=== PATIENT | male | born 1950 | race Caucasian/White ===

== ENCOUNTER 2017-07-01 02:29 | Inpatient (IN) | payer OTHER, MEDICARE ==
[2017-07-01] VITALS (7 sets, daily range): BP systolic 126–164; BP diastolic 57–79
[~2017-07-01] VITALS: Ht 180.3 cm; Wt 112.5 kg
[~2017-07-01 02:29] MED LIST: ASPIRIN81 M2 PO; ASPRIMOX 325 M325 MG PO; BENZTROPINE MES1 MG PO; CELEBREX 200 M200 M1 PO; CLEOCIN HCL150 MG PO; CYMBALTA30 MG PO; EFFEXOR50 MG PO; FLORINEF ACETA0.1 MG PO; HYDROCODON-ACE1 EAC5 PO; INVEGA9 MG PO; LITHIUM CARBON300 M6 PO; LORAZEPAM 0.50.5 MG PO; LOVENOX SC; METAMUCIL PAC1 UDPK1 GT; MIDODRINE HCL 55 M1 PO; MIDODRINE HCL10 MG PO; MIRTAZAPINE45 MG PO; NEURONTIN 300300 M1 PO; NORCO 10-325 T1 EACH; OXCARBAZEPINE600 MG PO; OXYCODONE HCL 55 MG PO; OXYIR 5 MG CAPSU5 M1 PO; PEPCID20 MG PO; PERCOCET 5-3251 EACH PO; QUETIAPINE FUMA50 MG PO; RISPERDAL 1 MG T1 MG PO; RISPERDAL2 MG PO; SEROQUEL XR400 M1 PO; SYNTHROID50 MCG PO; TL-FOL 500 CAP1 EACH PO; TRAMADOL 50 MG50 MG PO; VALIUM5 MG PO; VENLAFAXINE PO; VITAMIN B-12500 MCG PO; XANAX 0.5 MG0.5 M1 PO; XANAX 0.5 MG0.5 MG PO; XARELTO10 M1 PO
[2017-07-01] MEDS ORDERED: EFFEXOR 5050 MG/1 T1 PO (02:45)
[2017-07-01] MEDS ORDERED: QUETIAPINE FUM100 MG PO (02:46)
[2017-07-01] MEDS ORDERED: MIDODRINE HCL 55 M1 PO (02:47)
[2017-07-01] MEDS ORDERED: LITHIUM CARBON300 M6 (02:48)
[2017-07-01] MEDS ORDERED: OMEPRAZOLE40 MG PO (02:48)
[2017-07-01 03:17] LABS: ABSOLUTE EOSINOPHILS 0.4 thou/uL (0.0-0.7); ABSOLUTE LYMPHOCYTES 1.5 thou/uL (0.8-5.3); ABSOLUTE MONOCYTES 0.7 thou/uL (0.0-1.2); ABSOLUTE NEUTROPHILS 4.5 thou/uL (1.6-8.1); BASOPHILS 0.6 %; HEMATOCRIT 43.1 % (42.0-52.0); HEMOGLOBIN 14.4 gm/dL (14.0-18.0); LYMPHOCYTES 20.6 %; MCH 32.3 pg (26.0-34.0); MCHC 33.3 g/dL (28.0-37.0); MONOCYTES 9.8 %; MPV 7.6 fl. (7.2-11.1); NUCLEATED RBCS 0 /100WBC; PLATELET COUNT* 205 thou/uL (150-400); RBC 4.45 mil/uL (4.50-6.00); RDW-CV 14.6 % (10.5-14.5); WBC 7.2 thou/uL (4.0-11.0)
[2017-07-01 03:21] LABS: ANION GAP 2 mmol/L (7-16); BUN 14 mg/dL (7-18); CALCIUM 9.4 mg/dL (8.5-10.1); CHLORIDE 102 mmol/L (98-107); CO2 29 mmol/L (21-32); CREATININE 1.5 mg/dL (0.6-1.3); GLUCOSE 112 mg/dL (70-99); POTASSIUM 3.9 mmol/L (3.5-5.1); SODIUM 133 mmol/L (136-145)
[2017-07-01 03:31] LABS: ALBUMIN 3.9 g/dL (3.4-5.0); ALKALINE PHOSPHATASE 125 U/L (46-116); LIPASE 277 U/L (73-393); NT-PRO BRAIN NAT PEPTIDE 160 pg/mL (<300); SGOT 16 U/L (15-37); SGPT 30 U/L (30-65); TOTAL BILIRUBIN 0.3 mg/dL (<0.1-1.0); TOTAL PROTEIN 6.8 g/dL (6.4-8.2); TROPONIN-I LEVEL <0.06 ng/mL (<0.06)
[2017-07-01 03:41] LABS: URINE BILIRUBIN NEGATIVE (Negative); URINE BLOOD NEGATIVE (Negative); URINE CLARITY CLEAR; URINE COLOR YELLOW; URINE GLUCOSE-RANDOM NEGATIVE (Negative); URINE KETONES NEGATIVE (Negative); URINE LEUKOCYTES-REFLEX NEGATIVE (Negative); URINE NITRITE-REFLEX NEGATIVE (Negative); URINE PROTEIN NEGATIVE (Negative); URINE UROBILINOGEN 0.2 E.U./dl (0.2-1.0)
--- NOTE | 2017-07-01 14:31 | 2DMMODE ---
[place] [address] 2 D/M-MODE ECHOCARDIOGRAM Name: VAUGHNDESTINY ANDRZEJ Room: [facility] IN [facility]#: [id number] Admission: 07/01/17 Attend Phys: Vivienne Marquez, Discharge: Date of : 48 Date of Service: 07/01/17 1430 Report #: [id number] THIS REPORT FOR: //name// APPROVED REPORT Study performed: 07/01/2017 10:28:28 EXAM: Comprehensive 2D, Doppler, and color-flow Echocardiogram Patient Location: In-Patient Room #: [facility] Status: routine BSA: 2.20 HR: 42 bpm BP: 152/71 mmHg Rhythm: NSR Other Information Study Quality: Good Indications Syncope 2D Dimensions LVEF(%): 72.47 (>50%) IVSd: 11.53 (7-11mm) LVOT Diam: 21.04 (18-24mm) LVDd: 52.42 mm PWd: 11.05 (7-11mm) Ascending Ao: 35.79 (22-36mm) LVDs: 30.46 (25-40mm) Aortic Root: 34.77 mm Amador's LVEF: 72.47 % Volumes Left Atrial Volume (Systole) LA ESV Index: 29.40 mL/m2 Aortic Valve AoV Peak Kenyon.: 1.86 m/s AO Peak Gr.: 13.81 mmHg LVOT Max P.93 mmHg AO Mean Gr.: 5.94 mmHg LVOT Mean P.18 mmHg LVOT Max V: 1.22 m/s AO V2 VTI: 39.34 cm LVOT Mean V: 0.65 m/s COREY (VTI): 2.56 cm2 LVOT V1 VTI: 28.96 cm Mitral Valve E/A Ratio: 1.21 [place] [address] 2 D/M-MODE ECHOCARDIOGRAM Name: DESTINY MENDES Room: [address] IN .R.#: [id number] Admission: 07/01/17 Attend Phys: Vivienne Marquez, Discharge: Date of : 48 Date of Service: 07/01/17 1430 Report #: [id number] MV Decel. Time: 178.19 ms MV E Max Kenyon.: 1.10 m/s MV PHT: 51.67 ms MVA (PHT): 4.26 cm2 TDI E/Lateral E': 10.00 E/Medial E': 13.75 Medial E' Kenyon.: 0.08 m/s Lateral E' Kenyon.: 0.11 m/s Pulmonary Valve PV Peak Kenyon.: 1.04 m/s PV Peak Gr.: 4.29 mmHg Left Ventricle The left ventricle is normal size. There is normal LV segmental wall motion. There is normal left ventricular wall thickness. Left ventricular systolic function is normal. The left ventricular ejection fraction is within the normal range. LVEF is 60%. The left ventricular diastolic function is normal. Right Ventricle The right ventricle is normal size. The right ventricular systolic function is normal. Atria The left atrium size is normal. The right atrium size is normal. Aortic Valve Mild aortic valve sclerosis. Trace aortic regurgitation. There is no aortic valvular stenosis. Mitral Valve Mild mitral annular calcification. Mild mitral regurgitation. No evidence of mitral valve stenosis. Tricuspid Valve The tricuspid valve is normal in structure. Unable to assess PA pressure. Trace tricuspid regurgitation. Pulmonic Valve The pulmonary valve is normal in structure. Mild pulmonic regurgitation. Great Vessels The aortic root is normal in size. IVC [place] [address] 2 D/M-MODE ECHOCARDIOGRAM Name: DESTINY MENDES Room: [address] IN [facility]#: [id number] Admission: 07/01/17 Attend Phys: Vivienne Marquez, Discharge: Date of : 48 Date of Service: 07/01/17 1430 Report #: [id number] collapses with >50% inspiration Pericardium There is no pericardial effusion. <Conclusion> The left ventricle is normal size. There is normal left ventricular wall thickness. Left ventricular systolic function is normal. The left ventricular ejection fraction is within the normal range. LVEF is 60%. The left ventricular diastolic function is normal. The left atrium size is normal. Mild aortic valve sclerosis. Trace aortic regurgitation. There is no aortic valvular stenosis. Mild mitral annular calcification. Mild mitral regurgitation. No evidence of mitral valve stenosis. The tricuspid valve is normal in structure. IVC is normal in size and collapses with >50% inspiration There is no pericardial effusion. There is normal LV segmental wall motion. <ELECTRONICALLY SIGNED> By: Leif Ruiz MD, FACC 07/01/17 1430 1430 1430 Leif Ruiz MD, FACC /INF
--- NOTE | 2017-07-01 15:55 | EKG ---
[place] [address] ELECTROCARDIOGRAM REPORT Name: DESTINY MENDES Room: [address] ADM IN M.R.#: [id number] Admission: 07/01/17 Attend Phys: Vivienne Marquez MD Discharge: Date of : 48 Report #: [id number] THIS REPORT FOR: //name// [facility] ED Test Date: 2017-07-01 Test Time: 02:40:29 Pat Name: DESTINY MENDES Department: Room: [facility] Gender: M Software Test Specialist: BETTYE Desai : 1950 Requested By: Maddie Ortega Order Number: [id number] MD: Leif Ruiz Measurements Intervals [place] Rate: 42 P: 20 NM: 181 QRS: -27 QRSD: 130 T: 63 QT: 519 QTc: 434 Interpretive Statements Sinus bradycardia Atrial premature complex Left bundle branch block Compared to ECG 04/03/2017 17:11:43 Heart rate has decreased Electronically Signed On 07-01-2017 15:55:45 CRYSTAL MOUNTER by Leif Ruiz [email or web address] <ELECTRONICALLY SIGNED> By: Leif Ruiz MD, [facility] 07/01/17 1555 0240 0240 Leif Ruiz MD, [facility] /EPI
--- NOTE | 2017-07-01 17:35 | CON ---
[address] [address] CONSULTATION Name: VAUGHNDESTINY DONNELLY Room: [address] IN M.R.#: [id number] Admission: 07/01/17 Attend Phys: Vivienne Marquez MD Discharge: Date of : 48 Report #: [id number] THIS REPORT FOR: //name// CC: Vivienne López DATE OF SERVICE: 07/01/2017 HISTORY OF PRESENT ILLNESS: This is a 67-year-old male patient who was evaluated by me for episodes of syncope. It looks like this patient has a complicated history. He indicates that he started having orthostatic hypotension few years ago. He estimated to be 2-3 years. He has followed up with Cardiology for that. They have tried him on the medications, but that has not helped. During this time, he also developed tremor. Tremor is in both upper extremities. It significantly interferes with the daily activity. He indicated that it is not Parkinson disease, but he does not know what it is. REVIEW OF SYSTEMS: Review of system is complicated by the fact that this patient has a significant psychiatric history and he has used multiple psychiatric medications, including Seroquel and lithium. He does not know what he is on at the moment. He has been diagnosed with bipolar disorder, anxiety and panic attack and now he has multiple syncope episodes. He has bradycardia. He has a history of bipolar disorder. He says that he is not diabetic, but one of the note in the computer indicates that he has a history of that. In any case, it does not look like it is severe, even if he has that. As mentioned above, he denies that. His short-term memory is very poor. I carried out 14-point review of system and he does not think that his vision has changed much. He is not having much respiratory, GI, , musculoskeletal, constitutional, dermatological, hematological, throat, endocrine or allergic symptom associated with the present symptomatology. PAST MEDICAL HISTORY: Positive for psychiatric problem. FAMILY HISTORY: Negative for early age stroke. SOCIAL HISTORY: The patient lives with his and she helps him, but she also works and the patient is able to do the things by himself. He denies the use of alcohol. PHYSICAL EXAMINATION: The patient's examination indicate he is alert. He is responsive. He cannot tell me what month it is. He cannot tell me what day it is. So, his memory is impaired, but his speech looks intact. His cranial nerve examination 2-12 mostly looks unremarkable. His strength looks symmetrical. His position sense is intact. His reflexes are diminished. His tone looks unremarkable. There is no carotid bruit in this patient. There is no thyroid mass. There is no papilledema. There is no meningeal sign. His pulses are [facility] [address] [place] [address] CONSULTATION Name: DESTINY MENDES Room: [address] IN ..#: [id number] Admission: 07/01/17 Attend Phys: Vivienne Marquez MD Discharge: Date of : 48 Report #: [id number] palpable. He has no edema, cyanosis or jaundice. Cardiac examination does not appear to be showing much abnormality clinically, but his blood pressure has been low and his vital signs indicate that his pulse is persistently low. LABORATORY DATA: His hemoglobin is normal and his sodium is a trace low at 133. His TSH is trace high. His lithium level is high. He did have a CT scan of the head, which showed atrophy, but nothing acute. IMPRESSION: Multiple things may be playing a role in the patient's symptoms. He is lithium toxic and that may be contributing to his symptoms. Clinically, it would appear that he is developing dementia and that would correlate with brain atrophy. The main question is whether he is developing multisystem atrophy which is causing him postural hypotension as well as tremor needs to be addressed. He also has been on multiple medications for his psychiatric condition and that can also predispose him to develop Parkinson disease. Dementia can also have autonomic features depending upon what dementia it is and all these things need to be addressed in this patient, but lot of testing like DaTscan need to be done as an outpatient. RECOMMENDATIONS: 1. Agree with the Cardiology consult. 2. I will suggest consult with Psychiatry if it can be obtained to see if he can be put on some more benign medication for his bipolar disorder. 3. As an outpatient, he should have workup starting with a DaTscan and then also may be some consideration need to be given for multisystem atrophy, but that is unfortunately an untreatable condition and postural hypotension of that need to be treated symptomatically. All of it was discussed with the patient in detail and more than 50 minutes of time was spent taking care of this patient today and majority of that time was spent counseling this patient on the above matters. We will get an MRI and B12 done when he is here and we will also try to do a copper level because of his bariatric surgery in the past. <ELECTRONICALLY SIGNED> By: Hardik Jenkins MD 07/01/17 1735 1011 [id number] Jenkins MD /nt
[2017-07-02 04:00] VITALS: BP 152/72
[2017-07-02 05:30] LABS: ABSOLUTE BASOPHILS 0.1 thou/uL (0.0-0.2); ABSOLUTE EOSINOPHILS 0.3 thou/uL (0.0-0.7); ABSOLUTE LYMPHOCYTES 1.5 thou/uL (0.8-5.3); ABSOLUTE MONOCYTES 0.7 thou/uL (0.0-1.2); ABSOLUTE NEUTROPHILS 4.5 thou/uL (1.6-8.1); BASOPHILS 0.9 %; EOSINOPHILS 4.8 %; HEMATOCRIT 42.3 % (42.0-52.0); HEMOGLOBIN 14.4 gm/dL (14.0-18.0); LYMPHOCYTES 21.5 %; MCH 32.6 pg (26.0-34.0); MCHC 34.1 g/dL (28.0-37.0); MCV 95.5 fL (80.0-100.0); MPV 7.5 fl. (7.2-11.1); NUCLEATED RBCS 0 /100WBC; PLATELET COUNT* 209 thou/uL (150-400); POLYS 62.8 %; RBC 4.43 mil/uL (4.50-6.00); RDW-CV 14.3 % (10.5-14.5); WBC 7.2 thou/uL (4.0-11.0)
[2017-07-02 05:38] LABS: CREATININE 1.2 mg/dL (0.6-1.3); POTASSIUM 4.5 mmol/L (3.5-5.1)
[2017-07-02 08:00] VITALS: BP 159/71
[2017-07-02 11:36] VITALS: BP 159/70
[2017-07-02 15:32] VITALS: BP 160/77
[2017-07-02 20:00] VITALS: BP 177/73
[2017-07-03] VITALS: BP 136/57
[2017-07-03 04:00] VITALS: BP 136/69
[2017-07-03 05:31] LABS: ABSOLUTE EOSINOPHILS 0.3 thou/uL (0.0-0.7); ABSOLUTE LYMPHOCYTES 1.8 thou/uL (0.8-5.3); ABSOLUTE MONOCYTES 0.9 thou/uL (0.0-1.2); ABSOLUTE NEUTROPHILS 4.7 thou/uL (1.6-8.1); BASOPHILS 0.6 %; EOSINOPHILS 4.4 %; HEMATOCRIT 44.6 % (42.0-52.0); HEMOGLOBIN 15.2 gm/dL (14.0-18.0); LYMPHOCYTES 23.5 %; MCH 32.4 pg (26.0-34.0); MCV 95.1 fL (80.0-100.0); MONOCYTES 11.1 %; MPV 7.6 fl. (7.2-11.1); NUCLEATED RBCS 0 /100WBC; PLATELET COUNT* 216 thou/uL (150-400); POLYS 60.4 %; RBC 4.69 mil/uL (4.50-6.00); RDW-CV 14.5 % (10.5-14.5); WBC 7.9 thou/uL (4.0-11.0)
[2017-07-03 05:34] LABS: ALBUMIN 3.8 g/dL (3.4-5.0); CALCIUM 9.3 mg/dL (8.5-10.1); CREATININE 1.3 mg/dL (0.6-1.3); POTASSIUM 4.6 mmol/L (3.5-5.1); TOTAL BILIRUBIN 0.7 mg/dL (<0.1-1.0); TOTAL PROTEIN 6.8 g/dL (6.4-8.2)
[2017-07-03 08:00] VITALS: BP 147/69
[2017-07-03 10:51] VITALS: BP 147/69
[2017-07-03 12:07] VITALS: BP 147/69
[2017-07-03 15:37] VITALS: BP 171/79
[2017-09-13] MEDS ORDERED: QUETIAPINE FUM100 MG PO (10:44)
== END 2017-07-03 16:55 | disposition home or self-care (01) | DRG 74 ==
LOC: M.ERS 02:29 → M.ICU 04:14 → M.2W 04:14 → M.TBA-ER 04:14 → M.ICU 07:50 → M.2W 16:41
PROVIDERS: Emergency Medicine; Internal Medicine; ADMIT Internal Medicine
DX: G90.8 Other disorders of autonomic nervous system (principal); E87.1 Hypo-osmolality and hyponatremia; N17.9 Acute kidney failure, unspecified; I95.1 Orthostatic hypotension; K21.9 Gastro-esophageal reflux disease without esophagitis; E11.9 Type 2 diabetes mellitus without complications; F31.9 Bipolar disorder, unspecified; Z96.651 Presence of right artificial knee joint; G47.33 Obstructive sleep apnea (adult) (pediatric); S69.91XA Unspecified injury of right wrist, hand and finger(s), initial encounter; T56.894A Toxic effect of other metals, undetermined, initial encounter; G20 Parkinson's disease; F32.9 Major depressive disorder, single episode, unspecified; I48.0 Paroxysmal atrial fibrillation; I25.10 Atherosclerotic heart disease of native coronary artery without angina pectoris; F41.0 Panic disorder [episodic paroxysmal anxiety]; W19.XXXA Unspecified fall, initial encounter; F02.80 Dementia in other diseases classified elsewhere, unspecified severity, without behavioral disturbance, psychotic disturbance, mood disturbance, and anxiety; Z90.49 Acquired absence of other specified parts of digestive tract; Z79.899 Other long term (current) drug therapy; Z79.82 Long term (current) use of aspirin; Z91.048 Other nonmedicinal substance allergy status; Y93.89 Activity, other specified; Y92.89 Other specified places as the place of occurrence of the external cause; Y99.8 Other external cause status; Z87.891 Personal history of nicotine dependence

== ENCOUNTER 2017-07-24 18:08 | Inpatient (IN) | payer OTHER, MEDICARE ==
[~2017-07-24] VITALS: Ht 175.3 cm; Wt 114.8 kg
--- NOTE | ~2017-07-24 | PROC ---
[address] [address] PROCEDURE REPORT Name: DESTINY MENDES Room: [address] ADM IN M.R.#: [id number] Admission: 07/24/17 Attend Phys: Pelon German MD Discharge: Date of : 48 Report #: [id number] THIS REPORT FOR: //name// For GI report, please see the Provation report in Perceptive 7 content. By: [id number] Records Staff RAOUL /SANTO
[~2017-07-24 18:08] MED LIST changes: +EFFEXOR 5050 MG/1 T1 PO; +LITHIUM CARBON300 M6; +OMEPRAZOLE40 MG PO; +QUETIAPINE FUM100 MG PO
[2017-07-24 18:11] VITALS: BP 106/60
[2017-07-24] MEDS ORDERED: LITHIUM CARBON300 M3 PO (18:21)
--- NOTE | 2017-07-24 18:21 | NUR ---
EMPTY BOTTLES BY PT LITHIUMCARBONATE 300MG DATED 06/12/17 #90 LEVOTHYROXINE 50MG DATED 06/12/17 #30 VENLAFAXINE HCL 100MG DATED 06/09/17 #60 ALPRAZOLAM 0.5 MG DATED 07/03/17 #90 QUETIAPINEFUMARATE 300MG 06/11/17 #60
[2017-07-24 18:28] LABS: URINE BILIRUBIN NEGATIVE (Negative); URINE BLOOD NEGATIVE (Negative); URINE CLARITY CLEAR; URINE COLOR STRAW; URINE GLUCOSE-RANDOM NEGATIVE (Negative); URINE KETONES NEGATIVE (Negative); URINE LEUKOCYTES-REFLEX NEGATIVE (Negative); URINE NITRITE-REFLEX NEGATIVE (Negative); URINE PROTEIN NEGATIVE (Negative); URINE SPECIFIC GRAVITY <= 1.005 (1.005-1.030); URINE UROBILINOGEN 0.2 E.U./dl (0.2-1.0)
[2017-07-24 18:28] LABS: ABSOLUTE BASOPHILS 0.1 thou/uL (0.0-0.2); ABSOLUTE EOSINOPHILS 0.2 thou/uL (0.0-0.7); ABSOLUTE LYMPHOCYTES 2.5 thou/uL (0.8-5.3); ABSOLUTE MONOCYTES 0.6 thou/uL (0.0-1.2); ABSOLUTE NEUTROPHILS 4.7 thou/uL (1.6-8.1); BASOPHILS 1.1 %; HEMATOCRIT 41.3 % (42.0-52.0); LYMPHOCYTES 30.9 %; MCH 32.3 pg (26.0-34.0); MCHC 33.9 g/dL (28.0-37.0); MCV 95.3 fL (80.0-100.0); MONOCYTES 7.1 %; MPV 7.1 fl. (7.2-11.1); NUCLEATED RBCS 0 /100WBC; PLATELET COUNT* 160 thou/uL (150-400); POLYS 57.9 %; RBC 4.33 mil/uL (4.50-6.00); RDW-CV 14.6 % (10.5-14.5); WBC 8.1 thou/uL (4.0-11.0)
[2017-07-24 18:35] LABS: AMP/METHAMP Negative (Negative); BARBITURATES Negative (Negative); BENZODIAZEPINES POSITIVE (Negative); COCAINE Negative (Negative); METHADONE Negative (Negative); OPIATES Negative (Negative); PCP Negative (Negative); THC Negative (Negative)
[2017-07-24 18:39] LABS: ANION GAP 8 mmol/L (7-16); BUN 11 mg/dL (7-18); CALCIUM 8.1 mg/dL (8.5-10.1); CHLORIDE 103 mmol/L (98-107); CO2 27 mmol/L (21-32); CREATININE 1.2 mg/dL (0.6-1.3); GLUCOSE 84 mg/dL (70-99); SODIUM 138 mmol/L (136-145)
[2017-07-24 18:40] LABS: POTASSIUM 4.3 mmol/L (3.5-5.1)
[2017-07-24 18:44] LABS: ACETAMINOPHEN < 2 ug/mL (10-30); ALCOHOL 118 mg/dL (<10); SALICYLATE < 2.8 mg/dL (2.8-20.0)
[2017-07-24 18:46] LABS: ALBUMIN 3.4 g/dL (3.4-5.0); ALKALINE PHOSPHATASE 91 U/L (46-116); SGOT 58 U/L (15-37); SGPT 38 U/L (30-65); TOTAL BILIRUBIN 0.6 mg/dL (<0.1-1.0); TOTAL PROTEIN 6.2 g/dL (6.4-8.2); TROPONIN-I LEVEL <0.06 ng/mL (<0.06)
--- NOTE | 2017-07-24 19:10 | NUR ---
PT TRANSPORTED TO CT WITH THIS RN ON MONITOR, ON O2 PER NC AT THIS TIME.
--- NOTE | 2017-07-24 19:33 | NUR ---
PT RETURNED FROM CT AT THIS TIME.
--- NOTE | 2017-07-24 21:30 | NUR ---
PT INCREASINGLY SOMNOLENT WITH DECREASED GAG REFLEX FROM BASELINE AND DECREASED SPO2. ORAL AIRWAY SUCTIONED WITH MINIMAL IMPROVEMENT, DEEP NT SUCTION PERFORMED PER ELBERT MURPHY RN WITH NOTED IMPROVEMENT-95% ON 3L/MIN NC.
--- NOTE | 2017-07-24 21:50 | NUR ---
DR. SYLVESTER NOTIFIED OF LOSS OF GAG REFLEX AND NO RESPONSE TO NOXIOUS STIMULI- STERNAL RUB, LOUD VERBAL AND PRESSURE TO TOENAILS ALL FAILED TO OBTAIN ANY SORT OF REACTION/RESPONSE FROM PATIENT. PREPARATION FOR EMERGENT INTUBATION AND CENTRAL LINE PLACEMENT (R/T PT'S BLOOD PRESSURE CONTINUALLY DECLINING AND DESPITE REPOSITIONING OF CUFF, IVF, ETC MAP IS STAYING BELOW 60.
--- NOTE | 2017-07-24 22:38 | NUR ---
TRIPLE LUMEN CENTRAL LINE PLACED IN LEFT IJ PER DR. SYLVESTER AFTER SEVERAL UNSUCCESSFUL ATTEMPTS IN LEFT SUBCLAVIAN. HEMATOMA PRESENT ON LEFT NECK/SHOULDER JUNCTION BUT TRIPLE LUMEN FLUSHES WITHOUT DIFFICULTY AND WITHOUT ANY NOTABLE INCREASE OF SWELLING TO AREA.
--- NOTE | 2017-07-24 23:00 | NUR ---
ATTEMPT X2 WITH OG INSERTION UNSUCCESSFUL PER THIS RN. ATTEMPT X1 IN RT NARE UNSUCCESSFUL. 18F NG PLACED IN LT NARE.
--- NOTE | 2017-07-24 23:05 | NUR ---
XRAY TO BEDSIDE FOR CONFIRMATION OF CENTRAL LINE, PLACEMENT OF ETT AND NG TUBE.
--- NOTE | 2017-07-24 23:10 | NUR ---
NG REMOVED FROM LEFT NARE POSITIONING INCORRECT. DR. SYLVESTER UPDATED.
--- NOTE | 2017-07-24 23:22 | NUR ---
BG=54. VERBAL ORDER FOR AMP D50 AND MED ADMINISTERED AT THIS TIME. OK TO USE CENTRAL LINE PER VERBAL CONFIRMATION ROOPA LAIRD GTT SWITCHED FROM RT WRIST IV TO CENTRAL LINE.
--- NOTE | 2017-07-24 23:27 | NUR ---
LEVOPHED GTT INCREASED TO 3MCG/MIN (BP=82/46, HR=55,OOJ5=611%)
[2017-07-24 23:35] VITALS: BP 90/50
[2017-07-25] VITALS (24 sets, daily range): BP systolic 98–145; BP diastolic 47–86
[2017-07-25 03:58] LABS: HEMATOCRIT 39.4 % (42.0-52.0); HEMOGLOBIN 13.5 gm/dL (14.0-18.0); MCH 32.6 pg (26.0-34.0); MCHC 34.2 g/dL (28.0-37.0); MCV 95.4 fL (80.0-100.0); RBC 4.13 mil/uL (4.50-6.00); RDW-CV 14.6 % (10.5-14.5); WBC 8.9 thou/uL (4.0-11.0)
[2017-07-25 04:07] LABS: CALCIUM 7.4 mg/dL (8.5-10.1); CREATININE 1.1 mg/dL (0.6-1.3); MAGNESIUM 1.9 mg/dL (1.8-2.4); POTASSIUM 4.2 mmol/L (3.5-5.1)
--- NOTE | 2017-07-25 05:13 | NUR ---
PT. ADMITTED TO BED 3 ICU AT 0000, PT. APPARENTLY OVERDOSED INTENTIONALLY ON MEDICATION. BEGAN TO DECLINE AND BECAME UNRESPONSIVE IN ED, EMERGENTLY INTUBATED. NO FAMILY PRESENT UPON ADMISSION. PT. RESPONDS TO PAINFUL STIMULI (SEE ASSESSMENT). LEVOPHED GTT. POISON CONTROL ON BOARD. WILL CONTINUE TO MONITOR.
--- NOTE | 2017-07-25 05:31 | NUR ---
ATTEMPT MADE TO GET OG/NG DOWN, UNABLE TO ACCOMPLISH. PROGRESSES TO 45CM THEN HITS SOMETHING AND STARTS TO COIL. DR. THORPE PAGED. LITHIUM LEVEL CRITICAL THIS A.M. AT 4.2. PT. HAS STILL NOT REQUIRED ANY SEDATION. DOES RESPOND TO PAINFUL STIMULI. LEVOPHED GTT AT 1MCG/MIN. WILL CONTINUE TO MONITOR.
[2017-07-25 06:00] LABS: HCO3 22.7 mmol/L (22.0-26.0); PCO2 42.7 mmHg (35.0-45.0); pH 7.343 (7.340-7.450)
[2017-07-25 06:01] LABS: PO2 167.3 mmHg (75.0-100.0)
--- NOTE | 2017-07-25 10:32 | NUR ---
Nutrition: Per ICU rounds, pt is intubated. Cannot place OG d/t h/o gastric bypass. Pt had low BG, given IVF. On propofol. Dialysis cath. Per ICU rounds, pt will remain intubated today, and will try to extubate tomorrow. RD will follow as needed, per protocol.
--- NOTE | 2017-07-25 11:13 | NUR ---
PT ADMITTED YESTERDAY, FOUND DOWN AT HOME BY , MULTIPLE EMPTY PILL BOTTLES. PT INTUBATED IN THE E.D. AND REMAINS ON VENT. PT CURRENTLY ON DIALYSIS. SPOKE WITH AT BEDSIDE, EXPLAINED ROLE OF CASE MGT. SHE HAS NO QUESTIONS ABOUT PLAN OF CARE AT THIS TIME. CASE MGT WILL CONTINUE TO FOLLOW.
--- NOTE | 2017-07-25 15:37 | EKG ---
[place] [address] ELECTROCARDIOGRAM REPORT Name: DESTINY MENDES Room: [address] ADM IN M.R.#: [id number] Admission: 07/24/17 Attend Phys: Pelon German MD Discharge: Date of : 48 Report #: [id number] THIS REPORT FOR: //name// [facility] ED Test Date: 2017-07-24 Test Time: 18:43:58 Pat Name: DESTINY MENDES Department: Room: [address] Gender: M Control Officer Manager: SUSAN : 1950 Requested By: Gage Becerra Order Number: [id number] Rosibel MD: Denny Hodge Measurements Intervals [place] Rate: 57 P: 47 NH: 200 QRS: -21 QRSD: 128 T: 74 QT: 478 QTc: 466 Interpretive Statements Sinus rhythm Left bundle branch block Baseline wander in lead(s) V2,V3 Compared to ECG 07/01/2017 02:40:29 Sinus bradycardia no longer present Atrial premature complex(es) no longer present Electronically Signed On 07-25-2017 15:36:51 COIL MACHINE SUPERVISOR by Denny Hodge [email or web address] <ELECTRONICALLY SIGNED> By: Denny Hodge MD, FACC 07/25/17 1536 1843 1843 Denny Hodge MD, [facility] /EPI
[2017-07-25 16:53] LABS: ALBUMIN 2.7 g/dL (3.4-5.0); CREATININE 1.1 mg/dL (0.6-1.3); POTASSIUM 3.5 mmol/L (3.5-5.1); TOTAL BILIRUBIN 0.5 mg/dL (<0.1-1.0); TOTAL PROTEIN 5.1 g/dL (6.4-8.2)
[2017-07-25 17:18] LABS: BE 2.7 mmol/L (-2 to +3); HCO3 26.4 mmol/L (22.0-26.0); PCO2 37.7 mmHg (35.0-45.0); PO2 94.5 mmHg (75.0-100.0); pH 7.463 (7.340-7.450)
--- NOTE | 2017-07-25 20:49 | NUR ---
PT. CRRT STARTING AT THIS TIME.
--- NOTE | 2017-07-25 21:33 | NUR ---
HEMODIALYSIS NURSE TROUBLESHOOTING CRRT MACHINE AT THIS TIME. AWAITING FOR CRRT TO BEGIN.
[2017-07-26] VITALS (24 sets, daily range): BP systolic 102–144; BP diastolic 46–86
[2017-07-26 02:08] LABS: HEPATITIS B SURFACE AG Negative (Negative)
--- NOTE | 2017-07-26 05:01 | NUR ---
CRRT THROUGHOUT SHIFT, START TIME 2100. ORDERED 0 FLUID REMOVAL. PT. REMAINS SEDATED ON PROPOFOL GTT, WITH IVF INFUSING. AFIB ON MONITOR AT THIS TIME. PT. DOES RESPOND TO STIMULI, DOES NOT FOLLOW COMMANDS. BILAT SOFT WRIST RESTRAINTS IN PLACE. WILL CONTINUE TO MONITOR.
[2017-07-26 05:20] LABS: ABSOLUTE EOSINOPHILS 0.3 thou/uL (0.0-0.7); ABSOLUTE LYMPHOCYTES 0.8 thou/uL (0.8-5.3); ABSOLUTE MONOCYTES 0.5 thou/uL (0.0-1.2); ABSOLUTE NEUTROPHILS 5.2 thou/uL (1.6-8.1); BASOPHILS 0.4 %; EOSINOPHILS 3.8 %; HEMATOCRIT 34.3 % (42.0-52.0); HEMOGLOBIN 11.7 gm/dL (14.0-18.0); LYMPHOCYTES 11.7 %; MCHC 34.2 g/dL (28.0-37.0); MCV 96.7 fL (80.0-100.0); MPV 7.7 fl. (7.2-11.1); NUCLEATED RBCS 0 /100WBC; PLATELET COUNT* 103 thou/uL (150-400); POLYS 76.1 %; RBC 3.55 mil/uL (4.50-6.00); RDW-CV 14.9 % (10.5-14.5); WBC 6.8 thou/uL (4.0-11.0)
[2017-07-26 05:36] LABS: CALCIUM 7.3 mg/dL (8.5-10.1); CREATININE 0.9 mg/dL (0.6-1.3); POTASSIUM 3.7 mmol/L (3.5-5.1)
[2017-07-26 05:45] LABS: ALBUMIN 2.7 g/dL (3.4-5.0); CALCIUM 7.2 mg/dL (8.5-10.1); CREATININE 0.9 mg/dL (0.6-1.3); MAGNESIUM 1.7 mg/dL (1.8-2.4); POTASSIUM 3.7 mmol/L (3.5-5.1)
[2017-07-26 10:02] LABS: CALCIUM 7.3 mg/dL (8.5-10.1); CREATININE 0.9 mg/dL (0.6-1.3); MAGNESIUM 1.5 mg/dL (1.8-2.4); PHOSPHORUS* 1.6 mg/dL (2.5-4.9); POTASSIUM 3.5 mmol/L (3.5-5.1)
--- NOTE | 2017-07-26 10:40 | NUR ---
ASSUMED PT CARE 0730. PT INTUBATED. NO CHANGES TO SETTINGS MADE. AROUND 0830 PT BECAME AGITATED, BITING ON E-TUBE, PROPOFOL INCREASED TO 60 MCG/KG/MIN. PT AFEBRILE. ASSESSMENTS CHARTED. RECEIVED CALL FROM POISON CONTROL. GAVE UPDATE ON PT. POSION CONTROL RECOMMENDED PT HAVE THYROID LEVELS CHECKED AND CARDIOLOGY CONSULT ( PT HAS HX OF CHF AND HAVING SYMPTOMS OF DYSRRHTHMIA). POISON CONTROLL NUMBER [phone]
--- NOTE | 2017-07-26 13:07 | NUR ---
Nutrition: Pt was not extubated as planned. RNs busy today, unable to speak with them for POC. Pt has no nutrition at this time. Unable to place OG tube d/t s/p gastric bypass. Will follow up 07/29/17, for POC. Will recommend nutrition support at that time, if pt not extubated.
--- NOTE | 2017-07-26 14:20 | 2DMMODE ---
[place] [address] 2 D/M-MODE ECHOCARDIOGRAM Name: VAUGHNDESTINY ANDRZEJ Room: 003P ADM IN [facility]#: [id number] Admission: 07/24/17 Attend Phys: Pelon German, Discharge: Date of : 48 Date of Service: 07/26/17 1420 Report #: [id number] THIS REPORT FOR: //name// APPROVED REPORT Study performed: 07/26/2017 13:34:14 EXAM: Comprehensive 2D, Doppler, and color-flow Echocardiogram Patient Location: In-Patient Room #: 003 Status: routine BSA: 2.37 HR: 53 bpm BP: 111/63 mmHg Rhythm: NSR Other Information Study Quality: Fair Indications Arrhythmia Bradycardia 2D Dimensions LVEF(%): 69.86 (>50%) IVSd: 12.40 (7-11mm) LVOT Diam: 19.41 (18-24mm) LVDd: 44.84 mm PWd: 10.20 (7-11mm) Ascending Ao: 33.76 (22-36mm) LVDs: 27.25 (25-40mm) Aortic Root: 34.04 mm Amador's LVEF: 69.86 % Volumes Left Atrial Volume (Systole) LA ESV Index: 27.30 mL/m2 Aortic Valve AoV Peak Kenyon.: 1.45 m/s AO Peak Gr.: 8.46 mmHg LVOT Max P.88 mmHg AO Mean Gr.: 4.76 mmHg LVOT Mean P.02 mmHg LVOT Max V: 1.10 m/s AO V2 VTI: 30.50 cm LVOT Mean V: 0.63 m/s COREY (VTI): 2.35 cm2 LVOT V1 VTI: 24.26 [place] [address] 2 D/M-MODE ECHOCARDIOGRAM Name: DESTINY MENDES Room: [address] IN .R.#: [id number] Admission: 07/24/17 Attend Phys: Pelon German, Discharge: Date of : 48 Date of Service: 07/26/17 1420 Report #: [id number] E/A Ratio: 1.09 MV Decel. Time: 178.19 ms MV E Max Kenyon.: 0.83 m/s MV PHT: 51.67 ms MVA (PHT): 4.26 cm2 TDI E/Lateral E': 7.55 E/Medial E': 13.83 Medial E' Kenyon.: 0.06 m/s Lateral E' Kenyon.: 0.11 m/s Pulmonary Valve PV Peak Kenyon.: 0.89 m/s PV Peak Gr.: 3.14 mmHg Tricuspid Valve TR Peak Gr.: 18.93 mmHg RVSP: 23.00 mmHg Left Ventricle The left ventricle is normal size. There is normal LV segmental wall motion. Mild concentric left ventricular hypertrophy. Left ventricular systolic function is normal. The left ventricular ejection fraction is within the normal range. LVEF is 60-65%. The left ventricular diastolic function is normal. Right Ventricle The right ventricle is normal size. The right ventricular systolic function is normal. Atria The left atrium size is normal. The right atrium size is normal. Aortic Valve The aortic valve is normal in structure. No aortic regurgitation is present. There is no aortic valvular stenosis. Mitral Valve The mitral valve is normal in structure. Mild mitral regurgitation. No evidence of mitral valve stenosis. Tricuspid Valve The tricuspid valve is normal in structure. Trace tricuspid regurgitation. The RVSP is ___23____ mmHg. Pulmonic Valve Pulmonic valve is not well visualized. There [place] [address] 2 D/M-MODE ECHOCARDIOGRAM Name: DESTINY MENDES ANDRZEJ Room: [address] IN .R.#: [id number] Admission: 07/24/17 Attend Phys: Pelon German, Discharge: Date of : 48 Date of Service: 07/26/17 1420 Report #: [id number] regurgitation. Great Vessels The aortic root is normal in size. IVC is not well visualized. Pericardium There is no pericardial effusion. <Conclusion> Mild concentric left ventricular hypertrophy. LVEF is 60-65%. <ELECTRONICALLY SIGNED> By: Torito Rizzo MD, FACC 07/26/17 1420 1420 142 Torito Rizzo MD, FACC /INF
[2017-07-26 15:06] LABS: ABSOLUTE EOSINOPHILS 0.3 thou/uL (0.0-0.7); ABSOLUTE LYMPHOCYTES 0.7 thou/uL (0.8-5.3); ABSOLUTE MONOCYTES 0.5 thou/uL (0.0-1.2); ABSOLUTE NEUTROPHILS 4.5 thou/uL (1.6-8.1); BASOPHILS 0.5 %; EOSINOPHILS 5.2 %; HEMATOCRIT 31.3 % (42.0-52.0); HEMOGLOBIN 10.9 gm/dL (14.0-18.0); LYMPHOCYTES 11.5 %; MCH 33.6 pg (26.0-34.0); MCHC 34.9 g/dL (28.0-37.0); MCV 96.3 fL (80.0-100.0); MONOCYTES 8.2 %; MPV 7.8 fl. (7.2-11.1); NUCLEATED RBCS 0 /100WBC; PLATELET COUNT* 73 thou/uL (150-400); POLYS 74.6 %; RBC 3.25 mil/uL (4.50-6.00); RDW-CV 15.1 % (10.5-14.5)
--- NOTE | 2017-07-26 15:20 | EKG ---
[place] [address] ELECTROCARDIOGRAM REPORT Name: DESTINY MENDES Room: [address] ADM IN M.R.#: [id number] Admission: 07/24/17 Attend Phys: Pelon German MD Discharge: Date of : 48 Report #: [id number] THIS REPORT FOR: //name// [facility] Test Date: 2017-07-26 Test Time: 12:05:00 Pat Name: DESTINY MENDES Department: Room: [address] Gender: M Blasting Cap Assembler: RITO : 1950 Requested By: Jordon Kwon Order Number: [id number] Rosibel MD: Torito Rizzo Measurements Intervals [place] Rate: 58 P: -2 MN: 180 QRS: -15 QRSD: 129 T: 153 QT: 488 QTc: 480 Interpretive Statements Sinus rhythm Supraventricular bigeminy Sinus pause nonspecific intraventricular conduction defect nonspecific st changes Compared to ECG 07/24/2017 18:43:58 Atrial premature complex(es) now present Sinus pause or arrest now present Electronically Signed On 07-26-2017 15:20:19 DEVELOPMENTAL SPECIALIST by Torito Rizzo [email or web address] <ELECTRONICALLY SIGNED> By: Torito Rizzo MD, [facility] 07/26/17 1520 1205 1205 Torito Rizzo MD, [facility] /EPI
[2017-07-26 15:25] LABS: ALBUMIN 2.4 g/dL (3.4-5.0); DIRECT BILIRUBIN 0.1 mg/dL (<0.1-0.3); TOTAL BILIRUBIN 0.4 mg/dL (<0.1-1.0); TOTAL PROTEIN 4.7 g/dL (6.4-8.2)
[2017-07-26 16:14] LABS: CALCIUM 7.6 mg/dL (8.5-10.1); CREATININE 0.8 mg/dL (0.6-1.3); MAGNESIUM 1.6 mg/dL (1.8-2.4); PHOSPHORUS* 1.7 mg/dL (2.5-4.9); POTASSIUM 3.7 mmol/L (3.5-5.1)
--- NOTE | 2017-07-26 18:00 | NUR ---
PER PULMONARY NO WEANING TRIAL TODAY OR TOMORROW. ASKED DR FOR CARDIOLOGY CONSULT RECOMMENED BY POISON CONTROLL. PER POISON CONTROLL LOOKING FOR SIGNS OF THYROID STORM AND RECOMMENDED CHECKING THYROID FROM 48 HOURS OF ADMISSION. ORDERS RECEIVED. ASKED FOR GI CONSULT FOR OG PLACEMENT, ORDERS RECEIVED. BLOOD GLUCOSE LEVELS LOW IN 40'S. ASKED FOR D5 TO INCREASE TO D10. ORDERS RECEIVED. BLOOD SUGARS MAINTING >55. CARDIOLOGY NOTIFIED OF BRADYCARDIA. PSYCH CAME TO VISIT PT TODAY. PSYCH ASKED TO BE CALLED WITH PT OFF VENTILATOR. CORE TEMP 96.[address] NOTIFIED. NO ORDERS RECEIVED. IVANIA QUIROZ APPLIED TO PT. CORE TEMP INCREASED TO 97.9
--- NOTE | 2017-07-26 19:35 | NUR ---
RECEIVED CALL FROM NEPHROLOGY. DR AWARE OF LITHIUM LEVELS OF 1.7. NEPHROLOGY ORDERED LITHIUM LEVELS NOW AND TO CONTINUE CRRT UNTIL CLOTS OFF . THEN CHECK LITHIUM LEVELS 6 HOURS FROM TIME OF CLOTTING OFF AND THEN A SECOND LITHIUM LEVEL 6 HOURS FROM THAT TIME.
--- NOTE | 2017-07-26 21:00 | NUR ---
SPOKE WITH DR GARCIA RE: PT NOT HAVING A OG IN AND WE NEED TO DECOMPRESS THE PT'S STOMACH. STATED THAT THE SURGEON THAT DID THE GASTRIC SLEEVE STATED THAT THE PT PROBABLY HAD A PILL BOLUS BECAUSE HIS STOMACH IS TO SMALL TO OBTAIN ALL THE PILLS HE TOOK. DR GARCIA STATED THAT IF PT HAD A PILL BOLUS THAN THE PILLS SHOULD HAVE DESOLVED. WILL TRY TO PLACE OG NOW. OG WAS PLACED WITHOUT ANY DIFFICULTY. CONFIRMED BY AUSCULTATION AND X RAY. OG WAS SET TO LIS.
[2017-07-26 21:35] LABS: CALCIUM 7.5 mg/dL (8.5-10.1); CREATININE 0.8 mg/dL (0.6-1.3); MAGNESIUM 1.6 mg/dL (1.8-2.4); PHOSPHORUS* 2.3 mg/dL (2.5-4.9); POTASSIUM 3.7 mmol/L (3.5-5.1)
--- NOTE | 2017-07-26 22:00 | NUR ---
SPOKE TO DR CARTER RE: PT HAVING TREMORS AND ATIVAN 2 MG IV HELPED FOR 30 MIN AND IT STARTED AGAIN. SHE CHANGED THE DOSE OF THE ATIVAN.
--- NOTE | 2017-07-26 22:15 | NUR ---
SPOKE WITH DUSTIN WITH POISON CONTROL. GAVE UPDATE ON PT AND TOLD HER THAT HE GOT HYPOTHERMIC THROUGH OUT THE DAY, TEMP CURRENTLY 97.9. ALSO, DISCUSSED THE TREMORS THAT THE PT HAS. SHE STATED THAT SEVERAL PILLS THAT PT TOOK COULD BE SEIZURES. EXPLAINED TO HER THAT ATIVAN 2MG STOPPED THE TREMORS FOR ABOUT 30 MIN AND IT STARTED AGAIN. SHE SUGGEST THAT A EEG GETS DONE TONIGHT. SPOKE TO DR GARCIA RE: THE TREMORS AND WHAT POISON CONTROL SUGGESTED AND DR GARCIA SAID TO CALL THE TECH IN TO ONE. RONNI (PASTRY MIXER) CALLED.
--- NOTE | 2017-07-26 23:26 | NUR ---
RONNI(PROSTHETIC AIDES TEACHER) AT BEDSIDE
[2017-07-27] VITALS (19 sets, daily range): BP systolic 99–155; BP diastolic 40–69
--- NOTE | 2017-07-27 05:49 | NUR ---
MINIMAL PROGRESSION TOWARDS GOALS. ASSESSMENT AND VS OBTAINED, SEE CHARTING. WINDOWS 7 DEPLOYMENT LEAD ON AND TRACING SR WITH BIGEMIMY. PT'S TEMP WAS NORMAL AND THERE WAS NO USE OF THE IVANIA WARMER. EEG THAT WAS DONE LAST NIGHT WAS NORMAL. TREMORS HAVE DECREASED. TREMORS START WITH CARE AND DON'T LAST BUT A MIN. ATIVAN WAS GIVEN ONLY ONCE. PT REMAINS ON VENT ORDERED. OG WAS PLACED AT 63 AT THE LIP TO LIS. HAVE GOTTEN 100ML OF SECRETIONS. LUNG SOUNDS HAVE WORSENED THROUGH OUT THE NIGHT AND THE CXR WAS ORDER TO EVALUATE. CXR SHOWED SOME INFILTRATES. CRRT CLOTTED OFF AT 0030 AND BLOOD WAS RETURNED AND HEPARIN WAS PLACED IN PORTS. ORDERS STATES TO DRAW LITHIUM LAVEL 6 HOURS AFTER AND THEN 6 HOURS AFTER THAT ONE. BLOOD DRAWS ARE AT 0700 AND 1300. PT HAS HAD NORML BS WITH THE CHANGE OF FLUIDS TO D10.
[2017-07-27 06:28] LABS: HEMATOCRIT 31.1 % (42.0-52.0); HEMOGLOBIN 10.7 gm/dL (14.0-18.0); MCHC 34.2 g/dL (28.0-37.0); MCV 96.3 fL (80.0-100.0); MPV 7.3 fl. (7.2-11.1); RBC 3.23 mil/uL (4.50-6.00); RDW-CV 14.5 % (10.5-14.5); WBC 6.7 thou/uL (4.0-11.0)
[2017-07-27 06:40] LABS: ALBUMIN 2.4 g/dL (3.4-5.0); CALCIUM 7.5 mg/dL (8.5-10.1); CREATININE 0.9 mg/dL (0.6-1.3); MAGNESIUM 1.8 mg/dL (1.8-2.4); POTASSIUM 3.7 mmol/L (3.5-5.1); TOTAL BILIRUBIN 0.3 mg/dL (<0.1-1.0); TOTAL PROTEIN 4.8 g/dL (6.4-8.2)
--- NOTE | 2017-07-27 07:00 | CON ---
[address] [address] CONSULTATION Name: VAUGHNDESTINY DONNELLY Room: [address] ADM IN M.R.#: [id number] Admission: 07/24/17 Attend Phys: Pelon German MD Discharge: Date of : 48 Report #: [id number] THIS REPORT FOR: //name// CC: EDINSON German CONSULT REQUESTED BY: Hospitalist Service. HISTORY OF PRESENT ILLNESS: The patient is a 67-year-old gentleman with past medical histories as mentioned below. This does include a history of heavy alcohol intake. There is no known current alcohol intake. The patient also has a previous history of smoking. The patient is now admitted with a drug overdosage, he has a critical high lithium level, also was positive for benzodiazepines. The patient tested negative for opiates on admission. He also was noted to have an alcohol level around 118 on admission. The patient as noted; however, despite having pinpoint pupils, was negative for opiates. On arrival, the patient was given Narcan by EMS. The patient currently is intubated. He is oxygenating and ventilating adequately to clear lithium. He has just been started on hemodialysis. The patient was hypotensive during the night requiring norepinephrine. At this time, he is maintaining blood pressure, remains on IV fluids, but he is no longer on pressors. The patient is only requiring low-dose sedation with just 10 of propofol running at this time. The patient is on the ventilator and therefore is unable to provide further history or review of systems. PAST MEDICAL HISTORY: Alcohol intoxication, benzodiazepine overdose. He has had lithium toxicity in the past as well. He takes midodrine for orthostatic hypotension. There is a possibility of COPD secondary to smoking in the past; however, there is no documentation of this in the chart, suicidal attempts in the past, syncope. The patient's last echocardiogram is from last month and shows a left ventricular ejection fraction of 60% with a right heart pressure not reported to be elevated. SOCIAL HISTORY: Previous history of smoking, reported to have discontinued more than a year ago, unable to quantify at this time. Previous history of heavy alcohol use, he is not reported to have any current alcohol use. History of benzodiazepine use, information regarding previous narcotic use is not available at this time. There is no documentation of narcotic use, however. ALLERGIES: TAPE. FAMILY HISTORY: The patient is unable to provide family history. CURRENT MEDICATIONS: List in [facility] and reviewed. PHYSICAL EXAMINATION: [place] [address] CONSULTATION Name: DESTINY MENDES Room: [address] IN [facility]#: [id number] Admission: 07/24/17 Attend Phys: Pelon German MD Discharge: Date of : 48 Report #: [id number] GENERAL: He is on the ventilator, sedated with 10 of propofol, tidal volume 550, AC rate is 16. He is not overbreathing. He is 40% FiO2, 5 of PEEP, saturating in the high 90s, heart rate 51, blood pressure 118/64, temperature 37.2. HEENT: Pupils midposition and reactive. Endotracheal tube in place. NECK: Does not show raised JVP, asymmetry, mass or lymph nodes. CHEST: Symmetrical expansion on inspection and palpation. On auscultation, chest is clear. HEART: Regular, no murmur. ABDOMEN: Soft and nontender. EXTREMITIES: No edema, no calf tenderness. LABORATORY DATA: The patient's arterial blood gases as well as his chest x-rays and lab work are in [facility] and these are reviewed. ASSESSMENT AND PLAN: 1. Acute hypoxemic respiratory failure secondary to drug overdosage. At this time, we will plan to keep him on the ventilator today. We will plan to try to wean him off the ventilator tomorrow. For now, low-dose propofol is reasonable. I will leave a p.r.n. fentanyl order on the chart. If needed, the patient can potentially be given scheduled fentanyl; however, I did not order any at this time. 2. Drug overdosage with suicidal attempt, the discussion is as above. The patient would need a sitter and would also benefit from a psychiatric consultation after extubation. 3. Critical high lithium levels/lithium toxicity. The patient is receiving hemodialysis for this reason. 4. Deep vein thrombosis prophylaxis, he is on Lovenox 5. Gastrointestinal prophylaxis. If no contraindications, then suggest considering Pepcid. 6. Possibility of aspiration. There is no definite history in this regard. Therefore, I did not order antibiotics at this time. Follow chest x-rays closely. The patient remains critically ill at this time. Total time spent providing critical care to this patient today is 36 minutes. <ELECTRONICALLY SIGNED> By: Elsa Magana MD 07/27/17 0700 1107 [id number] Simmons MD /nt
[2017-07-27 09:02] LABS: BE -0.5 mmol/L (-2 to +3); HCO3 23.2 mmol/L (22.0-26.0); PCO2 34.8 mmHg (35.0-45.0); pH 7.442 (7.340-7.450)
[2017-07-27 09:04] LABS: PO2 140.5 mmHg (75.0-100.0)
--- NOTE | 2017-07-27 11:40 | NUR ---
PT UNABLE TO TOLERATE SEDATION VACATION THIS MORNING. PROPOFOL TURNED OFF FOR APPROXIMATELY 30 MINUTES. PT WAS ARROUSABLE AND NODDING HIS HEAD WHEN HIS ASKED QUESTIONS. PT HAS A VISIBLE TREMOR THROUGHOUT HIS BODY WHEN SEDATION IS OFF. CRRT RESUMED AT 1045 THIS MORNING. PT IS TOLERATING WELL AT THIS TIME. PT CONTINUES TO HAVE A VISIBLE TREMOR BUT NOT PROMINENT WHEN THE SEDATION WAS OFF. WILL CONTINUE TO MONITOR AND GIVE PRN ATIVAN NEEDED. POISON CONTROL HAS BEEN UPDATED ON HIS STATUS.
[2017-07-27 15:15] LABS: HEMATOCRIT 30.8 % (42.0-52.0); HEMOGLOBIN 10.6 gm/dL (14.0-18.0); MCH 33.3 pg (26.0-34.0); MCHC 34.4 g/dL (28.0-37.0); MCV 96.9 fL (80.0-100.0); MPV 7.7 fl. (7.2-11.1); RBC 3.17 mil/uL (4.50-6.00); WBC 5.9 thou/uL (4.0-11.0)
[2017-07-27 15:27] LABS: CALCIUM 7.8 mg/dL (8.5-10.1); CREATININE 0.8 mg/dL (0.6-1.3); MAGNESIUM 1.6 mg/dL (1.8-2.4); PHOSPHORUS* 2.6 mg/dL (2.5-4.9); POTASSIUM 3.6 mmol/L (3.5-5.1)
[2017-07-27 18:49] LABS: HEMATOCRIT 29.5 % (42.0-52.0); HEMOGLOBIN 10.2 gm/dL (14.0-18.0); MCH 33.7 pg (26.0-34.0); MCHC 34.6 g/dL (28.0-37.0); MCV 97.4 fL (80.0-100.0); MPV 7.7 fl. (7.2-11.1); RBC 3.03 mil/uL (4.50-6.00); RDW-CV 15.1 % (10.5-14.5); WBC 5.9 thou/uL (4.0-11.0)
--- NOTE | 2017-07-27 18:52 | NUR ---
PT REMAINS SEDATED, TREMORS ON AND OFF THROUGHOUT THE DAY. CRRT RUNNING SUCCESSFULLY AT THIS POINT AND IS SET TO STOP AT 2300. VSS. ASSESSMENT CHARTED. WILL CONTINUE TO MONITOR.
[2017-07-27 19:22] LABS: CALCIUM 7.6 mg/dL (8.5-10.1); CREATININE 0.8 mg/dL (0.6-1.3); MAGNESIUM 2.2 mg/dL (1.8-2.4); PHOSPHORUS* 2.4 mg/dL (2.5-4.9); POTASSIUM 3.6 mmol/L (3.5-5.1)
--- NOTE | 2017-07-27 20:00 | NUR ---
CRRT CLOTTED OFF. RETURNED BLOOD. CALLED DR REYES. NO ORDERS RECIEVED.
[2017-07-27 23:42] LABS: HEMATOCRIT 31.1 % (42.0-52.0); HEMOGLOBIN 10.8 gm/dL (14.0-18.0); MCH 33.7 pg (26.0-34.0); MCHC 34.8 g/dL (28.0-37.0); MCV 96.9 fL (80.0-100.0); MPV 7.6 fl. (7.2-11.1); RBC 3.2 mil/uL (4.50-6.00); WBC 6.4 thou/uL (4.0-11.0)
[2017-07-27 23:53] LABS: CALCIUM 7.6 mg/dL (8.5-10.1); CREATININE 0.9 mg/dL (0.6-1.3); MAGNESIUM 1.8 mg/dL (1.8-2.4); PHOSPHORUS* 2.7 mg/dL (2.5-4.9); POTASSIUM 3.8 mmol/L (3.5-5.1)
[2017-07-28] VITALS (14 sets, daily range): BP systolic 105–158; BP diastolic 47–73
[2017-07-28 05:00] LABS: ALBUMIN 2.3 g/dL (3.4-5.0); CALCIUM 7.5 mg/dL (8.5-10.1); CREATININE 0.9 mg/dL (0.6-1.3); POTASSIUM 3.6 mmol/L (3.5-5.1); TOTAL BILIRUBIN 0.3 mg/dL (<0.1-1.0); TOTAL PROTEIN 4.6 g/dL (6.4-8.2)
[2017-07-28 06:05] LABS: BE 1.8 mmol/L (-2 to +3); HCO3 26.3 mmol/L (22.0-26.0); PCO2 40.6 mmHg (35.0-45.0); PO2 105.6 mmHg (75.0-100.0); pH 7.429 (7.340-7.450)
--- NOTE | 2017-07-28 16:58 | EKG ---
[place] [address] ELECTROCARDIOGRAM REPORT Name: DESTINY MENDES Room: [address] ADM IN M.R.#: [id number] Admission: 07/24/17 Attend Phys: Pelon German MD Discharge: Date of : 48 Report #: [id number] THIS REPORT FOR: //name// [facility] Test Date: 2017-07-28 Test Time: 08:17:21 Pat Name: DESTINY MENDES Department: Room: [address] Gender: M Independent Contractor: EDUARDO : 1950 Requested By: Torito Rizzo Order Number: [id number] Rosibel MD: Torito Rizzo Measurements Intervals [place] Rate: 66 P: 30 SC: 189 QRS: -2 QRSD: 122 T: 174 QT: 454 QTc: 476 Interpretive Statements Sinus rhythm with pac's nonspecific t wave changes Compared to ECG 07/26/2017 12:05:00 Sinus pause or arrest no longer present Electronically Signed On 07-28-2017 16:58:09 CDT by Torito Rizzo [email or web address] <ELECTRONICALLY SIGNED> By: Torito Rizzo MD, [facility] 07/28/17 4508 6 6 Torito Rizzo MD, [facility] /EPI
[2017-07-28 17:47] LABS: BE -0.3 mmol/L (-2 to +3); HCO3 26.1 mmol/L (22.0-26.0); PO2 107.5 mmHg (75.0-100.0); pH 7.328 (7.340-7.450)
[2017-07-28 17:48] LABS: PCO2 50.8 mmHg (35.0-45.0)
--- NOTE | 2017-07-28 18:00 | NUR ---
PATIENT TOLERATED BEING OFF SEDATION ALL DAY. PT IS ALERT AND FOLLOWS COMMANDS. PT REPORTED PAIN BY NOD IN HIS ABDOMINAL AREA. 0G PUTTING OUT DARK BROWN BLOOD TINGED OUTPUT. Q2H TURNS. ASSESSMENT CHARTED. VSS THROUGHOUT THE DAY. DIALYSIS CATHETER REMOVED.
[2017-07-28 18:53] LABS: HEMATOCRIT 29.6 % (42.0-52.0)
[2017-07-29] VITALS (12 sets, daily range): BP systolic 140–164; BP diastolic 61–86
--- NOTE | 2017-07-29 01:24 | CON ---
[address] [address] CONSULTATION Name: DESTINY BOYCE Room: [address] ADM IN M.R.#: [id number] Admission: 07/24/17 Attend Phys: Pelon German MD Discharge: Date of : 49 Report #: [id number] THIS REPORT FOR: //name// CC: FAM unknown EDINSON DAVIES Pelon German DATE OF SERVICE: 07/28/2017 CONSULTATION: Infectious diseases. HISTORY OF PRESENT ILLNESS: Mr Boyce is a 67-year-old white male who was admitted to [facility] on 07/24/2017. The patient was apparently found down very delirious, surrounded by empty pill bottles for lithium, benzodiazepine, antidepressants, and thyroid. All the bottles were emptied. The patient was brought to the ER, was found to be very delirious and obtunded and was felt to be unable to protect his airway. I believe he was intubated prophylactically. He has remained on the ventilator since then. His radiograph developed infiltrates in the left hilum and right lower lobe regions. Infectious Disease consultation was requested to assist with possible aspiration pneumonia management. PAST MEDICAL HISTORY: Significant for severe bipolar disease associated with anxiety and panic. Neurologist documented at least 3 prior suicide attempts in the past. The labeled on the pill bottles are described in previous notes. It is not known how many pills were in the bottle. It is notable that the lithium level dino from 1.6 on the ER to 4.2 the following day despite of being on hemodialysis. OTHER PAST HISTORY: Includes diabetes, hypothyroidism, congestive heart failure, atrial fibrillation, sleep apnea, obesity. ALLERGIES: The patient has no medication allergy. PAST SURGICAL HISTORY: Includes cholecystectomy and bariatric surgery as well as knee surgery. MEDICATION RECONCILIATION: The patient's current medication include vancomycin 1 gram q. 8 hours, pantoprazole 40 mg q. 5 hours, midazolam 2-4 mg IV q. 1 hour p.r.n., levofloxacin 500 mg IV daily, banana bag with thiamine and folate, IV lorazepam 1 mg q. 1 hour p.r.n. IV, midazolam 2 mg q. 2 hours IV p.r.n., glucagon glucose as needed, DuoNeb 3 mL inhaler every 4 hours, levothyroxine 0.05 mg daily, propofol titrated as needed, norepinephrine p.r.n. hypotension, enoxaparin 40 mg daily, supplementary phosphorus sodium magnesium, potassium, [place] [address] CONSULTATION Name: DESTINY BOYCE Room: [address] IN [facility]#: [id number] Admission: 07/24/17 Attend Phys: Pelon German MD Discharge: Date of : 48 Report #: [id number] SOCIAL HISTORY: Shows the patient is . 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 He did smoke in the past, but quit about a year ago. The chart notes, alcohol consumption as about 1 bottle (size unspecified) [place] daily. No history of illegal drugs. REVIEW OF SYSTEMS: Unavailable as the patient is sedated on a ventilator. He does respond to some questions and denies any discomfort or dyspnea except what would be expected from being intubated. PHYSICAL EXAMINATION: GENERAL: The patient appears his stated age, awake, partially awake on the ventilator, comfortable, not in distress. VITAL SIGNS: Show a maximum temperature 99.5. Blood pressure has been stable without pressors recently. SKIN: Shows no rash, lesion or exanthem. ENT: Sebaceous negative. Orogastric and oral endotracheal tubes are in position. There are moderate tannish secretions from the endotracheal tube. There is dark brown material coming from the orogastric tube. CARDIOVASCULAR: Heart sounds are normal. LUNGS: Clear to anterior auscultation. ABDOMEN: Belly is obese, soft, not tender. Bowel sounds present. No mass, no organomegaly. EXTREMITIES: Show edema both hands, but the patient has soft restraints, which may be the cause of this. The patient does not have any pedal edema. LABORATORY STUDIES: White count is 6.4, hemoglobin has gone from 14-10.8 in the hospitalization, platelets 66,000. Electrolytes: BUN and creatinine are normal. Liver function tests are normal. [place] was 1.6 on admission, up to 4.2 the next day and back down to 1.7 on 07/26/2017, and it is less than 1 today. TSH was 3.0 on admission and 0.33 the following day. Urine drug screen was negative. Alcohol level is 118 mg/dL. Chest x-ray as described below. No cultures are available. IMPRESSION: Infiltrate after intentional drug overdose requiring airway protection with intubation. PLAN: At this time, would like to obtain sputum for culture from the endotracheal tube. It appears the patient is probably close to being extubatable. We want to use this opportunity to obtain sputum while we can. I would like to deescalate the antibiotics to Mefoxin. This would cover the usual pulmonary pathogens as well as anaerobes and oral abigail from aspiration. If the culture shows resistant abigail, we can readjust. We can stop the vancomycin levels and Levaquin. The patient is diabetic. I would like to check a hemoglobin A1c. We may need to watch for delayed effects of the thyroid hormone. It appears that the acute intoxication from lithium and antidepressants, with the potential for cardiac damage, arrhythmias, renal [address] [address] CONSULTATION Name: DESTINY BOYCE Room: [address] ADM IN M.R.#: [id number] Admission: 07/24/17 Attend Phys: Pelon German MD Discharge: Date of : 48 Report #: [id number] failure, etc, appears to be behind us. Going forward, the patient will need to deal with his depression and substance use. I appreciate the opportunity of input in the care of this complex patient. I will be happy to cover until Dr. Cheng returns tomorrow. Thank you for this consultation. <ELECTRONICALLY SIGNED> By: Leif Roper MD 07/29/17 0124 1239 [id number] Roper MD /nt
[2017-07-29 05:37] LABS: ABSOLUTE BASOPHILS 0.1 thou/uL (0.0-0.2); ABSOLUTE EOSINOPHILS 0.2 thou/uL (0.0-0.7); ABSOLUTE LYMPHOCYTES 0.8 thou/uL (0.8-5.3); ABSOLUTE MONOCYTES 0.5 thou/uL (0.0-1.2); ABSOLUTE NEUTROPHILS 4.4 thou/uL (1.6-8.1); BASOPHILS 0.9 %; HEMATOCRIT 32.1 % (42.0-52.0); HEMOGLOBIN 10.8 gm/dL (14.0-18.0); LYMPHOCYTES 13.7 %; MCH 32.9 pg (26.0-34.0); MCHC 33.8 g/dL (28.0-37.0); MCV 97.5 fL (80.0-100.0); MONOCYTES 8.9 %; NUCLEATED RBCS 0 /100WBC; PLATELET COUNT* 78 thou/uL (150-400); POLYS 72.5 %; RBC 3.29 mil/uL (4.50-6.00); RDW-CV 15.3 % (10.5-14.5); WBC 6.1 thou/uL (4.0-11.0)
[2017-07-29 05:44] LABS: ALBUMIN 2.5 g/dL (3.4-5.0); CALCIUM 7.9 mg/dL (8.5-10.1); MAGNESIUM 1.9 mg/dL (1.8-2.4); POTASSIUM 3.7 mmol/L (3.5-5.1); TOTAL BILIRUBIN 1.3 mg/dL (<0.1-1.0); TOTAL PROTEIN 5.2 g/dL (6.4-8.2)
--- NOTE | 2017-07-29 06:31 | NUR ---
PROGRESSION TOWARDS GOALS. ASSESSMENT AND VS OBTAINED, SEE CHARTING. MANAGER ASSESSMENT ON AND TRACING SB. PT REMAINS ON VENT WITH ORDERED SETTINGS. SEDATION WAS STOPPED YESTERDAY AND THROUGH OUT THE NIGHT PT RECIEVED 2 DOSES OF DILAUDID AND VERSED. PT FOLLOWS ALL COMMANDS AND CAN ANSWER YOU BACK WITH SHAKING HIS HEAD.
--- NOTE | 2017-07-29 08:26 | CON ---
[address] [address] CONSULTATION Name: VAUGHNDESTINYMAIRA DONNELLY Room: [address] ADM IN M.R.#: [id number] Admission: 07/24/17 Attend Phys: Pelon German MD Discharge: Date of : 49 Report #: [id number] THIS REPORT FOR: //name// CC: FAM unknown EDINSON DAVIES Pelon German DATE OF SERVICE: 07/26/2017 HISTORY OF PRESENT ILLNESS: The patient is a 67-year-old white male who I was asked to see in the hospital today after he was felt to have evidence of lithium overdose. The patient has a previous history of paroxysmal atrial fibrillation. He was apparently cardioverted back in the at [facility]. The history is obtained from some old records as well as the . He apparently has never been anticoagulated. He also has a history of orthostatic hypotension, has been on midodrine in the past as well as [place]. The patient was last seen in Cardiology Clinic in 08/2016 by my nurse practitioner, Aleah Hui. At that time, his blood pressure appeared adequate. He actually had a previous heart catheterization in 2015 that showed only 50% stenosed circumflex and ejection fraction was normal. The patient was actually just admitted here to [facility] a few weeks ago. He was discharged on 07/05/2017 after a syncopal spell. He was noted to be bradycardic, felt to have lithium toxicity and was orthostatic. The patient was seen by Cardiology during that hospitalization. The patient is not very active according to his . He is not working at this time. The patient apparently was discharged last time with an event recorder that I do not have the results of. He does have a history of falls. Recently, the patient has been depressed. The apparently got home from work 2 days ago and found him lying on the floor unresponsive with multiple empty pill bottles nearby. The patient was brought to the Emergency Room and intubated. He was started on hemodialysis. I was asked to see him for further evaluation and treatment. She denies any history of chest pain, shortness of breath, palpitations. PAST MEDICAL HISTORY: Significant for cervical spine fusion. He had a previous tracheostomy in 2000 when he was on the ventilator for a month. He has had tonsillectomy, knee surgery. He has a history of obesity and had previous bariatric surgery. He has had a cholecystectomy, glucose intolerance. MEDICATIONS: On admission consists of aspirin, Xanax, Effexor, Seroquel, midodrine, lithium, Synthroid. ALLERGIES: He has no drug allergies. FAMILY HISTORY: Father of cancer. SOCIAL HISTORY: He is . He and his live in 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 He quit smoking years ago. He does drink alcohol almost every day. REVIEW OF SYSTEMS: He has had no history of stroke. He does have a history of asthma. No history peptic ulcer disease. Has had pancreatitis in the past. No liver disease, no kidney disease, no cancer. PHYSICAL EXAMINATION: GENERAL: Revealed a middle-aged male lying in bed. He was on ventilator on a propofol infusion. VITAL SIGNS: He has a blood pressure 120/60, pulse is 80. HEENT: He was anicteric. Mucous members moist. CHEST: Clear to auscultation. CARDIAC: Regular rate and rhythm. ABDOMEN: Obese, soft, nontender. EXTREMITIES: Had trace edema. SKIN: Cool and dry. NEUROLOGIC: Unresponsive to voice. RADIOLOGICAL DATA: His ECG on admission 2 days ago showed sinus bradycardia, nonspecific intraventricular conduction defect. ECG today shows sinus rhythm, occasional PAC, nonspecific intraventricular conduction defect, but there did not appear to be any significant QT prolongation. His workup, he had an echocardiogram done earlier today that showed left ventricular hypertrophy, ejection fraction 60%. No pericardial effusion. His chest x-ray on admission showed cardiomegaly, mild vascular congestion. CT scan of the head done without contrast showed mild atrophy. LABORATORY DATA: Sodium 140, creatinine 0.9, albumin 2.7. TSH 3.0, T4 1.3. White blood cell count 6.8, hemoglobin 11.7. IMPRESSION AND RECOMMENDATIONS: 1. [place] overdose. The patient currently being hemodialyzed. There does not appear to be any significant QT prolongation at this time. 2. Previous history of atrial fibrillation. The patient currently in sinus rhythm. 3. History of orthostatic hypotension. The patient has been admitted in the past. 4. Alcohol abuse. 5. Glucose intolerance. 6. History of obesity. The patient had previous bariatric surgery. 7. [place] [address] CONSULTATION Name: DESTINY MENDES Room: [address] IN M.R.#: [id number] Admission: 07/24/17 Attend Phys: Pelon German MD Discharge: Date of : 48 Report #: [id number] 8. Manic depressive illness. 9. Drug overdose. <ELECTRONICALLY SIGNED> By: Torito Rizzo MD, FACC 07/29/17 0826 1454 [id number] Rizzo MD, FACC /nt
[2017-07-29 08:39] LABS: BE 1.9 mmol/L (-2 to +3); HCO3 27.9 mmol/L (22.0-26.0); PO2 84.4 mmHg (75.0-100.0); pH 7.364 (7.340-7.450)
[2017-07-29 12:23] LABS: PROTIME 10.2 Seconds (9.20-11.50)
--- NOTE | 2017-07-29 17:03 | NUR ---
PT EXTUBATED AT 1545. PT APPEARS TO BE TOLERATING WELL. CLEAR LIQUID DIET ORDERED PER GI WHEN ABLE TO TOLERATE. 1:1 SITTER INITIATED FOR SUICIDE PRECAUTIONS, ROOM HAS BEEN ACCOMODATED FOR SI PATIENT. NO COMPLAINTS OF PAIN AT THIS TIME. ASSESSMENT CHARTED. VSS. WILL CONTINUE TO MONITOR.
[2017-07-29 17:13] LABS: GLYCOHEMOGLOBIN (HGB A1C) 4.6 % (4.8-5.6)
--- NOTE | 2017-07-29 20:00 | NUR ---
EXPAINED TO PT THAT WE NEED TO TURN EVERY 2 HRS. PT STATED THAT HE DIDN'T WANT TO BE TURNED. AT THAT TIME PT WAS EDUCATED ON WHY WE TURN (PRESSURE ULCERS). PT STILL DECLINES.
[2017-07-30] VITALS (9 sets, daily range): BP systolic 140–178; BP diastolic 60–86
--- NOTE | 2017-07-30 05:03 | NUR ---
PT C/O HAVING LOWER ABD PAIN ALL THE WAY ACROSS WITH SOME REBOUNDING. PT ALSO STATES THAT HE'S NAUSEATED TO. TALKED TO DR FRYE AND ORDERS WERE RECIEVED AND CARRIED OUT.
--- NOTE | 2017-07-30 05:21 | NUR ---
PROGRESSION TOWARDS GOALS. ASSESSMENT AND VS OBTAINED, SEE CHARTING. MEDICAL RECEPTION ON AND TRACING SR. PT WAS AWAKE MOST OF THE NIGHT. HE STATED THAT HE DIDN'T SLEEP A LOT BECAUSE HE WAS THINKING ABOUT A LOT OF THINGS. HE DID C/O HAVING LOWER ABD PAIN AND NAUSEA, SEE NOTE. EXPLAINED TO PT THAT HE WILL GET STRONGER THE DAYS GO BY BUT HE NEEDED TO GET HELP MENTALLY TO. HE SAID I KNOW.
[2017-07-30 05:33] LABS: HEMATOCRIT 30.8 % (42.0-52.0); HEMOGLOBIN 10.6 gm/dL (14.0-18.0); MCHC 34.4 g/dL (28.0-37.0); MCV 95.9 fL (80.0-100.0); MPV 7.8 fl. (7.2-11.1); RBC 3.21 mil/uL (4.50-6.00); RDW-CV 14.3 % (10.5-14.5); WBC 5.6 thou/uL (4.0-11.0)
[2017-07-30 05:43] LABS: CALCIUM 8.1 mg/dL (8.5-10.1); MAGNESIUM 1.9 mg/dL (1.8-2.4); POTASSIUM 3.5 mmol/L (3.5-5.1)
[2017-07-30 07:40] LABS: HEPATITIS B SURFACE AG Negative (Negative)
--- NOTE | 2017-07-30 08:00 | NUR ---
PT PASSED STROKE SWALLOW EVAL, PT DOES CLEAR THROAT ALOT PRIMARY ON UNIT, PRIMARY MADE AWARE ST CONSULTED. PRIMARY OKAY WITH CONT CLEAR LIQUID DIET.ORDERS NOTED FOR CHANGE IS STATUS TO M/S TELEMETRY.
--- NOTE | 2017-07-30 15:17 | S ---
[address] [address] SURGICAL PATH RPT PROCEDURE Name: SHERIF BOYCE Room: [address] ADM IN M.R.#: [id number] Admission: 07/24/17 Date of : 48 Discharge: Report #: [id number] Path Case #: [id number] PATHOLOGY REPORT COLLECTION DATE: 07/29/2017 RECEIVED DATE: 07/29/2017 SUBMITTING PHYS: Dr. Meenakshi Robertson OTHER PHYS: Dr. Pelon Rodriguez NP SPECIMEN(S) RECEIVED: A.Gastric bx * * * * * * * * * * * * FINAL DIAGNOSIS: Gastric biopsy, "gastric": - Chronic reactive gastropathy with mild foveolar hyperplasia. - There is no evidence of acute cryptitis, granulomas, adenomatous change or malignancy. - The immunoperoxidase stains for Helicobacter pylori is negative. (SHA:mml; 07/30/2017) PATHOLOGIST: Luis Johnson M.D. REPORT ELECTRONICALLY SIGNED BY: Luis Johnson M.D. DATE/TIME: 07/30/2017 15:16 * * * * * * * * * * * * GROSS PATHOLOGY: Received in formalin labeled "Sherif Boyce, gastric biopsies, rule out gastritis," are 4 segments of kang soft tissue measuring 1.8 x 0.8 x 0.3 cm in aggregate dimensions and ranging from 0.3 to 0.7 cm in maximum dimension. The specimen is submitted entirely in cassette A1. (TSD; 07/29/2017) CLINICAL HISTORY: None provided INITIAL CPT CODE(S): A; 13321, 18984 Professional services performed by [facility] at [facility], [address] [place], [place] [address], [place] [address]. Technical services performed by [facility] at [address] [place] [address], [facility] [address] [address]. [place] [address] SURGICAL PATH RPT PROCEDURE Name: SHERIF BOYCE Room: [address] IN ..#: [id number] Admission: 07/24/17 Date of : 48 Discharge: Report #: [id number] Path Case #: [id number] [facility] [address] [address] PHONE: [phone] DIRECTOR: Mic Lowe M.D. * * * END OF REPORT * * *
--- NOTE | 2017-07-30 18:42 | NUR ---
PT IS NO LONGER A [address] MICHEL, WHO IS WANTING PT TO TRANSFER TO [facility] IN AM WHEN MEDICAL CLEAR.PT NOT EATING VERY WELL WAS ABLE TO EAT 3 BITES OF FOOD OFF SUPPER TRAY. PT DOES HAVE A HISTORY OF GASTRIC BYPASS. AT THIS TIME PT IS TO BE TRANSFERED TO A ROOM 3 WEST.IVF OF D5W REMAINS INFUSING AT 50 ML/HR TIMES 1 BAG.PT REMANS ON R/A WITH SATS MID TO UPPER 90'S. PT HAS NOT URINATED SINCE F/C REMOVED AT APPX 0930. WILL HAVE PT TRY ANND URINATE BEFORE TRANSFERING. PT IS PROGRESSING TOWARDS GOALS.PT REMANS DENYING ANY PLANS TO HURT SELF.
[2017-07-31 03:25] VITALS: BP 139/59
--- NOTE | 2017-07-31 05:52 | NUR ---
PATIENT WAS TRANSFERRED UP HERE FROM ICU AT BEGINNING OF THE SHIFT. PATIENT HAS SLEPT MOST OF THE SHIFT. IV FLUIDS CONTINUE TO INFUSE AT 50 ML/HR. PATIENT HAS BEEN VOIDING ADEQUATE AMOUNTS OF URINE PER URINAL SINCE LOVE WAS REMOVED. PATIENT WAS GIVEN TYLENOL ONCE FOR A HEADACHE. WILL CONTINUE TO MONITOR.
[2017-07-31 06:27] LABS: HEMATOCRIT 27.8 % (42.0-52.0); HEMOGLOBIN 9.6 gm/dL (14.0-18.0); MCHC 34.5 g/dL (28.0-37.0); MCV 95.4 fL (80.0-100.0); MPV 7.8 fl. (7.2-11.1); RBC 2.92 mil/uL (4.50-6.00); RDW-CV 13.8 % (10.5-14.5); WBC 4.7 thou/uL (4.0-11.0)
[2017-07-31 06:32] LABS: CALCIUM 8.1 mg/dL (8.5-10.1); MAGNESIUM 1.8 mg/dL (1.8-2.4); POTASSIUM 3.5 mmol/L (3.5-5.1)
[2017-07-31 08:05] VITALS: BP 149/63
--- NOTE | 2017-07-31 10:00 | NUR ---
PT UP TO CHAIR WITH STANDBY ASSIST AFTER MUCH ENCOURAGEMENT.
--- NOTE | 2017-07-31 11:17 | NUR ---
PT C/O SHAKINESS AND FEELING 'UNEASY'. PT REQUESTED XANAX AND REPORTS RELIEF ON REASSESSMENT. PT CONTINUES TO SIT UP IN CHAIR WITHOUT COMPLAINT.
[2017-07-31 12:33] VITALS: BP 145/64
--- NOTE | 2017-07-31 13:34 | NUR ---
CM SPOKE TO DR ASTORGA WHO INFORMS THAT THE PATIENT IS MEDICALLY STABLE AND IS OPEN TO INPATIENT PSYCH. CM SPOKE TO THE PATIENT TO DISCUSS DISCHARGE PLANNING NEEDS, AND INPATIENT PSYCH. PATIENT INFORMS THAT HE DOES BELIEVE THAT HE NEEDS INPATIENT PSYCH. CM CONTACTED [facility] TO INFORM OF THE REFERRAL, AND FAXED PATIENT'S FACESHEET, H&P, ER NOTES, LABS, AND MED LIST. CM WILL REMAIN AVIALABLE TO ASSIST AND FOLLOW NEEDED.
[2017-07-31 13:59] VITALS: BP 145/64
[2017-07-31 16:50] VITALS: BP 176/72
--- NOTE | 2017-07-31 17:27 | NUR ---
PT C/O PERIODS OF ANXIOUSNESS AND NAUSEA, RESOLVED WITH MEDICATIONS ORDERED. FAMILY IN TO VISIT TODAY. PT UP TO CHAIR FOR 3 HOURS. PT ABLE TO MAKE NEEDS KNOWN, CALL LIGHT IN REACH
[2017-08-01 00:08] VITALS: BP 172/82
[2017-08-01 04:04] VITALS: BP 177/80
--- NOTE | 2017-08-01 05:25 | NUR ---
PATIENT SLEPT PART OF THE NIGHT. PATIENT WAS GIVEN NAUSEA MEDICINE ONCE THIS SHIFT. PATIENT REMAINS SINUS CATARINA ON THE MONITOR. PATIENT IS POSSIBLY GOING TO [facility] TODAY IF BED BECOMES AVAILABLE. WILL CONTINUE TO MONITOR.
[2017-08-01 08:25] VITALS: BP 168/71
--- NOTE | 2017-08-01 11:24 | NUR ---
Following for d/c planning needs. Reviewed chart and spoke with nurse, physician, pt and spouse. Spouse said pt has been hospitalized at [facility], [address] [place] [address] and [facility] in the past. [facility] does not have any beds available today. [facility] [place] has no beds available today. [facility] has no beds available today. Spouse is agreeable with going outside the [facility] area to find placement. Called Karthik and left message. Called [facility]. Will remain available to assist as needed.
[2017-08-01 16:36] VITALS: BP 171/73
--- NOTE | 2017-08-01 18:18 | NUR ---
PT TRANSFERRED TO [facility] VIA EMS. PT GIVEN XANAX PER ORDERS. TOOK BELONGINGS.
--- NOTE | 2017-08-10 13:26 | CON ---
[address] [address] CONSULTATION Name: VAUGHNDESTINYMAIRA DONNELLY Room: [address] IN M.R.#: [id number] Admission: 07/24/17 Attend Phys: Pelon German MD Discharge: 08/01/17 Date of : 48 Report #: [id number] THIS REPORT FOR: //name// CC: EDINSON German REASON FOR CONSULTATION: [place] overdose. HISTORY OF PRESENT ILLNESS: A 67-year-old gentleman with a history of bipolar disorder who was admitted with altered mental status. He was found down with empty pill bottles. His does not know exactly how many of the lithium he took, but says that he took "a lot." He did this as a suicide attempt. He was intubated, also had very low blood pressures and was started on Levophed. [place] level was initially 1. It climbed to 4.2. A temporary dialysis catheter was placed and the patient tolerated a 3-1/2 hour session of dialysis. It was cut short because of clotting issues. He had salicylate and Tylenol levels, which were unremarkable. The family is present at the bedside and helped provide some of the history. REVIEW OF SYSTEMS: Constitutional, psych, heme, eyes, ENT, respiratory, cardiac, GI, , endocrine, all negative except as documented above and as best as can be ascertained. PAST MEDICAL HISTORY: Diabetes, bipolar disorder, history of bariatric surgery, history of knee surgery, obstructive sleep apnea. SOCIAL HISTORY: Positive for tobacco and alcohol. FAMILY HISTORY: Not pertinent in this 67-year-old gentleman. PHYSICAL EXAMINATION: VITAL SIGNS: Blood pressure 119/68, pulse 53, respirations 16, temperature 37.0. GENERAL: No acute distress. EYES: Closed. EARS: Externally normal. CARDIOVASCULAR: Regular rate. LUNGS: Diminished. ABDOMEN: Soft. LYMPHATICS: No significant pitting edema. NEUROLOGIC: Intubated and sedated. LABORATORY DATA: White cell count 8.9, hemoglobin 13.5, platelets 150. Sodium 140, potassium 4.2, chloride 109, bicarbonate 27, BUN 12, creatinine 1.1, glucose 56, calcium 7.4, magnesium 1.9. [place] level was 4.2 at 3:30 [place] [address] CONSULTATION Name: DESTINY MENDES ANDRZEJ Room: [address]#: [id number] Admission: 07/24/17 Attend Phys: Pelon German MD Discharge: 08/01/17 Date of : 48 Report #: [id number] ASSESSMENT: 1. [place] overdose, intentional, on lithium for 3 years. Admission lithium level was 1, jumped up to 4.2. Salicylate and Tylenol levels were normal. 2. Suicide attempt. 3. Bipolar disorder. 4. Hypotension, on Levophed. PLAN: 1. The patient did dialyze today. Continue IV fluids. 2. Check lithium level now and we will repeat the lithium levels every 6 hours x 2 more to determine if any further dialysis is needed. We will keep temporary dialysis catheter in for the time being. Electrolyte panel will be repeated as well. Labs will be checked again in the a.m. He has good urine output. We will follow closely. Thank you for requesting my opinion in the care and management of this patient. <ELECTRONICALLY SIGNED> By: Robert Diaz MD 08/10/17 1326 1630 [id number] Diaz MD /nt
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
--- NOTE | 2017-08-12 15:05 | CON ---
[address] [address] CONSULTATION Name: DESTINY MENDES Room: [address] IN M.R.#: [id number] Admission: 07/24/17 Attend Phys: Pelon German MD Discharge: 08/01/17 Date of : 48 Report #: [id number] THIS REPORT FOR: //name// CC: FAM unknown EDINSON DAVIES Pelon German DATE OF SERVICE: 07/29/2017 ADDENDUM TO CONSULT #[id number] I have personally seen and examined the patient and reviewed labs and imaging studies. The patient with history of alcohol abuse and recent drug overdose who is intubated and sedated. The patient also has long history of NSAIDs. There is a report of upper GI bleed and coffee-ground material per NG tube. We will go ahead and perform an upper endoscopy and make further recommendation. Meanwhile, we will continue the Protonix and Carafate as before. The patient also has elevated liver enzymes. This may be related to chronic alcoholism and recent drug overdose. We will continue monitoring them and obtain abdominal ultrasound. <ELECTRONICALLY SIGNED> By: Meenakshi Robertson MD 08/12/17 1505 1423 1651Meenakshi Robertson MD /nt
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
[2017-09-13] MEDS ORDERED: QUETIAPINE FUM100 MG PO (10:44)
== END 2017-08-01 18:18 | DRG 917 ==
LOC: M.ERS 18:08 → M.TBA-ER 19:03 → M.ICU 19:03 → M.3W 07-30 19:42
PROVIDERS: Emergency Medicine Emergency Medical Services; Family Medicine; Internal Medicine; Internal Medicine Critical Care Medicine; Internal Medicine Hematology & Oncology; Internal Medicine Infectious Disease; Internal Medicine Nephrology; Internal Medicine Pulmonary Disease; Nurse Practitioner Adult Health; ADMIT Internal Medicine
PROC: 5A1955Z Respiratory Ventilation, Greater than 96 Consecutive Hours (ICD-10-PCS; principal; 2017-07-24)
PROC: 0BH17EZ Insertion of Endotracheal Airway into Trachea, Via Natural or Artificial Opening (ICD-10-PCS; principal; 2017-07-24)
PROC: 5A1D70Z Performance of Urinary Filtration, Intermittent, Less than 6 Hours Per Day (ICD-10-PCS; 2017-07-25)
PROC: 02HV33Z Insertion of Infusion Device into Superior Vena Cava, Percutaneous Approach (ICD-10-PCS; 2017-07-28)
PROC: B5181ZA Fluoroscopy of Superior Vena Cava using Low Osmolar Contrast, Guidance (ICD-10-PCS; 2017-07-28)
PROC: B548ZZA Ultrasonography of Superior Vena Cava, Guidance (ICD-10-PCS; 2017-07-28)
PROC: 0DB68ZX Excision of Stomach, Via Natural or Artificial Opening Endoscopic, Diagnostic (ICD-10-PCS; 2017-07-29)
DX: T42.4X2A Poisoning by benzodiazepines, intentional self-harm, initial encounter (principal); G92 Toxic encephalopathy; J96.01 Acute respiratory failure with hypoxia; K25.4 Chronic or unspecified gastric ulcer with hemorrhage; J18.9 Pneumonia, unspecified organism; D62 Acute posthemorrhagic anemia; K92.0 Hematemesis; I50.9 Heart failure, unspecified; K21.9 Gastro-esophageal reflux disease without esophagitis; F31.9 Bipolar disorder, unspecified; E11.9 Type 2 diabetes mellitus without complications; G47.33 Obstructive sleep apnea (adult) (pediatric); F41.9 Anxiety disorder, unspecified; T56.892A Toxic effect of other metals, intentional self-harm, initial encounter; I95.9 Hypotension, unspecified; D69.6 Thrombocytopenia, unspecified; E83.42 Hypomagnesemia; T68.XXXA Hypothermia, initial encounter; K76.0 Fatty (change of) liver, not elsewhere classified; R16.1 Splenomegaly, not elsewhere classified; F10.10 Alcohol abuse, uncomplicated; K31.9 Disease of stomach and duodenum, unspecified; E83.51 Hypocalcemia; R25.1 Tremor, unspecified; F10.129 Alcohol abuse with intoxication, unspecified; Z96.659 Presence of unspecified artificial knee joint; K44.9 Diaphragmatic hernia without obstruction or gangrene; Z93.1 Gastrostomy status; Z90.49 Acquired absence of other specified parts of digestive tract; Y92.89 Other specified places as the place of occurrence of the external cause; Z87.891 Personal history of nicotine dependence; Z80.8 Family history of malignant neoplasm of other organs or systems; Z79.1 Long term (current) use of non-steroidal anti-inflammatories (NSAID); Z80.3 Family history of malignant neoplasm of breast; Z28.21 Immunization not carried out because of patient refusal

== ENCOUNTER 2017-08-17 15:04 | Emergency (ER) | payer OTHER, MEDICARE ==
[~2017-08-17] VITALS: Ht 180.3 cm; Wt 115.7 kg
[~2017-08-17 15:04] MED LIST changes: +LITHIUM CARBON300 M3 PO
[2017-08-17] MEDS ORDERED: LISINOPRIL5 MG PO (15:31)
[2017-08-17] MEDS ORDERED: ZYRTEC10 M4 PO (15:32)
[2017-08-17] MEDS ORDERED: CARAFATE 1 GM TA1 G1 PO (15:32)
[2017-08-17] MEDS ORDERED: HYDROXYZINE HCL25 M1 PO (15:33)
[2017-08-17] MEDS ORDERED: ZANTAC 150MG T150 MG PO (15:34)
[2017-08-17] MEDS ORDERED: AMOXICILLIN 50500 MG PO (15:35)
[2017-08-17] MEDS ORDERED: PREDNISONE 1 MG1 M1 PO (15:36)
[2017-08-17 15:41] LABS: ABSOLUTE BASOPHILS 0.1 thou/uL (0.0-0.2); ABSOLUTE EOSINOPHILS 0.1 thou/uL (0.0-0.7); ABSOLUTE LYMPHOCYTES 1.6 thou/uL (0.8-5.3); ABSOLUTE MONOCYTES 0.8 thou/uL (0.0-1.2); ABSOLUTE NEUTROPHILS 6.3 thou/uL (1.6-8.1); BASOPHILS 0.9 %; EOSINOPHILS 1.3 %; HEMATOCRIT 36.6 % (42.0-52.0); HEMOGLOBIN 12.5 gm/dL (14.0-18.0); LYMPHOCYTES 18.3 %; MCH 31.3 pg (26.0-34.0); MCHC 34.1 g/dL (28.0-37.0); MCV 91.6 fL (80.0-100.0); MONOCYTES 8.7 %; MPV 6.8 fl. (7.2-11.1); NUCLEATED RBCS 0 /100WBC; PLATELET COUNT* 212 thou/uL (150-400); POLYS 70.8 %; RBC 3.99 mil/uL (4.50-6.00); WBC 8.9 thou/uL (4.0-11.0)
[2017-08-17 15:48] LABS: ANION GAP 8 mmol/L (7-16); APTT 23.3 Seconds (25.0-31.3); BUN 9 mg/dL (7-18); CALCIUM 9.1 mg/dL (8.5-10.1); CHLORIDE 103 mmol/L (98-107); CO2 27 mmol/L (21-32); CREATININE 1.3 mg/dL (0.6-1.3); GLUCOSE 91 mg/dL (70-99); POTASSIUM 4.3 mmol/L (3.5-5.1); SODIUM 138 mmol/L (136-145)
[2017-08-17 15:53] LABS: ALCOHOL < 10 mg/dL (<10)
[2017-08-17 15:59] LABS: ALBUMIN 3.6 g/dL (3.4-5.0); ALKALINE PHOSPHATASE 89 U/L (46-116); NT-PRO BRAIN NAT PEPTIDE 65 pg/mL (<300); SGOT 11 U/L (15-37); SGPT 19 U/L (30-65); TOTAL BILIRUBIN 0.3 mg/dL (<0.1-1.0); TOTAL PROTEIN 6.4 g/dL (6.4-8.2); TROPONIN-I LEVEL <0.06 ng/mL (<0.06)
[2017-08-17 16:00] LABS: LITHIUM < 0.2 mEq/L (0.6-1.2)
[2017-08-17 17:13] VITALS: BP 151/79
--- NOTE | 2017-08-18 14:57 | EKG ---
[place] [address] ELECTROCARDIOGRAM REPORT Name: DESTINY MENDES Room: [facility]#: [id number] Admission: 08/17/17 Attend Phys: Discharge: 08/17/17 Date of : 48 Report #: [id number] THIS REPORT FOR: //name// [facility] ED Test Date: 2017-08-17 Test Time: 15:30:00 Pat Name: DESTINY MENDES Department: Room: Gender: M Voltmeter Operator: Lloyd DURHAM : 1950 Requested By: Abelino Albert Order Number: [id number] MD: Denny Hodge Measurements Intervals [place] Rate: 62 P: 19 NM: 175 QRS: -24 QRSD: 118 T: 98 QT: 446 QTc: 453 Interpretive Statements Sinus rhythm Atrial premature complex Incomplete left bundle branch block Compared to ECG 07/28/2017 08:17:21 Atrial premature complex(es) now present Left bundle-branch block now present Electronically Signed On 08-18-2017 14:57:00 CDT by Denny Hodge [email or web address] <ELECTRONICALLY SIGNED> By: Denny Hodge MD, FAC 08/18/17 1457 1530 1530 Denny Hodge MD, [facility] /EPI
[2017-09-13] MEDS ORDERED: QUETIAPINE FUM100 MG PO (10:44)
== END 2017-08-17 17:13 | disposition home or self-care (01) ==
LOC: M.ERS 15:04
PROVIDERS: Family Medicine
DX: R51 Headache (principal); R11.10 Vomiting, unspecified; I50.9 Heart failure, unspecified; E11.9 Type 2 diabetes mellitus without complications; G47.33 Obstructive sleep apnea (adult) (pediatric); K21.9 Gastro-esophageal reflux disease without esophagitis; Z98.84 Bariatric surgery status

== ENCOUNTER 2017-08-30 15:10 | Inpatient (IN) | payer OTHER, MEDICARE ==
[~2017-08-30] VITALS: Ht 180.3 cm; Wt 112.5 kg
[~2017-08-30 15:10] MED LIST changes: +AMOXICILLIN 50500 MG PO; +CARAFATE 1 GM TA1 G1 PO; +HYDROXYZINE HCL25 M1 PO; +LISINOPRIL5 MG PO; +PREDNISONE 1 MG1 M1 PO; +ZANTAC 150MG T150 MG PO; +ZYRTEC10 M4 PO
[2017-08-30 15:18] VITALS: BP 70/41
[2017-08-30 15:37] LABS: ABSOLUTE BASOPHILS 0.1 thou/uL (0.0-0.2); ABSOLUTE EOSINOPHILS 0.2 thou/uL (0.0-0.7); ABSOLUTE LYMPHOCYTES 1.8 thou/uL (0.8-5.3); ABSOLUTE MONOCYTES 0.5 thou/uL (0.0-1.2); BASOPHILS 0.8 %; EOSINOPHILS 2.4 %; HEMATOCRIT 41.2 % (42.0-52.0); HEMOGLOBIN 13.8 gm/dL (14.0-18.0); LYMPHOCYTES 27.7 %; MCH 30.8 pg (26.0-34.0); MCHC 33.6 g/dL (28.0-37.0); MCV 91.4 fL (80.0-100.0); MONOCYTES 7.9 %; MPV 7.1 fl. (7.2-11.1); NUCLEATED RBCS 0 /100WBC; PLATELET COUNT* 160 thou/uL (150-400); POLYS 61.2 %; RDW-CV 14.5 % (10.5-14.5); WBC 6.5 thou/uL (4.0-11.0)
[2017-08-30 15:45] LABS: ANION GAP 10 mmol/L (7-16); BUN 7 mg/dL (7-18); CALCIUM 8.7 mg/dL (8.5-10.1); CHLORIDE 104 mmol/L (98-107); CO2 26 mmol/L (21-32); CREATININE 1.6 mg/dL (0.6-1.3); GLUCOSE 169 mg/dL (70-99); POTASSIUM 3.9 mmol/L (3.5-5.1); SODIUM 140 mmol/L (136-145)
[2017-08-30 15:47] LABS: APTT 23.6 Seconds (25.0-31.3); INR 1.1; PROTIME 10.3 Seconds (9.20-11.50)
[2017-08-30 15:51] LABS: URINE BILIRUBIN NEGATIVE (Negative); URINE BLOOD NEGATIVE (Negative); URINE CLARITY CLEAR; URINE COLOR YELLOW; URINE GLUCOSE-RANDOM NEGATIVE (Negative); URINE KETONES NEGATIVE (Negative); URINE LEUKOCYTES-REFLEX NEGATIVE (Negative); URINE NITRITE-REFLEX NEGATIVE (Negative); URINE PROTEIN NEGATIVE (Negative); URINE UROBILINOGEN 0.2 E.U./dl (0.2-1.0)
[2017-08-30 16:04] LABS: AMP/METHAMP Negative (Negative); BARBITURATES Negative (Negative); BENZODIAZEPINES POSITIVE (Negative); COCAINE Negative (Negative); METHADONE Negative (Negative); OPIATES Negative (Negative); PCP Negative (Negative); THC Negative (Negative)
[2017-08-30 16:05] LABS: ALBUMIN 3.7 g/dL (3.4-5.0); ALKALINE PHOSPHATASE 83 U/L (46-116); CK-MB MASS 0.9 ng/mL (<0.5-3.6); NT-PRO BRAIN NAT PEPTIDE 132 pg/mL (<300); SGOT 17 U/L (15-37); SGPT 23 U/L (30-65); TOTAL BILIRUBIN 0.3 mg/dL (<0.1-1.0); TOTAL PROTEIN 6.4 g/dL (6.4-8.2); TROPONIN-I LEVEL <0.06 ng/mL (<0.06)
--- NOTE | 2017-08-30 16:21 | NUR ---
MELISSA NOTIFIED UPON PT RETURN FROM CT. PT CONNECTED TO MONITOR
[2017-08-30 18:20] VITALS: BP 92/50
[2017-08-30 19:00] VITALS: BP 109/61
[2017-08-30 21:00] VITALS: BP 97/46
[2017-08-30 22:00] VITALS: BP 95/54
[2017-08-30 23:00] VITALS: BP 128/63
[2017-08-31] VITALS (11 sets, daily range): BP systolic 104–169; BP diastolic 58–78
[2017-08-31 04:30] LABS: ALBUMIN 3.2 g/dL (3.4-5.0); CALCIUM 8.2 mg/dL (8.5-10.1); CREATININE 1.3 mg/dL (0.6-1.3); POTASSIUM 4.4 mmol/L (3.5-5.1); TOTAL BILIRUBIN 0.3 mg/dL (<0.1-1.0); TOTAL PROTEIN 5.3 g/dL (6.4-8.2)
--- NOTE | 2017-08-31 05:29 | NUR ---
PROGRESSING TOWARDS GOALS, ALERT, ORIENTED, AND CONVERSATIVE THIS AM, MILD GREGG 4/10 NUMERICAL PAIN SCALE, A/OX4, RESTING QUIETLY WITH EYES CLOSED MOST OF NOC, EASILY AROUSABLE TO VERBAL STIMULI, STATES FEELING MUCH BETTER THIS AM, NO SOA, DIZZYNESS, NUMBNESS, OR TINGLING, REMAINS SB THROUGHOUT NOC, HR LOW 40'S TO 50'S, ASYMPTOMATIC, REFUSING REPOSITIONING, NS CONTINUES TO RUN AT 150CC/HR VIA INFUSION PUMP PER ORDER, USING URINAL TO VOID CLEAR YELLOW URINE, CALL LIGHT REMAINS IN REACH, BED REMAINS IN LOW AND LOCKED POSITION, HOURLY ROUNDING DONE PER POLICY.
--- NOTE | 2017-08-31 07:33 | NUR ---
ASSUMED CARE OF PATIENT AFTER RECEIVING BEDSIDE REPORT. ASSESSMENT COMPLETED, VSS. PATIENT DENIES COMPLAINTS AND CONCERNS BUT REPORTS HUNGER. PATIENT IS RESTING COMFORTABLY IN BED AND IS MUCH MORE ALERT THAT PREVIOUS NIGHT. MANIFOLD OPERATOR IN PLACE, SINUS BRADYCARDIA NOTED. PATIENT DENIES SUICIDAL IDEATION. PATIENT DOWNGRADED TO MS/TELE PER DR. CARTER. BED ALARM ON. CALL LIGHT WITHIN REACH, USE REINFORCED. WILL CONTINUE TO MONITOR.
--- NOTE | 2017-08-31 11:00 | NUR ---
PATIENT TRANSFERRED TO ROOM 311 VIA WHEELCHAIR FROM ICU. PATIENT'S LOOSE HAND PACKER RESUMED. AGREE WITH PREVIOUS ASSESSMENT. PATIENT ON ROOM AIR. PATIENT ORIENTED TO ROOM AND ENVIRONMENT. FALL PRECAUTIONS IN PLACE. BED ALARM ON. CALL LIGHT WITHIN REACH. WILL CONTINUE WITH PLAN OF CARE.
--- NOTE | 2017-08-31 14:36 | EKG ---
[place] [address] ELECTROCARDIOGRAM REPORT Name: DESTINY MENDES Room: [address] ADM IN M.R.#: [id number] Admission: 08/30/17 Attend Phys: Vivienne Marquez MD Discharge: Date of : 48 Report #: [id number] THIS REPORT FOR: //name// [facility] ED Test Date: 2017-08-30 Test Time: 15:14:51 Pat Name: DESTINY MENDES Department: Room: [facility] Gender: M Flag Maker: Lloyd DURHAM : 1950 Requested By: Jeremy Abernathy Order Number: [id number] MD: Darron Proctor Measurements Intervals [place] Rate: 79 P: 58 LA: 156 QRS: -18 QRSD: 115 T: 100 QT: 445 QTc: 511 Interpretive Statements Sinus rhythm Incomplete left bundle branch block LVH with secondary repolarization abnormality Inferior infarct, old Anterior Q waves, possibly due to LVH Prolonged QT interval Baseline wander in lead(s) II,III,aVF Compared to ECG 08/17/2017 15:30:00 Left ventricular hypertrophy now present Early repolarization now present Electronically Signed On 08-31-2017 14:36:14 CDT by Darron Proctor [email or web address] <ELECTRONICALLY SIGNED> By: Carla Proctor MD, [facility] 08/31/17 1436 1514 1514 Carla Proctor MD, [facility] /EPI
--- NOTE | 2017-08-31 19:31 | NUR ---
PATIENT HAS BEEN A/O X 4 SINCE TRANSFERRING FROM ICU EARLIER. SALINE LOCK PATENT TO RIGHT HAND. IBUPROFEN GIVEN X 2 TDOAY FOR HEADACHE WITH RELIEF. GIVEN NAUSEA MEDS X 1 THIS AFTERNOON WITH RELIEF. UP WITH ASSIST TO BATHROOM, REFUSED PT THIS SHIFT. PATIENT'S AT BEDSIDE THIS AFTERNOON. HOURLY ROUNDING COMPLETED. FALL PRECAUTIONS IN PLACE. CALL LIGHT WITHIN REACH. WILL CONTINUE WITH PLAN OF CARE.
[2017-09-01] VITALS: BP 163/83
[2017-09-01 04:00] VITALS: BP 166/77
--- NOTE | 2017-09-01 07:49 | NUR ---
PT AWAKE WATCHING TV MOST OF THE NIGHT. UP WITH SBA TO BR TO VOID WITHOUT DIFFICULTY, DENIES DIZZINESS OR PROBLEMS AMBULATING. HS ACCUCHECK 136. NO LABS THIS MORNING. TELE SR, SB OVERNIGHT-HR LOW 44 FOR BRIEF PERIOD. IBUPROFEN GIVEN X1 FOR CO HEADACHE WITH GOOD RELIEF. ABLE TO USE CALL LITE AND MAKE NEEDS KNOWN.
[2017-09-01 08:15] VITALS: BP 154/81
[2017-09-01] MEDS ORDERED: SEROQUEL 100 M100 M1 PO (10:23)
[2017-09-01 11:21] VITALS: BP 166/77
--- NOTE | 2017-09-01 11:34 | NUR ---
PATIENT GIVEN DISCHARGE INSTRUCTIONS AND PRESCRIPTIONS AT THIS TIME. APPLICATIONS SYSTEMS ANALYST AND IV REMOVED. PATIENT AND SPOUSE VERBALIZED UNDERSTANDING IN REGARDS TO FOLLOW UP APPOINTMENTS AND MEDICATION CHANGES. PATIENT DISCHARGED TO HOME WITH ALL BELONGINGS. ESCORTED OFF NURSING UNIT VIA WHEELCHAIR WITH NURSING STAFF.
--- NOTE | 2017-09-02 08:17 | NUR ---
P.T. ORDERS RECEIVED 08/31/17. ATTEMPTED EVAL X 2 08/31/17, PT REFUSED. PT DISCHARGED 09/01/17 PRIOR TO COMPLETION OF P.T. EVAL.
[2017-09-13] MEDS ORDERED: QUETIAPINE FUM100 MG PO (10:44)
== END 2017-09-01 11:34 | disposition home or self-care (01) | DRG 917 ==
LOC: M.ERS 15:10 → M.TBA-ER 15:58 → M.ICU 18:28 → M.3W 08-31 10:49
PROVIDERS: Emergency Medicine; ADMIT Internal Medicine
DX: T43.591A Poisoning by other antipsychotics and neuroleptics, accidental (unintentional), initial encounter (principal); G92 Toxic encephalopathy; I50.9 Heart failure, unspecified; K21.9 Gastro-esophageal reflux disease without esophagitis; F31.9 Bipolar disorder, unspecified; E11.9 Type 2 diabetes mellitus without complications; G47.33 Obstructive sleep apnea (adult) (pediatric); F41.0 Panic disorder [episodic paroxysmal anxiety]; I95.9 Hypotension, unspecified; Z91.5 Personal history of self-harm; Z87.891 Personal history of nicotine dependence; Z90.49 Acquired absence of other specified parts of digestive tract; Z93.0 Tracheostomy status; Z98.1 Arthrodesis status; Z98.84 Bariatric surgery status; Z79.899 Other long term (current) drug therapy; Y92.89 Other specified places as the place of occurrence of the external cause

== ENCOUNTER → 2017-09-13 | Outpatient (CLI) | payer OTHER, MEDICARE ==
[~2017-09-13] VITALS: Ht 180.3 cm; Wt 113.4 kg
[~2017-09-13] MED LIST changes: +SEROQUEL 100 M100 M1 PO
[2017-09-13 11:10] LABS: HEMATOCRIT 40.9 % (42.0-52.0); HEMOGLOBIN 13.9 gm/dL (14.0-18.0); MCH 31.2 pg (26.0-34.0); MCV 91.7 fL (80.0-100.0); MPV 6.6 fl. (7.2-11.1); RBC 4.45 mil/uL (4.50-6.00); RDW-CV 15.1 % (10.5-14.5)
[2017-09-13 11:19] LABS: CREATININE 1.3 mg/dL (0.6-1.3); POTASSIUM 3.6 mmol/L (3.5-5.1)
[2017-09-13 11:21] LABS: APTT 21.4 Seconds (25.0-31.3); PROTIME 10.1 Seconds (9.20-11.50)
[2017-09-13 11:24] LABS: TOTAL BILIRUBIN 0.4 mg/dL (<0.1-1.0); TOTAL PROTEIN 6.9 g/dL (6.4-8.2)
[2017-09-13 11:26] VITALS: BP 148/87
--- NOTE | 2017-09-13 11:34 | EKG ---
[place] [address] ELECTROCARDIOGRAM REPORT Name: DESTINY MENDES Room: [facility]#: [id number] Admission: 09/13/17 Attend Phys: Stephen Salinas MD Discharge: Date of : 48 Report #: [id number] THIS REPORT FOR: //name// [facility] Test Date: 2017-09-13 Test Time: 11:15:20 Pat Name: DESTINY MENDES Department: Room: Gender: M Radio Communications Mechanician: : 1950 Requested By: Denny Hodge Order Number: [id number] Reading MD: Denny Hodge Measurements Intervals [place] Rate: 63 P: 25 ME: 169 QRS: -22 QRSD: 123 T: 93 QT: 446 QTc: 457 Interpretive Statements Sinus rhythm Incomplete left bundle-branch block Compared to ECG 08/30/2017 15:14:51 Left ventricular hypertrophy no longer present Early repolarization no longer present Myocardial infarct finding no longer present Q waves no longer present Prolonged QT interval no longer present Electronically Signed On 09-13-2017 11:34:37 CDT by Denny Hodge [email or web address] <ELECTRONICALLY SIGNED> By: Denny Hodge MD, FACC 09/13/17 1134 1115 1115 Denny Hodge MD, [facility] /EPI
[2017-09-13 13:10] VITALS: BP 166/87
[2017-09-13 13:31] VITALS: BP 180/96
[2017-09-13 14:41] VITALS: BP 180/96
[2017-09-13 15:21] VITALS: BP 180/96
--- NOTE | 2017-09-14 08:35 | EKG ---
[place] [address] ELECTROCARDIOGRAM REPORT Name: MEENURYANDESTINY Room: [facility]#: [id number] Admission: 09/13/17 Attend Phys: Stephen Salinas MD Discharge: Date of : 48 Report #: [id number] THIS REPORT FOR: //name// [facility] Test Date: 2017-09-13 Test Time: 16:30:36 Pat Name: DESTINY MENDES Department: Room: Gender: M Wood Panel Inspector: 26 : 1950 Requested By: Denny Hodge Order Number: [id number] Reading MD: Denny Hodge Measurements Intervals [place] Rate: 60 P: NM: 171 QRS: -16 QRSD: 121 T: 84 QT: 467 QTc: 467 Interpretive Statements Atrial-paced complexes Left bundle branch block Compared to ECG 09/13/2017 11:15:20 Sinus rhythm no longer present Electronically Signed On 09-14-2017 8:35:18 CDT by Denny Hodge [email or web address] <ELECTRONICALLY SIGNED> By: Denny Hodge MD, [facility] 09/14/17 0835 29 Denny Hodge MD, FACC /EPI
--- NOTE | 2017-09-15 14:05 | CARD ---
[place] [address] CARDIAC CATH REPORT Name: DESTINY MENDES Room: [facility] Montalvo#: [id number] Admission: 09/13/17 Attend Phys: Stephen Salinas MD Discharge: Date of : 48 Report #: [id number] THIS REPORT FOR: //name// APPROVED REPORT Study performed: 09/13/2017 10:52:30 Event Personnel: Denny Hodge Cableman, Grazyna Montelongo RN Life Specialist, Craig Ocampo (R) Monitor, Lupe Youngblood Scrub Exam: Insertion of Dual Chamber Permanent Pacemaker Indications: Sinus Bradycardia (Persistant) The patient is a 67 year-old male with a history of . Conscious Sedation Fentanyl 50 mcg Versed 2 mg Implanted Devices: Biotronik Eluna 8 DRT pro-MRI, model #781120, serial #[id number] Biotronik Solia S 53, model #967008, serial number [id number] Biotronik Soliaolely S 60 model #155747, serial #[id number] Procedure The patient underwent informed consent. We discussed the details of the procedure including the risks, which include, but not limited to bleeding, infection, vascular damage, cardiac perforation, and pneumothorax. After informed consent was obtained the patient was brought to the interventional radiology lab. The area of the left chest was prepped and draped in sterile fashion. Local anesthesia was achieved with 1% lidocaine. Next after an initial incision was made a device pocket was formed over the left pectoralis muscle using electrocautery and blunt dissection. Using a micropuncture kit the left subclavian vein was then accessed through the pocket. Ultimately a safety J guidewire was advanced to the right atrium under fluoroscopic guidance. The guidewire was externally fixed using a Jenn forcep. Next utilizing the micropuncture kit a second time the left subclavian vein was accessed. Ultimately a second safety J-wire was advanced to the right atrium under fluoroscopic guidance. A 7 Faroese tear-away introducer was advanced over the free guidewire. The guidewire and dilator were removed and the ventricular lead advanced to a secure position within the right ventricular apex. The lead was actively fixed. Thresholds were checked and deemed to be satisfactory[place] [address] CARDIAC CATH REPORT Name: DESTINY MENDES [id number] Admission: 09/13/17 Attend Phys: Stephen Salinas MD Discharge: Date of : 48 Report #: [id number] was removed. Next utilizing the remaining guidewire a second 7 Faroese tear-away introducer was advanced. The dilator and guidewire were removed and an atrial lead advanced to a secure position within the right atrial appendage. The lead was actively fixed. The tear-away introducer was removed. Thresholds were checked and deemed to be satisfactory. Adequate slack was assured and the atrial and ventricular lead. The leads were then secured with the designated cuff using 2-0 silk suture. The pocket was then flushed with antibiotic solution. Next a dual-chamber pulse generator was attached to the atrial and ventricular lead. The pulse generator and redundant lead were then placed within the pacemaker pocket. The deep tissues were closed using interrupted stitches of 2-0 Vicryl suture. The skin incision was then closed with a single subcuticular stitch of 4-0 Vicryl. Several Steri-Strips were placed across the incision. A sterile Telfa dressing was then covered with a Tegaderm. At conclusion of the procedure was noted that the atrial lead thresholds have changed dramatically. Chest x-ray revealed migration of the lead. The patient was brought back to the interventional radiology lab. The pocket was then opened. The atrial lead was repositioned. Again the device generator and redundant leads were placed within the pacemaker pocket. The deep tissues were again closed with interrupted stitches of 2-0 Vicryl. The skin incision was then closed with a single subcuticular stitch of 4-0 Vicryl. Several Steri-Strips were again placed across the incision. A sterile Telfa dressing was then covered with a Tegaderm. The patient tolerated the procedure well without complication. Electrode Parameters P Wave: 4.2 mV R Wave: 13.6 mV Atrial Threshold: 1 V at 0.40 ms Ventricular Threshold: 0.6 V at 0.40 ms Atrial Resistance: 448 ohms Ventricular Resistance: 682 ohms Mode DDD/CLS. Lower pacing rate 60 bpm. Upper tracking rate 130 bpm. 130 bpm. Mode switch rate 160 bpm. Complications The patient tolerated the procedure well and there were no complications associated with the procedure. Conclusion 1. Persistent [place] [address] CARDIAC CATH REPORT Name: DESTINY MENDES Room: [facility]#: [id number] Admission: 09/13/17 Attend Phys: Stephen Salinas MD Discharge: Date of : 48 Report #: [id number] 2. Successful placement of a dual-chamber pacemaker with atrial and ventricular lead placement. Recommendations 1. Follow-up site check in one week. <ELECTRONICALLY SIGNED> By: Denny Hodge MD, FACC 09/15/17 1405 1405 1405[facility] centernay Hodge MD, FACC /INF
== END | disposition home or self-care (01) ==
LOC: M.CL 10:09
PROVIDERS: Internal Medicine Cardiovascular Disease
DX: Z45.018 Encounter for adjustment and management of other part of cardiac pacemaker (principal); R00.1 Bradycardia, unspecified; I50.9 Heart failure, unspecified; I48.91 Unspecified atrial fibrillation; G47.33 Obstructive sleep apnea (adult) (pediatric); K21.9 Gastro-esophageal reflux disease without esophagitis; F41.9 Anxiety disorder, unspecified; F32.9 Major depressive disorder, single episode, unspecified; Z96.651 Presence of right artificial knee joint; Z98.890 Other specified postprocedural states; Z98.84 Bariatric surgery status; Z90.49 Acquired absence of other specified parts of digestive tract; Z79.01 Long term (current) use of anticoagulants; Z79.899 Other long term (current) drug therapy; Z93.0 Tracheostomy status; Z87.891 Personal history of nicotine dependence; Z91.040 Latex allergy status

== ENCOUNTER 2017-10-03 10:34 | Emergency (ER) | payer OTHER, MEDICARE ==
[~2017-10-03] VITALS: Ht 180.3 cm; Wt 107.0 kg
[2017-10-03 11:07] LABS: ABSOLUTE EOSINOPHILS 0.1 thou/uL (0.0-0.7); ABSOLUTE LYMPHOCYTES 1.5 thou/uL (0.8-5.3); ABSOLUTE MONOCYTES 0.5 thou/uL (0.0-1.2); ABSOLUTE NEUTROPHILS 2.9 thou/uL (1.6-8.1); BASOPHILS 0.8 %; EOSINOPHILS 2.6 %; HEMATOCRIT 41.1 % (42.0-52.0); LYMPHOCYTES 28.7 %; MCH 31.1 pg (26.0-34.0); MCHC 34.1 g/dL (28.0-37.0); MCV 91.2 fL (80.0-100.0); MONOCYTES 10.7 %; MPV 7.2 fl. (7.2-11.1); NUCLEATED RBCS 0 /100WBC; PLATELET COUNT* 153 thou/uL (150-400); POLYS 57.2 %; RBC 4.51 mil/uL (4.50-6.00); RDW-CV 15.9 % (10.5-14.5); WBC 5.1 thou/uL (4.0-11.0)
[2017-10-03 11:13] LABS: ANION GAP 7 mmol/L (7-16); BUN 13 mg/dL (7-18); CALCIUM 8.9 mg/dL (8.5-10.1); CHLORIDE 106 mmol/L (98-107); CO2 27 mmol/L (21-32); CREATININE 1.7 mg/dL (0.6-1.3); GLUCOSE 86 mg/dL (70-99); POTASSIUM 3.6 mmol/L (3.5-5.1); SODIUM 140 mmol/L (136-145)
[2017-10-03 11:20] LABS: ALKALINE PHOSPHATASE 71 U/L (46-116); SGOT 15 U/L (15-37); SGPT 19 U/L (30-65); TOTAL BILIRUBIN 0.4 mg/dL (<0.1-1.0); TOTAL PROTEIN 6.5 g/dL (6.4-8.2); TROPONIN-I LEVEL <0.06 ng/mL (<0.06)
[2017-10-03 13:41] LABS: URINE BILIRUBIN NEGATIVE (Negative); URINE BLOOD NEGATIVE (Negative); URINE CLARITY CLEAR; URINE COLOR YELLOW; URINE GLUCOSE-RANDOM NEGATIVE (Negative); URINE KETONES NEGATIVE (Negative); URINE LEUKOCYTES-REFLEX NEGATIVE (Negative); URINE NITRITE-REFLEX NEGATIVE (Negative); URINE PROTEIN NEGATIVE (Negative); URINE UROBILINOGEN 0.2 E.U./dl (0.2-1.0)
[2017-10-03 13:57] VITALS: BP 134/83
--- NOTE | 2017-10-03 16:56 | EKG ---
[place] [address] ELECTROCARDIOGRAM REPORT Name: VAUGHNDESTINY ANDRZEJ [id number] Admission: 10/03/17 Attend Phys: Discharge: 10/03/17 Date of : 48 Report #: [id number] THIS REPORT FOR: //name// [facility] ED Test Date: 2017-10-03 Test Time: 10:43:43 Pat Name: DESTINY MENDES Department: Room: Gender: M Horser Up: STUDENT : 1950 Requested By: Chante Paredes Order Number: [id number] MD: Torito Rizzo Measurements Intervals [place] Rate: 72 P: MS: 177 QRS: -18 QRSD: 125 T: 95 QT: 439 QTc: 481 Interpretive Statements Atrial-paced rhythm Left bundle branch block Compared to ECG 09/13/2017 16:30:36 No significant changes Electronically Signed On 10-03-2017 16:56:00 CDT by Torito Rizzo [email or web address] <ELECTRONICALLY SIGNED> By: Torito Rizzo MD, [facility] 10/03/17 1656 D: [id number] Torito Rizzo MD, FACC /EPI
== END 2017-10-03 14:00 | disposition left against medical advice (07) ==
LOC: M.ERS 10:34
PROVIDERS: Personal Emergency Response Attendant
DX: I95.1 Orthostatic hypotension (principal); K21.9 Gastro-esophageal reflux disease without esophagitis; F43.10 Post-traumatic stress disorder, unspecified; G47.33 Obstructive sleep apnea (adult) (pediatric); F41.0 Panic disorder [episodic paroxysmal anxiety]; I48.91 Unspecified atrial fibrillation; I50.9 Heart failure, unspecified; Z96.651 Presence of right artificial knee joint; Z91.040 Latex allergy status

== ENCOUNTER 2017-12-09 10:48 | Emergency (ER) | payer OTHER, MEDICARE ==
[~2017-12-09] VITALS: Ht 180.3 cm; Wt 107.0 kg
[2017-12-09 12:12] LABS: ABSOLUTE EOSINOPHILS 0.1 thou/uL (0.0-0.7); ABSOLUTE LYMPHOCYTES 0.7 thou/uL (0.8-5.3); ABSOLUTE MONOCYTES 0.5 thou/uL (0.0-1.2); ABSOLUTE NEUTROPHILS 5.8 thou/uL (1.6-8.1); BASOPHILS 0.5 %; EOSINOPHILS 0.8 %; HEMATOCRIT 44.5 % (42.0-52.0); HEMOGLOBIN 14.9 gm/dL (14.0-18.0); LYMPHOCYTES 10.3 %; MCHC 33.4 g/dL (28.0-37.0); MCV 92.7 fL (80.0-100.0); MPV 7.7 fl. (7.2-11.1); NUCLEATED RBCS 0 /100WBC; PLATELET COUNT* 179 thou/uL (150-400); POLYS 81.4 %; RBC 4.79 mil/uL (4.50-6.00); RDW-CV 15.1 % (10.5-14.5); WBC 7.2 thou/uL (4.0-11.0)
[2017-12-09 12:30] LABS: ANION GAP 2 mmol/L (7-16); BUN 23 mg/dL (7-18); CALCIUM 8.9 mg/dL (8.5-10.1); CHLORIDE 105 mmol/L (98-107); CO2 30 mmol/L (21-32); CREATININE 1.4 mg/dL (0.6-1.3); GLUCOSE 101 mg/dL (70-99); POTASSIUM 5.2 mmol/L (3.5-5.1); SODIUM 137 mmol/L (136-145)
[2017-12-09 12:34] LABS: URINE BILIRUBIN NEGATIVE (Negative); URINE BLOOD NEGATIVE (Negative); URINE CLARITY CLEAR; URINE COLOR YELLOW; URINE GLUCOSE-RANDOM NEGATIVE (Negative); URINE KETONES NEGATIVE (Negative); URINE LEUKOCYTES-REFLEX NEGATIVE (Negative); URINE NITRITE-REFLEX NEGATIVE (Negative); URINE PROTEIN NEGATIVE (Negative); URINE UROBILINOGEN 0.2 E.U./dl (0.2-1.0)
[2017-12-09 12:46] LABS: ALBUMIN 3.9 g/dL (3.4-5.0); ALKALINE PHOSPHATASE 106 U/L (46-116); CK-MB MASS 1.1 ng/mL (<0.5-3.6); SGOT 29 U/L (15-37); SGPT 80 U/L (30-65); TOTAL BILIRUBIN 0.3 mg/dL (<0.1-1.0); TOTAL PROTEIN 6.8 g/dL (6.4-8.2); TROPONIN-I LEVEL <0.06 ng/mL (<0.06)
[2017-12-09 13:26] VITALS: BP 134/71
--- NOTE | 2017-12-09 19:37 | EKG ---
[place] [address] ELECTROCARDIOGRAM REPORT Name: DESTINY MENDES Room: [facility] [place] [id number] Admission: 12/09/17 Attend Phys: Discharge: 12/09/17 Date of : 48 Report #: [id number] THIS REPORT FOR: //name// [facility] ED Test Date: 2017-12-09 Test Time: 11:50:47 Pat Name: DESTINY MENDES Department: Room: Gender: M Transfer Coordinator: : 1950 Requested By: Claudia Dean Order Number: [id number] MD: Denny Hodge Measurements Intervals [place] Rate: 79 P: [place]: 159 QRS: -22 QRSD: 128 T: 80 QT: 407 QTc: 467 Interpretive Statements Atrial-paced complexes Left bundle branch block Baseline wander in lead(s) III,aVF Compared to ECG 10/03/2017 10:43:43 Ventricular-paced complex(es) or rhythm no longer present Electronically Signed On 12-09-2017 19:36:55 CDT by Denny Hodge [email or web address] <ELECTRONICALLY SIGNED> By: Denny Hodge MD, FACC 12/09/17 1936 1150 1150 Denny Hodge MD, FAC /EPI
== END 2017-12-09 13:27 | disposition home or self-care (01) ==
LOC: M.ERS 10:48
PROVIDERS: Nurse Practitioner Family
DX: E87.5 Hyperkalemia (principal); Z71.1 Person with feared health complaint in whom no diagnosis is made; I50.9 Heart failure, unspecified; K21.9 Gastro-esophageal reflux disease without esophagitis; F43.10 Post-traumatic stress disorder, unspecified; F41.9 Anxiety disorder, unspecified; Z90.49 Acquired absence of other specified parts of digestive tract; I48.91 Unspecified atrial fibrillation; Z98.84 Bariatric surgery status; Z91.040 Latex allergy status

== ENCOUNTER → 2018-03-04 | Outpatient (CLI) | payer OTHER, MEDICARE | LOC: M.NUC 07:07 | DX: K31.84 Gastroparesis (principal); E11.9 Type 2 diabetes mellitus without complications; R11.0 Nausea ==

== ENCOUNTER 2018-06-25 13:54 | Emergency (ER) | payer OTHER, MEDICARE ==
[~2018-06-25] VITALS: Ht 180.3 cm; Wt 108.9 kg
[2018-06-25 14:52] LABS: ABSOLUTE BASOPHILS 0.1 thou/uL (0.0-0.2); ABSOLUTE EOSINOPHILS 0.3 thou/uL (0.0-0.7); ABSOLUTE LYMPHOCYTES 1.9 thou/uL (0.8-5.3); ABSOLUTE MONOCYTES 0.7 thou/uL (0.0-1.2); BASOPHILS 0.9 %; HEMATOCRIT 43.1 % (42.0-52.0); HEMOGLOBIN 14.9 gm/dL (14.0-18.0); LYMPHOCYTES 21.4 %; MCH 32.3 pg (26.0-34.0); MCHC 34.6 g/dL (28.0-37.0); MCV 93.2 fL (80.0-100.0); MONOCYTES 7.4 %; MPV 7.5 fl. (7.2-11.1); NUCLEATED RBCS 0 /100WBC; PLATELET COUNT* 183 thou/uL (150-400); POLYS 67.3 %; RBC 4.62 mil/uL (4.50-6.00); RDW-CV 13.5 % (10.5-14.5); WBC 8.9 thou/uL (4.0-11.0)
[2018-06-25 15:06] LABS: ANION GAP 7 mmol/L (7-16); BUN 12 mg/dL (7-18); CALCIUM 9.2 mg/dL (8.5-10.1); CHLORIDE 102 mmol/L (98-107); CO2 29 mmol/L (21-32); CREATININE 1.2 mg/dL (0.6-1.3); GLUCOSE 89 mg/dL (70-99); POTASSIUM 4.1 mmol/L (3.5-5.1); SODIUM 138 mmol/L (136-145)
[2018-06-25 15:16] LABS: ALBUMIN 3.8 g/dL (3.4-5.0); ALKALINE PHOSPHATASE 105 U/L (46-116); LIPASE 196 U/L (73-393); NT-PRO BRAIN NAT PEPTIDE 38 pg/mL (<300); SGOT 38 U/L (15-37); SGPT 49 U/L (30-65); TOTAL BILIRUBIN 0.4 mg/dL (<0.1-1.0); TOTAL PROTEIN 7.5 g/dL (6.4-8.2); TROPONIN-I LEVEL <0.06 ng/mL (<0.06)
[2018-06-25] MEDS ORDERED: MIDODRINE HCL 55 M1 PO (15:21)
[2018-06-25] MEDS ORDERED: FLAGYL500 M1 PO (16:35)
[2018-06-25] MEDS ORDERED: CIPRO500 MG PO (16:35)
[2018-06-25] MEDS ORDERED: ACETAMINOPHEN-1 EAC1 PO (16:35)
[2018-06-25 16:59] VITALS: BP 134/80
--- NOTE | 2018-06-26 15:27 | EKG ---
[place] [address] ELECTROCARDIOGRAM REPORT Name: DESTINY MENDES [id number] Admission: 06/25/18 Attend Phys: Discharge: 06/25/18 Date of : 49 Report #: [id number] THIS REPORT FOR: //name// [facility] ED Test Date: 2018-06-25 Test Time: 15:05:04 Pat Name: DESTINY MENDES Department: Room: Gender: M Project Scheduler: TULIO : 1950 Requested By: Chante Hancock Order Number: [id number] MD: Leif Ruiz Measurements Intervals [place] Rate: 78 P: RI: 182 QRS: -15 QRSD: 131 T: 81 QT: 405 QTc: 462 Interpretive Statements Atrial-paced complexes LBBB Electronically Signed On 06-26-2018 15:27:50 CLAY MINE CUTTING MACHINE OPERATOR by Leif Ruiz [email or web address] <ELECTRONICALLY SIGNED> By: Leif Ruiz MD, [facility] 06/26/18 1527 1505 1505 Leif Ruiz MD, FACC /EPI
== END 2018-06-25 16:59 | disposition home or self-care (01) ==
LOC: M.ERS 13:54
PROVIDERS: Physician Assistant
DX: R55 Syncope and collapse (principal); K57.92 Diverticulitis of intestine, part unspecified, without perforation or abscess without bleeding; I50.9 Heart failure, unspecified; K21.9 Gastro-esophageal reflux disease without esophagitis; G47.33 Obstructive sleep apnea (adult) (pediatric); F41.9 Anxiety disorder, unspecified; Z90.49 Acquired absence of other specified parts of digestive tract; Z98.84 Bariatric surgery status; I48.91 Unspecified atrial fibrillation; Z95.0 Presence of cardiac pacemaker; Z91.040 Latex allergy status

== ENCOUNTER 2018-07-02 14:33 | Inpatient (IN) | payer OTHER, MEDICARE ==
[~2018-07-02] VITALS: Ht 180.3 cm; Wt 111.1 kg
[~2018-07-02 14:33] MED LIST changes: +ACETAMINOPHEN-1 EAC1 PO; +CIPRO500 MG PO; +FLAGYL500 M1 PO
[2018-07-02 14:43] VITALS: BP 128/84
[2018-07-02 15:40] LABS: ABSOLUTE BASOPHILS 0.1 thou/uL (0.0-0.2); ABSOLUTE EOSINOPHILS 0.4 thou/uL (0.0-0.7); ABSOLUTE LYMPHOCYTES 1.9 thou/uL (0.8-5.3); ABSOLUTE MONOCYTES 0.6 thou/uL (0.0-1.2); BASOPHILS 1.3 %; EOSINOPHILS 5.4 %; HEMATOCRIT 41.3 % (42.0-52.0); HEMOGLOBIN 14.5 gm/dL (14.0-18.0); LYMPHOCYTES 27.2 %; MCH 32.6 pg (26.0-34.0); MCHC 35.1 g/dL (28.0-37.0); MCV 92.8 fL (80.0-100.0); MONOCYTES 9.2 %; MPV 6.9 fl. (7.2-11.1); NUCLEATED RBCS 0 /100WBC; PLATELET COUNT* 207 thou/uL (150-400); POLYS 56.9 %; RBC 4.44 mil/uL (4.50-6.00); RDW-CV 13.5 % (10.5-14.5)
[2018-07-02 15:53] LABS: CALCIUM 8.5 mg/dL (8.5-10.1); CREATININE 1.5 mg/dL (0.6-1.3); POTASSIUM 4.4 mmol/L (3.5-5.1)
[2018-07-02 15:58] LABS: ALBUMIN 3.5 g/dL (3.4-5.0); TOTAL BILIRUBIN 0.2 mg/dL (<0.1-1.0); TOTAL PROTEIN 6.4 g/dL (6.4-8.2)
[2018-07-02 17:56] VITALS: BP 143/77
[2018-07-02 18:15] VITALS: BP 165/79
--- NOTE | 2018-07-02 19:15 | NUR ---
PATIENT ARRIVED TO UNIT AT APPROX 1815. ADMISSION HISTORY AND ASSESSMENT COMPLETED BY STUDENT NURSE CASSANDRA AND REVIEWED BY THIS NURSE. NO COMPLAINTS OF PAIN, NAUSEA OR SOA. EDUCATED ON SAFETY AND INSTRUCTED PATIENT TO USE CALL LIGHT FOR NEEDS. PATIENT UP AD RANDA. HOURLY ROUNDS COMPLETED, CALL LIGHT WITHIN REACH, NURSING WILL CONTINUE TO MONITOR.
[2018-07-02 20:00] VITALS: BP 122/97
[2018-07-03 04:15] LABS: HEMATOCRIT 41.2 % (42.0-52.0); HEMOGLOBIN 14.1 gm/dL (14.0-18.0); MCH 31.7 pg (26.0-34.0); MCHC 34.3 g/dL (28.0-37.0); MCV 92.6 fL (80.0-100.0); MPV 7.1 fl. (7.2-11.1); RBC 4.44 mil/uL (4.50-6.00); RDW-CV 13.4 % (10.5-14.5); WBC 5.6 thou/uL (4.0-11.0)
[2018-07-03 04:25] LABS: CALCIUM 8.7 mg/dL (8.5-10.1); CREATININE 1.3 mg/dL (0.6-1.3); MAGNESIUM 2.1 mg/dL (1.8-2.4); POTASSIUM 5.1 mmol/L (3.5-5.1)
[2018-07-03 07:40] VITALS: BP 127/69
[2018-07-03 17:32] VITALS: BP 152/79
--- NOTE | 2018-07-03 17:53 | NUR ---
ASSUMED CARE OF PATIENT AT APROX 0730. ALERT AND ORIENTED X4. ASSESSMENT COMPLETED AND CHARTED. VSS ON ROOM AIR. PATIENT HAD NO COMPLAINTS OF SOA. NAUSEA AND PAIN HAVE BEEN MANAGED WITH MEDICATIONS. FLUIDS AND ANTIBIOTICS INFUSED ORDERED. PATIENT RESTINF COMFORTABLY IN BED ON ROUNDS. PATIENT UP AD RANDA. CALL LIGHT WITHIN REACH. HOURLY ROUNDS COMPLETED. NURSING WILL CONTINUE TO MONITOR.
[2018-07-03 20:01] VITALS: BP 157/86
--- NOTE | 2018-07-04 04:18 | NUR ---
PT REMAINED ALERT AND ORIENTED. PT SLEPT THROUGH THE NIGHT. FALL RISK PRECAUTIONS IN PLACE. HOURLY ROUNDING COMPLETED. WILL CONTINUE TO MONITOR.
[2018-07-04 08:15] VITALS: BP 127/67
[2018-07-04 16:04] VITALS: BP 129/68
--- NOTE | 2018-07-04 16:10 | NUR ---
PT.LIVES WITH HIS . HAS A WALKER BUT DOES NOT NEED TO USE IT. HAS BEEN UP AD RANDA IN ROOM. IS NORMALLY INDEPENDENT. PLANS TO RETURN HOME AT DISCHARGE. DOES NOT FEEL HE WILL HAVE ANY DISCHARGE NEEDS.
--- NOTE | 2018-07-04 18:12 | NUR ---
ALERT AND ORIENTED X4. UP AD RANDA IN ROOM. IV IS PATENT AND INFUSING. PAIN BEING MANAGED WITH PO PAIN MEDICATION. NAUSEA BEING MANAGED WITH IV NAUSEA MEDICATION. TOLERATING DIET. ANTIBIOTICS GIVEN CHARTED. VSS ON ROOM AIR. HOURLY ROUNDS HAVE BEEN MAINTAINED THROUGHOUT SHIFT. CALL LIGHT IS WITHIN REACH. NURSING WILL CONTINUE TO MONITOR.
--- NOTE | 2018-07-04 19:02 | NUR ---
RN HAS REVIEWED AND AGREES WITH STUDENT NURSES CHARTING.
[2018-07-04 22:06] VITALS: BP 147/80
--- NOTE | 2018-07-05 05:21 | NUR ---
PATIENT ALERT AND ORIENTED X 4. VITAL SIGNS STABLE ON ROOM AIR. AFEBRILE. UP INDEPENDENTLY IN ROOM. IV PATENT AND FLUIDS INFUSING. ANTIBIOTICS GIVEN PER EMAR. DENIES PAIN AND NAUSEA. HOURLY ROUNDS MAINTAINED THROUGHOUT THE SHIFT. CALL LIGHT WITHIN REACH. NURSING WILL CONTINUE TO MONITOR.
[2018-07-05 10:43] VITALS: BP 138/76
[2018-07-05 12:01] VITALS: BP 138/76
[2018-07-05 13:06] VITALS: BP 138/76
--- NOTE | 2018-07-05 13:06 | NUR ---
PT GIVEN DISCHARGE INFORMATION, CARE NOTES, AND PRESCRIPTIONS. IV REMOVED. PT LEFT TO HOME CARE VIA AMBULATORY WITH SIGNIFICANT OTHER. FALL RISK PRECAUTIONS IN PLACE. HOURLY ROUNDING COMPLETED.
== END 2018-07-05 13:08 | disposition home or self-care (01) | DRG 392 ==
LOC: M.ERS 14:33 → M.ORTHSURG 16:37 → M.TBA-ER 16:37 → M.ORTHSURG 18:14
PROVIDERS: Nurse Practitioner Family; ADMIT Internal Medicine
DX: K57.92 Diverticulitis of intestine, part unspecified, without perforation or abscess without bleeding (principal); K21.9 Gastro-esophageal reflux disease without esophagitis; F43.10 Post-traumatic stress disorder, unspecified; F41.9 Anxiety disorder, unspecified; I48.91 Unspecified atrial fibrillation; G43.909 Migraine, unspecified, not intractable, without status migrainosus; I50.9 Heart failure, unspecified; Z96.651 Presence of right artificial knee joint; G47.33 Obstructive sleep apnea (adult) (pediatric); E66.9 Obesity, unspecified; Z98.84 Bariatric surgery status; Z98.1 Arthrodesis status; Z90.49 Acquired absence of other specified parts of digestive tract; Z95.0 Presence of cardiac pacemaker; Z91.040 Latex allergy status; Z91.048 Other nonmedicinal substance allergy status; Z79.899 Other long term (current) drug therapy; Z87.891 Personal history of nicotine dependence; Z68.34 Body mass index [BMI] 34.0-34.9, adult

== ENCOUNTER 2018-08-09 17:23 | Inpatient (IN) | payer OTHER, MEDICARE ==
[~2018-08-09] VITALS: Ht 180.3 cm; Wt 109.8 kg
--- NOTE | ~2018-08-09 | CON ---
[address] [address] CONSULTATION Name: VAUGHNDESTINYMAIRA DONNELLY Room: [address] IN M.R.#: [id number] Admission: 08/09/18 Attend Phys: Destinee Burris MD Discharge: Date of : 48 Report #: [id number] THIS REPORT FOR: //name// CC: Silke Burris ADDENDUM: . In addition to these issues, the patient has longstanding thrombocytopenia of uncertain etiology. Given his morbid obesity, certainly nonalcoholic fatty liver could cause issues related to the same without evidence for decompensated liver disease. His spleen is mildly prominent. I am not certain if FibroScan will give us significant information, but at some point in time, he will likely need to have an ultrasound-guided liver biopsy to evaluate for possible portal hypertension causing his issues. In the interim, I will check some baseline blood test as well as an acute hepatitis panel and the like. By: 1726 2051Schuyler Thomas DO /nt
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
--- NOTE | ~2018-08-09 | CON ---
[address] [address] CONSULTATION Name: VAUGHNDESTINY ANDRZEJ Room: [address] ADM IN M.R.#: [id number] Admission: 08/09/18 Attend Phys: Destinee Burris MD Discharge: Date of : 48 Report #: [id number] THIS REPORT FOR: //name// CC: Silke Rodriguez OUTBOUND TELEMARKETER Destinee Burris MD ADDENDUM TO JOB #[id number] REFERRING PHYSICIAN: Dr. Destinee Burris. I have seen and examined the patient and agree with plan that has been outlined by our nurse practitioner, Viv Mcintyre. HISTORY OF PRESENT ILLNESS: The patient is a pleasant 68-year-old white male who has had recurrent bouts of diverticulitis over the last couple of months, was treated initially with antibiotics as an outpatient and had to come in for a short course of IV antibiotics and then sent home on another short course of oral antibiotics. After completing the same, he has had recurrent bouts of left lower quadrant pain associated with CT scans associated with nausea and vomiting. He is currently admitted to hospital for recurrent diverticulitis. He states that prior to this year, he did not really have any bleeding issues, but it has been ongoing for the last couple of months. He has undergone endoscopic studies of his lower GI tract in the past, but he does not recall where or when it was done, but it has been some time ago. He has no family history of diverticulitis, colitis, polyps, tumors, cancers, inflammatory bowel disease or Crohn's disease. He is not ill appearing. PHYSICAL EXAMINATION: Minimally remarkable with some left lower quadrant tenderness. I reviewed the patient's CT scan of the abdomen and pelvis, which revealed some stranding at the level of the junction of the descending and sigmoid colon with pericolonic stranding, but no evidence for abscess formation or any other abnormalities. He also has postsurgical changes compatible with gastric sleeve that was done years ago for morbid obesity. At the present time, I will continue with medical therapy with IV antibiotics and then switch him over to a 14-day course of oral antibiotics upon discharge. We would then wait for additional 2-4 weeks and get him set up for upper and lower endoscopy as an outpatient at since [facility] to evaluate status of the same. Although he is not the best surgical candidate for segmental resection of his colon, if he continues to have problems related to the same or has a complicated course with abscess formation, certainly this may need to be a consideration. Only time will tell what needs to be done with regards [place] [address] CONSULTATION Name: DESTINY MENDES Room: [address] IN M.R.#: [id number] Admission: 08/09/18 Attend Phys: Destinee Burris MD Discharge: Date of : 48 Report #: [id number] In addition to these issues, the patient has longstanding thrombocytopenia of uncertain etiology. Given his morbid obesity, certainly nonalcoholic fatty liver could cause issues related to the same without evidence for decompensated liver disease. His spleen is mildly prominent. I am not certain if FibroScan will give us significant information, but at some point in time, he will likely need to have an ultrasound-guided liver biopsy to evaluate for possible portal hypertension causing his issues. In the interim, I will check some baseline blood test as well as an acute hepatitis panel and the like. By: 1724 0102Schuyler Thomas DO /nt
[2018-08-09 17:30] VITALS: BP 147/57
[2018-08-09] MEDS ORDERED: TRAZODONE HCL100 MG PO (17:43)
[2018-08-09] MEDS ORDERED: NEXIUM40 MG PO (17:44)
[2018-08-09] MEDS ORDERED: ZYPREXA ZYDIS10 MG PO (17:44)
[2018-08-09] MEDS ORDERED: DEPAKOTE 250MG250 M1 PO (17:45)
[2018-08-09 18:33] LABS: HEMOGLOBIN 12.4 gm/dL (14.0-18.0); PLATELET COUNT* 80 thou/uL (150-400)
[2018-08-09 18:34] LABS: HEMATOCRIT 35.2 % (42.0-52.0); MCH 31.9 pg (26.0-34.0); MCHC 35.3 g/dL (28.0-37.0); MCV 90.6 fL (80.0-100.0); MPV 7.8 fl. (7.2-11.1); NUCLEATED RBCS 0 /100WBC; RBC 3.88 mil/uL (4.50-6.00); RDW-CV 14.1 % (10.5-14.5)
[2018-08-09 19:00] LABS: ALBUMIN 2.9 g/dL (3.4-5.0); ALKALINE PHOSPHATASE 138 U/L (46-116); ANION GAP 6 mmol/L (7-16); BUN 12 mg/dL (7-18); CALCIUM 7.9 mg/dL (8.5-10.1); CHLORIDE 96 mmol/L (98-107); CO2 26 mmol/L (21-32); CREATININE 1.1 mg/dL (0.6-1.3); GLUCOSE 102 mg/dL (70-99); LIPASE 177 U/L (73-393); SGOT 42 U/L (15-37); SGPT 76 U/L (30-65); SODIUM 128 mmol/L (136-145); TOTAL BILIRUBIN 0.9 mg/dL (<0.1-1.0); TOTAL PROTEIN 5.7 g/dL (6.4-8.2); TROPONIN-I LEVEL <0.06 ng/mL (<0.06)
[2018-08-09 19:57] LABS: ABSOLUTE EOSINOPHILS 0.3 thou/uL (0.0-0.7); ABSOLUTE LYMPHOCYTES 0.1 thou/uL (0.8-5.3); ABSOLUTE MONOCYTES 0.4 thou/uL (0.0-1.2); ABSOLUTE NEUTROPHILS 3.2 thou/uL (1.6-8.1); PLATELET ESTIMATE ADEQUATE
[2018-08-09 20:34] LABS: APTT 34.5 Seconds (25.0-31.3); PROTIME 10.5 Seconds (9.20-11.50)
[2018-08-09 22:07] VITALS: BP 147/57
[2018-08-09 22:30] LABS: URINE BILIRUBIN NEGATIVE (Negative); URINE BLOOD NEGATIVE (Negative); URINE CLARITY CLEAR; URINE COLOR YELLOW; URINE GLUCOSE-RANDOM NEGATIVE (Negative); URINE KETONES NEGATIVE (Negative); URINE LEUKOCYTES-REFLEX NEGATIVE (Negative); URINE NITRITE-REFLEX NEGATIVE (Negative); URINE PROTEIN NEGATIVE (Negative); URINE SPECIFIC GRAVITY <= 1.005 (1.005-1.030); URINE UROBILINOGEN 0.2 E.U./dl (0.2-1.0)
[2018-08-09 22:41] LABS: AMP/METHAMP Negative (Negative); BARBITURATES Negative (Negative); BENZODIAZEPINES POSITIVE (Negative); COCAINE Negative (Negative); METHADONE Negative (Negative); OPIATES Negative (Negative); PCP Negative (Negative); THC Negative (Negative)
[2018-08-09 23:40] VITALS: BP 120/60
[2018-08-10] MEDS ORDERED: PRINIVIL10 MG PO (01:06)
[2018-08-10] MEDS ORDERED: ASPIR 8181 MG PO (01:06)
[2018-08-10 04:00] VITALS: BP 128/67
[2018-08-10 04:17] LABS: ABSOLUTE EOSINOPHILS 0.2 thou/uL (0.0-0.7); ABSOLUTE LYMPHOCYTES 0.3 thou/uL (0.8-5.3); ABSOLUTE MONOCYTES 0.3 thou/uL (0.0-1.2); ABSOLUTE NEUTROPHILS 2.5 thou/uL (1.6-8.1); BASOPHILS 0.4 %; EOSINOPHILS 7.3 %; HEMATOCRIT 30.8 % (42.0-52.0); HEMOGLOBIN 10.9 gm/dL (14.0-18.0); LYMPHOCYTES 7.7 %; MCH 31.9 pg (26.0-34.0); MCHC 35.5 g/dL (28.0-37.0); MCV 89.8 fL (80.0-100.0); MONOCYTES 9.7 %; MPV 7.7 fl. (7.2-11.1); NUCLEATED RBCS 0 /100WBC; PLATELET COUNT* 75 thou/uL (150-400); POLYS 74.9 %; RBC 3.43 mil/uL (4.50-6.00); WBC 3.3 thou/uL (4.0-11.0)
[2018-08-10 04:25] LABS: APTT 34.4 Seconds (25.0-31.3); PROTIME 10.6 Seconds (9.20-11.50)
[2018-08-10 04:30] LABS: ALBUMIN 2.3 g/dL (3.4-5.0); POTASSIUM 4.1 mmol/L (3.5-5.1); TOTAL BILIRUBIN 0.8 mg/dL (<0.1-1.0); TOTAL PROTEIN 4.9 g/dL (6.4-8.2)
[2018-08-10 05:36] LABS: CALCIUM 7.3 mg/dL (8.5-10.1)
--- NOTE | 2018-08-10 07:45 | NUR ---
REPORT RECIEVED FROM ER. PT ORIENTED TO ROOM, CALL LIGHT SHOWN, FALL AGREEMENT WENT OVER, PT STATED UNDERSTANDING. ADMISSION DOCUMENTED WITH HELP FROM . MED LIST UPDATED. IV PATENT, FLUIDS INFUSING. TYLENOL GIVEN FOR HEADACHE. PT HAD A COUPLE EPISODES OF DIARRHEA THIS SHIFT. PT REQUESTED ZYPREXA SHOT THIS SHIFT SINCE HE STATES ATIVAN MAKES HIM ANGRY. NOTIFIED, PO ZYPREXA GIVEN PER E-MAR. TELE MONITOR IN PLACE READING SR/ V-PACED. WILL CONTINUE WITH PLAN OF CARE.
[2018-08-10 09:30] VITALS: BP 120/62
[2018-08-10 12:00] VITALS: BP 131/62
[2018-08-10 15:00] VITALS: BP 134/67
--- NOTE | 2018-08-10 17:46 | EKG ---
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 08/10/18 1746 181 12 Torito Rizzo MD, [facility] /EPI
[2018-08-10 20:40] VITALS: BP 124/56
[2018-08-11 00:49] VITALS: BP 140/63
[2018-08-11 04:31] VITALS: BP 137/61
[2018-08-11 05:10] LABS: HEMATOCRIT 30.5 % (42.0-52.0); HEMOGLOBIN 10.7 gm/dL (14.0-18.0); MCH 31.8 pg (26.0-34.0); MCHC 34.9 g/dL (28.0-37.0); MPV 7.6 fl. (7.2-11.1); RBC 3.36 mil/uL (4.50-6.00); RDW-CV 14.1 % (10.5-14.5); WBC 3.2 thou/uL (4.0-11.0)
--- NOTE | 2018-08-11 05:18 | NUR ---
PT A&O X4. SAO2 @ 97% BEGINING OF SHIFT. PT'S TEMP WAS 100.1 DEGREE FARENHEIT @2120. TYELNOL 650MG WAS GIVEN FOR TEMP. TEMP WENT DOWN 99.2 DEGREE FARENHEIT @ REASSESSMENT. PT RECEIVED FENTANYL X2 FOR HEADACHE DURING SHIFT. ACTIVAN 1MG GIVEN @ 5AM. ABX INFUSED ORDERED. PT DID NOT HAVE BM DURING SHIFT. PT WAS SINUS ARYTHMIA, HR IRREGULAR ON MONITOR. PT ON STANDY BY ASSIST DURING SHIFT. BED ALARM WAS ON DURING SHIFT, CALL LIGHT WITHIN REACH. PT CALLS OUT APPRORIATELY.
[2018-08-11 05:28] LABS: ALBUMIN 2.3 g/dL (3.4-5.0); CALCIUM 8.7 mg/dL (8.5-10.1); CREATININE 1.1 mg/dL (0.6-1.3); POTASSIUM 4.8 mmol/L (3.5-5.1); TOTAL BILIRUBIN 0.5 mg/dL (<0.1-1.0)
[2018-08-11 07:40] VITALS: BP 136/65
--- NOTE | 2018-08-11 11:49 | NUR ---
SW met with pt to complete initial assessment, introduce self, and SW role. Pt alert, oriented, complaining of headache and wanting to dc soon if possible. Pt has RW at home according to previous record. Pt live at home with his . Pt sister in law and a friend came to visit pt. SW to continue to follow to assist with safe dc planning.
[2018-08-11 11:55] VITALS: BP 151/69
[2018-08-11 12:44] LABS: % SATURATION 14 % (20-39); IRON 40 ug/dL (50-175)
[2018-08-11 16:18] VITALS: BP 151/65
--- NOTE | 2018-08-11 16:50 | NUR ---
PATIENT IS ALERT AND ORIENTED TODAY, VERY AGITATED AND VERBALLY AGRESSIVE THIS MORNING. AFTER TALKING PATIENT IS CALMER AND PLEASANT. VITAL SIGNS ARE STABLE ON ROOM AIR, UP AD RANDA ROOM. HEADACHE IS IMPROVING AND NO COMPLAINTS OF ABDOMINIAL PAIN TODAY. PATIENT TOLERATING DIET FINE, HAS BEEN SITTING IN CHAIR MOST OF THE DAY. FAMILY HAS BEEN AT BEDSIDE PART OF THE DAY. TRYING TO KEEP ROOM QUIET AND DARKENED TO HELP HEAD ACHE. CALL LIGHT IS IN REACH, WILL CONTINUE TO MONITOR.
[2018-08-11 19:50] VITALS: BP 133/58
[2018-08-12 00:30] VITALS: BP 160/59
[2018-08-12 03:52] VITALS: BP 139/61
[2018-08-12 04:39] LABS: HEMATOCRIT 32.2 % (42.0-52.0); HEMOGLOBIN 11.1 gm/dL (14.0-18.0); MCH 31.9 pg (26.0-34.0); MCHC 34.4 g/dL (28.0-37.0); MCV 92.8 fL (80.0-100.0); MPV 7.6 fl. (7.2-11.1); RBC 3.47 mil/uL (4.50-6.00); RDW-CV 14.7 % (10.5-14.5); WBC 3.4 thou/uL (4.0-11.0)
[2018-08-12 04:59] LABS: ALBUMIN 2.5 g/dL (3.4-5.0); CALCIUM 8.6 mg/dL (8.5-10.1); CREATININE 1.4 mg/dL (0.6-1.3); MAGNESIUM 1.2 mg/dL (1.8-2.4); POTASSIUM 4.6 mmol/L (3.5-5.1); TOTAL BILIRUBIN 0.6 mg/dL (<0.1-1.0); TOTAL PROTEIN 5.1 g/dL (6.4-8.2)
--- NOTE | 2018-08-12 06:27 | NUR ---
AT 0522, PT STATES "I THINK MY HEADACHE IS GIVING ME CHEST PAIN". ECG DONE AND ATTACHED TO PT'S CHART SHOWED ATRIAL-PACED COMPLEXES. VS DONE AT THIS TIME SHOWED BP @ 140/71, HR 68. PT RECIEVED TYLENOL AND ACTIVAN AT THIS TIME. PT REASSESSED 40 MINUTES LATER AND WAS ASLEEP. CALL LIGHT WITHIN REACH.
--- NOTE | 2018-08-12 06:34 | NUR ---
PT A&O X4. SAO2 96% RA. PT COMPLAINED OF GREGG AT INTERVALS DURING THE NIGHT. MEDS WERE GIVEN, RELIEFS WERE NOTED DURING REASSESSMENTS. PT RECIEVED ZOFRAN AT NIGHT FOR FEELING OF NAUSEA, RELIEF WAS NOTED ON REASSEMENT. PT SAYS HE WAS ABLE TO GET 2-HOUR INTERVALS OF SLEEP. MG REPLACEMENT PROTOCOL WAS INITIATED FOR MG LEVEL OF 1.2. PT RECEIVED 400MG PO THIS AM. PT WAS PLEASANT AND APPROPRIATE DURING SHIFT. CALL LIGHT WITHIN REACH. WILL CONTINUE PLAN OF CARE.
[2018-08-12 07:28] VITALS: BP 136/60
--- NOTE | 2018-08-12 09:53 | CON ---
[address] [address] CONSULTATION Name: MEENURYANDESTINYMAIRA DONNELLY Room: [address] ADM IN M.R.#: [id number] Admission: 08/09/18 Attend Phys: Destinee Burris MD Discharge: Date of : 48 Report #: [id number] THIS REPORT FOR: //name// CC: Silke Burris DATE OF SERVICE: 08/11/2018 HISTORY OF PRESENT ILLNESS: This is a 68-year-old male patient who was evaluated by me for headache. This patient gives a history that he has this headache going on for 4-5 months. It is bilateral headache associated with some blurring of the vision. It intermittently becomes worse, but it is present virtually the whole day. It started spontaneously. He does not know any aggravating or relieving factors for these headaches. I reviewed his record, he had a sed rate in June of last year and that was normal. He had these headaches even before this. He does have a pacemaker, but he thinks it is MRI compatible. Review of his records indicate he had a prior psychiatric consult also. He had a pretty major depressive disorder. He has been seen by Dr. Arreguin in the past, but he said this headache has become worse in the last 4-5 months. REVIEW OF SYSTEMS: Indicate the patient is having a GI problem. He is a very poor candidate for anything. He has seen multiple other physicians in the past that include physician for thrombocytopenia. He is complaining of nonspecific visual symptom. He does not complain of any new eye symptom. He is complaining of abdominal symptom. He does not have any chest pain or respiratory difficulty. He denies any musculoskeletal, constitutional, dermatological, hematological, throat symptom. He does have psychiatric history in the past. PAST MEDICAL HISTORY: Positive for headache. He is a poor historian. FAMILY HISTORY: Negative for early age stroke. SOCIAL HISTORY: I reviewed his social history. His has provided history that he used to be alcoholic at one time at least. PHYSICAL EXAMINATION: Indicate the patient is alert, responsive, able to follow simple and complex command. His cranial nerve examination 2-12 looks mostly unremarkable. I could not look at his fundus. He moves all 4 extremities. Strength, sensation, reflexes and tone is symmetrical. His position sense is intact. His pulses are difficult to feel. He has no cerebellar sign. There is no meningeal sign. There is no thyroid mass. He is moderately built individual. He does not have any dysmorphic features of eyes, ears and face. His vision and hearing looks adequate. Cardiac examination is unremarkable. He does have some respiratory difficulty. Blood pressure is 151/69, respirations 16, pulse is 71, temperature is 98.2. He did have a CT scan of the head, [place] [address] CONSULTATION Name: DESTINY MENDES Room: [address] IN [facility]#: [id number] Admission: 08/09/18 Attend Phys: Destinee Burris MD Discharge: Date of : 48 Report #: [id number] was unremarkable. He had an MRI in the past. There does not appear to be showing any definite abnormality, which can explain the symptoms. IMPRESSION: This patient is complaining of chronic headache. Part of it may be vascular headache. Part of it may be muscle contraction headache. He said it has become worse, so we will see if we can change something. RECOMMENDATIONS: 1. I discussed with him Topamax and its potential complications including glaucoma and stone. He understands that he is willing to take that complication. We will try Topamax and see how it works. We will try a small dose. 2. We will try Topamax. We will repeat the sed rate and we will follow up. I would like to do an MRI that has to be set because of his pacemaker and I will also do an MRV at the same time. <ELECTRONICALLY SIGNED> By: Hardik Jenkins MD 08/12/18 0953 1528 [id number] Jenkins MD /nt
[2018-08-12] MEDS ORDERED: TOPAMAX 25 MG T25 M1 PO (11:30)
[2018-08-12] MEDS ORDERED: AMOX TR-K CLV1 EAC3 PO (11:30)
[2018-08-12 12:49] VITALS: BP 136/60
[2018-08-12 13:55] VITALS: BP 136/59
[2018-08-12 14:30] VITALS: BP 136/60
--- NOTE | 2018-08-12 15:23 | NUR ---
ASSUMED CARE AT 0730. ALERT ORIENTED PLEASANT COOPERAYIVE. HX OF ALTERED MENTAL STATUS AND HYPONATREMIA. C/O HEADACHE RATES A 10 ON PAIN SCALE MEDICATED WITH FENTANYL IV PUSH X 1 WITH SOME RELIEF STATED. HAD ULTRASOUND ABDOMEN SPLEEN THIS A.M. C/O STOMACH PAIN AFTER EATING BREAKFAST. SL PATENT FOR IV ANTIBIOTICS. HAD A SMALL BM THIS AFTERNOON AFTER MIRALAX TAKEN. DR. BERNSTEIN AND MAURILIO ROUNDED. PT. IS TO BE DISCHARGED THIS AFTERNOON. DISCHARGED WITH BELONGINGS AND D/C INSTRUCTIONS AT 1430 TO HOME. APPETITE GOOD AT LUNCH. .
--- NOTE | 2018-08-12 17:08 | EKG ---
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1950 Requested By: Pelon German Order Number: [id number] Rosibel MD: Denny Hodge Measurements Intervals [place] Rate: 70 P: AR: 159 QRS: -11 QRSD: 103 T: 56 QT: 398 QTc: 430 Interpretive Statements Atrial-paced complexes Borderline low voltage, extremity leads Compared to ECG 08/09/2018 18:13:03 No significant changes Electronically Signed On 08-12-2018 17:08:12 CDT by Denny Hodge [email or web address] <ELECTRONICALLY SIGNED> By: Denny Hodge MD, [facility] 08/12/18 1708 0558 0558 Denny Hodge MD, [facility] /EPI
--- NOTE | 2018-08-14 15:33 | CON ---
[address] [address] CONSULTATION Name: VAUGHNDESTINYMAIRA DONNELLY Room: [address] IN M.R.#: [id number] Admission: 08/09/18 Attend Phys: Destinee Burris MD Discharge: 08/12/18 Date of : 48 Report #: [id number] THIS REPORT FOR: //name// CC: Silke Burris DATE OF SERVICE: 08/12/2018 REQUESTING PHYSICIAN: Dr. Burris REASON FOR CONSULTATION: Pancytopenia. HISTORY OF PRESENT ILLNESS: The patient is a 68-year-old man with multiple medical problems, including a history of depression, suicide attempts, alcohol abuse, and hypertension, who has been admitted to the hospital three times for recurrent diverticulitis. He was admitted to the hospital again with recurrent abdominal pain and migraine headaches. He was found to have some mild pancytopenia on this admission. Hematology consult is requested. The patient is not a very good historian, he does not cooperate in giving the history. He says he has migraine headaches, nothing else bothers him. He says he has not had alcohol for many years and he has never done "too much alcohol or anything else." He does not have a history of weight loss or profuse night sweats. PAST MEDICAL HISTORY: See above. As noted in the chart. 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 REVIEW OF SYSTEMS: See above. PHYSICAL EXAMINATION: GENERAL: Reveals an overweight man, not in acute distress. VITAL SIGNS: Blood pressure 179/61, heart rate is 72, temperature 98.1, respirations 18. HEENT: Does not reveal thrush. HEART: Normal S1, S2. LUNGS: No wheezing. EXTREMITIES: No edema. SKIN: Does not reveal rash. LYMPHATICS: There is no supraclavicular or axillary lymphadenopathy. LABORATORY AND DIAGNOSTIC DATA: White count 3.4, hemoglobin 9.1, platelets 103. Differential is unremarkable other than . Sodium 139, potassium 4.6, BUN 12, creatinine 1.4, alkaline phosphatase 180, ALT 60, total protein 5.1, albumin 2.5, . B12 and folate are normal. TSH is normal. ASSESSMENT AND PLAN: Pancytopenia, very mild. I am planning to order ultrasound of the abdomen, most likely cause of mild [place] [address] CONSULTATION Name: DESTINY MENDES Room: [address]#: [id number] Admission: 08/09/18 Attend Phys: Destinee Burris MD Discharge: 08/12/18 Date of : 48 Report #: [id number] history of alcohol abuse. The patient denies alcohol abuse, although alcohol abuse. Continue to monitor the CBC. Thank you very much for allowing me to participate in the care of this patient. I will follow the patient with you. <ELECTRONICALLY SIGNED> By: Alice Austin MD 08/14/18 1533 0724 0932Alice Austin MD /nt
== END 2018-08-12 14:30 | disposition home or self-care (01) | DRG 392 ==
LOC: M.ERS 17:23 → M.3W 20:20 → M.TBA-ER 20:20 → M.3W 22:36
PROVIDERS: Internal Medicine; Nurse Practitioner Adult Health; Physician Assistant; ADMIT Family Medicine
DX: K57.32 Diverticulitis of large intestine without perforation or abscess without bleeding (principal); E87.1 Hypo-osmolality and hyponatremia; D61.818 Other pancytopenia; I50.9 Heart failure, unspecified; K21.9 Gastro-esophageal reflux disease without esophagitis; F41.9 Anxiety disorder, unspecified; G43.909 Migraine, unspecified, not intractable, without status migrainosus; I48.91 Unspecified atrial fibrillation; E66.01 Morbid (severe) obesity due to excess calories; G47.33 Obstructive sleep apnea (adult) (pediatric); R25.1 Tremor, unspecified; I11.0 Hypertensive heart disease with heart failure; E11.9 Type 2 diabetes mellitus without complications; E78.5 Hyperlipidemia, unspecified; F32.9 Major depressive disorder, single episode, unspecified; E03.9 Hypothyroidism, unspecified; F10.10 Alcohol abuse, uncomplicated; Z87.11 Personal history of peptic ulcer disease; Z91.040 Latex allergy status; Z90.49 Acquired absence of other specified parts of digestive tract; Z93.0 Tracheostomy status; Z98.84 Bariatric surgery status; Z95.0 Presence of cardiac pacemaker; Z87.891 Personal history of nicotine dependence; Z68.33 Body mass index [BMI] 33.0-33.9, adult; Z79.899 Other long term (current) drug therapy

== ENCOUNTER 2018-11-23 07:40 | Emergency (ER) | payer OTHER, MEDICARE ==
[~2018-11-23] VITALS: Ht 177.8 cm; Wt 108.9 kg
[~2018-11-23 07:40] MED LIST changes: +AMOX TR-K CLV1 EAC3 PO; +ASPIR 8181 MG PO; +DEPAKOTE500 MG PO; +NEXIUM40 MG PO; +PRINIVIL10 MG PO; +TOPAMAX 25 MG T25 M1 PO; +TRAZODONE HCL100 MG PO; +ZYPREXA ZYDIS10 MG PO
[2018-11-23 08:26] LABS: URINE COLOR ORANGE
[2018-11-23 08:27] LABS: URINE CLARITY CLEAR; URINE PROTEIN ND (Negative); URINE SPECIFIC GRAVITY 1.028 (1.005-1.030)
[2018-11-23 08:28] LABS: ACETEST (KETONE CONFIRMATORY) Negative (Negative); URINE BILIRUBIN ND (Negative); URINE GLUCOSE-RANDOM ND (Negative); URINE KETONES ND (Negative); URINE REDUCING SUBSTANCE ND % (Negative)
[2018-11-23 08:29] LABS: ICTOTEST (BILI CONFIRMATORY) ND (Negative); URINE BLOOD ND (Negative); URINE NITRITE-REFLEX ND (Negative)
[2018-11-23 08:30] LABS: URINE LEUKOCYTES-REFLEX ND (Negative); URINE UROBILINOGEN ND E.U./dl (0.2-1.0)
[2018-11-23 08:31] LABS: SQUAMOUS 4-10 Moderate /LPF (0-3); URINE WBC-REFLEX >25 Many /HPF (0-5)
[2018-11-23 08:32] LABS: URINE RBC 3-10 Few /HPF (0-2); WBC CLUMPS Moderate (None Seen)
[2018-11-23 08:34] LABS: CASTS None Seen /LPF (None Seen); CRYSTALS None Seen /LPF (None Seen); MUCUS 4-6 Moderate strn/LPF (None Seen)
[2018-11-23 08:42] LABS: CALCIUM 9.1 mg/dL (8.5-10.1); CREATININE 1.5 mg/dL (0.6-1.3)
[2018-11-23] MEDS ORDERED: KEFLEX500 M1 PO (08:48)
[2018-11-23] MEDS ORDERED: NORCO 5-325 TA1 EAC1 PO (08:48)
[2018-11-23 08:54] VITALS: BP 130/80
== END 2018-11-23 08:55 | disposition home or self-care (01) ==
LOC: M.ERS 07:40
PROVIDERS: Emergency Medicine Emergency Medical Services
DX: N39.0 Urinary tract infection, site not specified (principal); I50.9 Heart failure, unspecified; G43.909 Migraine, unspecified, not intractable, without status migrainosus; K21.9 Gastro-esophageal reflux disease without esophagitis; F41.0 Panic disorder [episodic paroxysmal anxiety]; I95.1 Orthostatic hypotension; Z96.651 Presence of right artificial knee joint; Z90.49 Acquired absence of other specified parts of digestive tract; Z91.040 Latex allergy status; Z98.890 Other specified postprocedural states

== ENCOUNTER 2019-04-20 10:43 | Emergency (ER) | payer OTHER, MEDICARE ==
[~2019-04-20] VITALS: Ht 177.8 cm; Wt 110.2 kg
[~2019-04-20 10:43] MED LIST changes: +KEFLEX500 M1 PO; +NORCO 5-325 TA1 EAC1 PO
[2019-04-20] MEDS ORDERED: NEURONTIN 300M300 M2 PO (10:57)
[2019-04-20] MEDS ORDERED: OLANZAPINE15 M1 PO (10:58)
[2019-04-20] MEDS ORDERED: SLOW FE142 MG PO (10:59)
[2019-04-20 11:33] LABS: ABSOLUTE EOSINOPHILS 0.2 thou/uL (0.0-0.7); ABSOLUTE LYMPHOCYTES 1.3 thou/uL (0.8-5.3); ABSOLUTE MONOCYTES 0.5 thou/uL (0.0-1.2); ABSOLUTE NEUTROPHILS 2.6 thou/uL (1.6-8.1); BASOPHILS 0.9 %; EOSINOPHILS 4.8 %; HEMOGLOBIN 14.6 gm/dL (14.0-18.0); MCH 31.4 pg (26.0-34.0); MCV 92.2 fL (80.0-100.0); MONOCYTES 9.8 %; MPV 7.3 fl. (7.2-11.1); NUCLEATED RBCS 0 /100WBC; PLATELET COUNT* 170 thou/uL (150-400); POLYS 56.5 %; RBC 4.66 mil/uL (4.50-6.00); RDW-CV 16.9 % (10.5-14.5); WBC 4.7 thou/uL (4.0-11.0)
[2019-04-20 11:43] LABS: CALCIUM 8.1 mg/dL (8.5-10.1); CREATININE 1.2 mg/dL (0.6-1.3); POTASSIUM 4.1 mmol/L (3.5-5.1)
[2019-04-20 11:53] LABS: ALBUMIN 3.5 g/dL (3.4-5.0); TOTAL BILIRUBIN 0.3 mg/dL (<0.1-1.0); TOTAL PROTEIN 6.5 g/dL (6.4-8.2)
[2019-04-20] MEDS ORDERED: LEVAQUIN 750 M750 MG PO (13:25)
[2019-04-20 13:53] VITALS: BP 148/76
--- NOTE | 2019-04-21 10:56 | EKG ---
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1950 Requested By: Gage Becerra Order Number: [id number] MD: Denny Hodge Measurements Intervals [place] Rate: 66 P: 185 TN: 187 QRS: -75 QRSD: 151 T: 92 QT: 436 QTc: 457 Interpretive Statements Atrial-paced complexes Left bundle-branch block Baseline wander in lead(s) I,III,aVR,aVL Compared to ECG 08/12/2018 05:58:03 No significant changes Electronically Signed On 04-21-2019 10:55:50 MANAGEMENT LIAISON by Denny Hodge [email or web address] <ELECTRONICALLY SIGNED> By: Denny Hodge MD, [facility] 04/21/19 1055 1122 1122 Denny Hodge MD, [facility] /EPI
== END 2019-04-20 13:54 | disposition home or self-care (01) ==
LOC: M.ERS 10:43
PROVIDERS: Emergency Medicine Emergency Medical Services
DX: J18.9 Pneumonia, unspecified organism (principal); R07.89 Other chest pain; I50.9 Heart failure, unspecified; I48.91 Unspecified atrial fibrillation; K21.9 Gastro-esophageal reflux disease without esophagitis; G43.909 Migraine, unspecified, not intractable, without status migrainosus; F41.9 Anxiety disorder, unspecified; Z96.651 Presence of right artificial knee joint; Z90.49 Acquired absence of other specified parts of digestive tract; Z95.0 Presence of cardiac pacemaker; Z91.040 Latex allergy status; Z91.048 Other nonmedicinal substance allergy status

== ENCOUNTER 2019-05-12 10:02 | Observation (INO) | payer OTHER, MEDICARE ==
[~2019-05-12] VITALS: Ht 180.3 cm; Wt 115.7 kg
[~2019-05-12 10:02] MED LIST changes: +LEVAQUIN 750 M750 MG PO; +NEURONTIN 300M300 M2 PO; +OLANZAPINE15 M1 PO; +SLOW FE142 MG PO
[2019-05-12 10:09] VITALS: BP 213/93
[2019-05-12] MEDS ORDERED: LUNESTA3 MG PO (10:17)
[2019-05-12 10:58] LABS: ABSOLUTE EOSINOPHILS 0.4 thou/uL (0.0-0.7); ABSOLUTE LYMPHOCYTES 1.8 thou/uL (0.8-5.3); ABSOLUTE MONOCYTES 0.6 thou/uL (0.0-1.2); BASOPHILS 0.7 %; EOSINOPHILS 6.5 %; HEMATOCRIT 42.3 % (42.0-52.0); HEMOGLOBIN 14.6 gm/dL (14.0-18.0); LYMPHOCYTES 31.4 %; MCH 32.5 pg (26.0-34.0); MCHC 34.4 g/dL (28.0-37.0); MCV 94.4 fL (80.0-100.0); MONOCYTES 10.6 %; MPV 7.1 fl. (7.2-11.1); NUCLEATED RBCS 0 /100WBC; PLATELET COUNT* 149 thou/uL (150-400); POLYS 50.8 %; RBC 4.48 mil/uL (4.50-6.00); RDW-CV 15.4 % (10.5-14.5); WBC 5.8 thou/uL (4.0-11.0)
[2019-05-12 11:07] LABS: CREATININE 1.2 mg/dL (0.6-1.3); POTASSIUM 4.2 mmol/L (3.5-5.1)
[2019-05-12 11:11] LABS: INFLUENZA A ANTIGEN Negative (Negative); INFLUENZA B ANTIGEN Negative (Negative)
[2019-05-12 11:18] LABS: ALBUMIN 3.5 g/dL (3.4-5.0); TOTAL BILIRUBIN 0.3 mg/dL (<0.1-1.0); TOTAL PROTEIN 6.5 g/dL (6.4-8.2)
--- NOTE | 2019-05-12 11:57 | EKG ---
[place] [address] ELECTROCARDIOGRAM REPORT Name: DESTINY MENDES Room: [place] [address] ADM IN [facility].#: [id number] Admission: 05/12/19 Attend Phys: Guero Norton MD Discharge: Date of : 48 Report #: [id number] THIS REPORT FOR: //name// 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 : 1950 Requested By: Patricia Bradshaw Order Number: [id number] MD: Denny Hodge Measurements Intervals [place] Rate: 71 P: [place]: 241 QRS: -25 QRSD: 130 T: 67 QT: 435 QTc: 473 Interpretive Statements Atrial-paced complexes Prolonged [place] interval Left bundle branch block Compared to ECG 04/20/2019 11:22:21 First degree AV block now present Electronically Signed On 05-12-2019 11:56:51 [employer] IN [employer]ENCE by Denny Hodge [email or web address] <ELECTRONICALLY SIGNED> By: Denny Hogde MD, FACC 05/12/19 1156 1037 1037 Denny Hodge MD, FAC /EPI
--- NOTE | 2019-05-12 12:44 | 2DMMODE ---
[place] [address] 2 D/M-MODE ECHOCARDIOGRAM Name: DESTINY MENDES Room: [place] [address] ADM IN [facility]#: [id number] Admission: 05/12/19 Attend Phys: Guero Norton, Discharge: Date of : 48 Date of Service: 05/12/19 1244 Report #: [id number] THIS REPORT FOR: //name// APPROVED REPORT Study performed: 05/12/2019 12:03:05 EXAM: Comprehensive 2D, Doppler, and color-flow Echocardiogram Patient Location: In-Patient Room #: er Status: routine BSA: 2.30 HR: 60 bpm BP: 201/93 mmHg Rhythm: NSR Other Information Study Quality: Good Indications Congestive Heart Failure 2D Dimensions IVSd: 9.83 (7-11mm) LVDd: 53.93 mm PWd: 9.30 (7-11mm) Ascending Ao: 34.73 (22-36mm) LVDs: 25.01 (25-40mm) Volumes Left Atrial Volume (Systole) LA ESV Index: 21.60 mL/m2 Aortic Valve AoV Peak Kenyon.: 1.55 m/s AO Peak Gr.: 9.64 mmHg LVOT Max P.08 mmHg AO Mean Gr.: 5.61 mmHg LVOT Mean P.03 mmHg LVOT Max V: 1.01 m/s AO V2 VTI: 28.66 cm LVOT Mean V: 0.66 m/s LVOT V1 VTI: 18.55 cm Mitral Valve E/A Ratio: 0.62 MV Decel. Time: 267.28 ms MV E Max Kenyon.: 0.65 m/s MV PHT: 77.51 [place] [address] 2 D/M-MODE ECHOCARDIOGRAM Name: DESTINY MENDES Room: [place] [address] ADM IN .R.#: [id number] Admission: 05/12/19 Attend Phys: Guero Norton, Discharge: Date of : 48 Date of Service: 05/12/19 1244 Report #: [id number] MVA (PHT): 2.84 cm2 TDI E/Lateral E': 8.13 E/Medial E': 10.83 Medial E' Kenyon.: 0.06 m/s Lateral E' Kenyon.: 0.08 m/s Pulmonary Valve PV Peak Kenyon.: 0.90 m/s PV Peak Gr.: 3.21 mmHg Left Ventricle The left ventricle is normal size. There is normal LV segmental wall motion. There is normal left ventricular wall thickness. Left ventricular systolic function is normal. LVEF is 65-70%. Grade I - abnormal relaxation pattern. Right Ventricle The right ventricle is normal size. The right ventricular systolic function is normal. Atria The left atrium size is normal. The right atrium size is normal. Aortic Valve Mild aortic valve sclerosis. No aortic regurgitation is present. There is no aortic valvular stenosis. Mitral Valve The mitral valve is normal in structure. There is no mitral valve regurgitation noted. No evidence of mitral valve stenosis. Tricuspid Valve The tricuspid valve is normal in structure. Unable to assess PA pressure. Trace tricuspid regurgitation. Pulmonic Valve The pulmonary valve is normal in structure. There is no pulmonic valvular regurgitation. Great Vessels The aortic root is normal in size. IVC is normal in size and collapses >50% with inspiration. Pericardium There is [place] [address] 2 D/M-MODE ECHOCARDIOGRAM Name: DESTINY MENDES ANDRZEJ Room: [address] IN ..#: [id number] Admission: 05/12/19 Attend Phys: Guero Norton, Discharge: Date of : 48 Date of Service: 05/12/19 1244 Report #: [id number] <Conclusion> The left ventricle is normal size. There is normal left ventricular wall thickness. Left ventricular systolic function is normal. LVEF is 65-70%. Grade I - abnormal relaxation pattern. Mild aortic valve sclerosis. Trace tricuspid regurgitation. IVC is normal in size and collapses >50% with inspiration. <ELECTRONICALLY SIGNED> By: Denny Hodge MD, FACC 05/12/19 1244 1244 1244 Denny Hodge MD, FACC /INF
[2019-05-12 13:33] VITALS: BP 164/90
[2019-05-12 15:12] VITALS: BP 149/87
[2019-05-12 16:00] VITALS: BP 153/80
--- NOTE | 2019-05-12 17:39 | NUR ---
PT REMAINED ALERT AND ORIENTED. PT RESTING IN BED. PT DENIES ANY PAIN AT THIS TIME. FALL RISK PRECAUTIONS IN PLACE. HOURLY ROUNDING COMPLETED. WILL CONTINUE TO MONITOR.
[2019-05-12 21:04] VITALS: BP 132/73
[2019-05-13 04:19] LABS: HEMATOCRIT 43.7 % (42.0-52.0); MCH 32.1 pg (26.0-34.0); MCHC 34.4 g/dL (28.0-37.0); MCV 93.3 fL (80.0-100.0); NUCLEATED RBCS 0 /100WBC; PLATELET COUNT* 152 thou/uL (150-400); RBC 4.68 mil/uL (4.50-6.00); RDW-CV 15.4 % (10.5-14.5); WBC 5.9 thou/uL (4.0-11.0)
[2019-05-13 04:32] LABS: CALCIUM 9.2 mg/dL (8.5-10.1); CREATININE 1.3 mg/dL (0.6-1.3); POTASSIUM 3.9 mmol/L (3.5-5.1)
--- NOTE | 2019-05-13 05:07 | NUR ---
ASSUMED CARE OF PT 05/12/19 AT APPROX 1930, PT A&OX4, PT ON ROOM AIR, VSS, MUSCLE RELAXANT MEDS REQUESTED AND GIVEN ORDERED, FALL PRECAUTIONS IN PLACE, WILL CONTINUE TO MONITOR.
[2019-05-13 06:51] LABS: ABSOLUTE EOSINOPHILS 0.1 thou/uL (0.0-0.7); ABSOLUTE LYMPHOCYTES 0.5 thou/uL (0.8-5.3); ABSOLUTE MONOCYTES 0.1 thou/uL (0.0-1.2); ABSOLUTE NEUTROPHILS 5.3 thou/uL (1.6-8.1)
[2019-05-13 06:52] LABS: PLATELET ESTIMATE ADEQUATE
[2019-05-13 07:40] VITALS: BP 143/77
[2019-05-13 09:00] VITALS: BP 132/73
[2019-05-13 09:27] VITALS: BP 132/73
--- NOTE | 2019-05-13 09:27 | NUR ---
PT GIVEN DISCHARGE INFORMATION. IV REMOVED. PT BELONGINGS GATHERED. FALL RISK PRECAUTIONS IN PLACE. HOURLY ROUNDING COMPLETED. PT LEFT [facility] NURSING STAFF TO HOME.
== END 2019-05-13 09:28 | disposition home or self-care (01) ==
LOC: M.ERS 10:02 → M.TBA-ER 11:39 → M.ORTHSURG 11:39
PROVIDERS: Nurse Practitioner Family; ADMIT Internal Medicine
DX: J40 Bronchitis, not specified as acute or chronic (principal); R05 Cough; R09.89 Other specified symptoms and signs involving the circulatory and respiratory systems; I16.0 Hypertensive urgency; R60.9 Edema, unspecified; F41.9 Anxiety disorder, unspecified; F32.9 Major depressive disorder, single episode, unspecified; F43.10 Post-traumatic stress disorder, unspecified; I95.1 Orthostatic hypotension; I48.91 Unspecified atrial fibrillation; Z90.49 Acquired absence of other specified parts of digestive tract

== ENCOUNTER 2019-11-06 11:17 | Inpatient (IN) | payer OTHER, MEDICARE ==
[2019-11-06] VITALS (8 sets, daily range): BP systolic 117–143; BP diastolic 65–91
[~2019-11-06] VITALS: Ht 180.3 cm; Wt 124.4 kg
[~2019-11-06 11:17] MED LIST changes: +LUNESTA3 MG PO
--- NOTE | 2019-11-06 11:50 | NUR ---
PT WAS TAKEN TO CT AFTER LABS WERE DRAWN.
[2019-11-06 11:58] LABS: ABSOLUTE BASOPHILS 0.1 thou/uL (0.0-0.2); ABSOLUTE EOSINOPHILS 0.3 thou/uL (0.0-0.7); ABSOLUTE LYMPHOCYTES 2.1 thou/uL (0.8-5.3); ABSOLUTE MONOCYTES 1.1 thou/uL (0.0-1.2); ABSOLUTE NEUTROPHILS 5.2 thou/uL (1.6-8.1); BASOPHILS 1.1 %; EOSINOPHILS 3.3 %; HEMATOCRIT 48.6 % (42.0-52.0); HEMOGLOBIN 16.9 gm/dL (14.0-18.0); MCH 33.2 pg (26.0-34.0); MCHC 34.8 g/dL (28.0-37.0); MCV 95.6 fL (80.0-100.0); MONOCYTES 12.2 %; MPV 7.2 fl. (7.2-11.1); NUCLEATED RBCS 0 /100WBC; PLATELET COUNT* 195 thou/uL (150-400); POLYS 59.4 %; RBC 5.08 mil/uL (4.50-6.00); RDW-CV 13.4 % (10.5-14.5); WBC 8.8 thou/uL (4.0-11.0)
[2019-11-06 12:01] LABS: CREATININE 1.5 mg/dL (0.6-1.3); POTASSIUM 4.4 mmol/L (3.5-5.1)
[2019-11-06 12:03] LABS: APTT 27.2 Seconds (25.0-31.3); INR 1.1; PROTIME 11.2 Seconds (9.20-11.50)
[2019-11-06 12:05] LABS: ALBUMIN 3.7 g/dL (3.4-5.0); TOTAL BILIRUBIN 0.6 mg/dL (<0.1-1.0); TOTAL PROTEIN 7.2 g/dL (6.4-8.2)
[2019-11-06 12:10] LABS: URINE BILIRUBIN NEGATIVE (Negative); URINE BLOOD NEGATIVE (Negative); URINE CLARITY CLEAR; URINE COLOR YELLOW; URINE GLUCOSE-RANDOM NEGATIVE (Negative); URINE KETONES NEGATIVE (Negative); URINE LEUKOCYTES-REFLEX NEGATIVE (Negative); URINE NITRITE-REFLEX NEGATIVE (Negative); URINE PROTEIN NEGATIVE (Negative); URINE SPECIFIC GRAVITY 1.015 (1.005-1.030); URINE UROBILINOGEN 0.2 E.U./dl (0.2-1.0)
--- NOTE | 2019-11-06 13:43 | EKG ---
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
--- NOTE | 2019-11-06 13:59 | NUR ---
UNABLE TO COMPLETE DISCHARGE VITAL DOCUMENTATION IN DISCHARGE SECTION. COMPLETED VITALS IN REASSESSMENT AREA AT DISCHARGE TIME. PT WAS TAKE TO THE FLOOR VIA STRETCHER ACCOMPANIED BY RN AND ON A MONITOR. PT V/S WERE STABLE DURING TRANSPORT AND UPON DELIVERY TO THE FLOOR. REPORT WAS COMPLETED DOCUMENTED.
--- NOTE | 2019-11-06 15:44 | NUR ---
PT ADMITTED TO ROOM 232 VIA CART FROM ED AT APPROX 1405, REPORT RECEIVED FROM STEPHANIE JOEL. PT STATES HE HAD A SYNCOPAL EPISODE AND FELL AT HOME, HITTING HIS HEAD, NECK AND BACK ON THE WAY DOWN. PT HAS HAD 3 FALLS THIS MONTH FROM R/T SYNCOPAL EPISODES AND STATES HIS BP DROPS WHEN HE GETS UP. PT ORIENTED TO ROOM AND CALL LIGHT, ADMISSION ASSESSMENT AND HX COMPLETED CHARTED. SEPSIS SCREENING COMPLETED, NEGATIVE. PT STATES HE'S NOT SURE WHAT MEDS HE TAKES BUT THAT HIS WILL BE HERE LATER AND SHE HELPS HIM WITH HIS MEDS. PT NOTED TO HAVE RED SPOT ON FOREHEAD, PRN MORPHINE GIVEN FOR PAIN. PT IS A&OX3, A LITTLE HARD OF HEARING IN HIS RT EAR R/T CURRENT EAR INFECTION. 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
--- NOTE | 2019-11-06 18:20 | NUR ---
NO ACUTE CHANGES THROUGHOUT SHIFT, UA ORDERED AND COLLECTED BY NURSING STAFF, SENT TO LAB. PT HAD NO FURTHER C/O PAIN, HOURLY ROUNDING OBSERVED, FALL PRECAUTIONS IN PLACE, LATEX ALLERGY NOTED AND PRECAUTIONS IN PLACE, CALL LIGHT W/IN REACH, WILL CONTINUE POC.
[2019-11-06 18:37] LABS: URINE BILIRUBIN NEGATIVE (Negative); URINE BLOOD NEGATIVE (Negative); URINE CLARITY CLEAR; URINE COLOR YELLOW; URINE GLUCOSE-RANDOM NEGATIVE (Negative); URINE KETONES NEGATIVE (Negative); URINE LEUKOCYTES-REFLEX NEGATIVE (Negative); URINE NITRITE-REFLEX NEGATIVE (Negative); URINE PROTEIN NEGATIVE (Negative); URINE UROBILINOGEN 0.2 E.U./dl (0.2-1.0)
[2019-11-07 02:59] VITALS: BP 128/80
--- NOTE | 2019-11-07 06:04 | NUR ---
PATIENT PROGRESSING TOWARDS GOALS: PATIENT HAD NO SYNCOPAL EPISODES THIS SHIFT. DENIES DIZZINESS AND LIGHTHEADNESS WHILE TRANSFERRING. PATIENT HAS FLAT AFFECT BUT IS APPROPRIATE WITH STAFF. CALL LIGHT WITHIN REACH
[2019-11-07 09:01] VITALS: BP 116/79
[2019-11-07 12:00] VITALS: BP 111/61
[2019-11-07 15:48] VITALS: BP 138/67
--- NOTE | 2019-11-07 16:40 | NUR ---
PT UP TO CHAIR FOR MOST OF DAY. TOLERATING PO WELL AND PROGRESSING TOWARDS GOALS. WILL CONTINUE TO ASSESS.
[2019-11-07 20:00] VITALS: BP 136/73
[2019-11-08] VITALS (7 sets, daily range): BP systolic 117–171; BP diastolic 69–78
--- NOTE | 2019-11-08 03:20 | NUR ---
PT ALERT ORIENTED. UP WITH STD BY ASSIST. TELEMETRY SHOWS AV PACED. GREGG AT HS. TYLENOL AND COLD WASHCLOTH TO FOREHEAD. RESTING QUIETLY THIS SHIFT. WCTM
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
--- NOTE | 2019-11-08 20:23 | NUR ---
ASSUMED PT CARE AT 0730, FULL ASSESSMENT DONE CHARTED. PT A/O X4, DENIES PAIN, ASKING FOR XANEX THIS AM HE TAKES IT AT HOME. UP WITH ASSIST, CALLS APPROPRIALTY FOR HELP. WAS EDUCATED ON USING WALKER AT HOME FOR SAFTY. PRESENT MOST OF THE DAY. ORDERED NEOSPORIN FOR ABRAISION TO THE FORHEAD. THIS IS SHALLOW, NOT DRAINING, WITH SMALL AMOUNT OF SCABBING PRESENT. VSS, AV PACED/SR ON THE MONITOR. REPORT GIVEN TO NEENA BROWN.
[2019-11-09 00:11] VITALS: BP 117/57
--- NOTE | 2019-11-09 02:18 | NUR ---
PT ALERT ORIENTED. UP TO BR WITH STAND BY ASSIT. PT REQUESTED PAIN MEDICATION FOR GREGG THAT WAS NOT TYLENOL. NOTIFED HYDROCODNE ORDERED AND GIVEN. TELEMETRY SHOWS SR. COVARRUBIAS
[2019-11-09 04:00] VITALS: BP 128/73
[2019-11-09 05:14] LABS: HEMATOCRIT 45.5 % (42.0-52.0); HEMOGLOBIN 16.1 gm/dL (14.0-18.0); MCH 33.2 pg (26.0-34.0); MCHC 35.5 g/dL (28.0-37.0); MCV 93.7 fL (80.0-100.0); RBC 4.85 mil/uL (4.50-6.00); RDW-CV 13.2 % (10.5-14.5)
[2019-11-09 05:33] LABS: ALBUMIN 3.3 g/dL (3.4-5.0); CALCIUM 8.6 mg/dL (8.5-10.1); CREATININE 1.3 mg/dL (0.6-1.3); MAGNESIUM 2.1 mg/dL (1.8-2.4); POTASSIUM 4.1 mmol/L (3.5-5.1); TOTAL BILIRUBIN 0.5 mg/dL (<0.1-1.0); TOTAL PROTEIN 6.5 g/dL (6.4-8.2)
[2019-11-09 08:00] VITALS: BP 108/67
[2019-11-09 11:30] VITALS: BP 121/73
--- NOTE | 2019-11-09 13:45 | 2DMMODE ---
[place] [address] 2 D/M-MODE ECHOCARDIOGRAM Name: DESTINY MENDES Room: [address] M.R.#: [id number] Admission: 11/07/19 Attend Phys: Vivienne Marquez, Discharge: Date of : 48 Date of Service: 11/09/19 1344 Report #: [id number] THIS REPORT FOR: cc: Nemo Patrick MD, Susan A. MD Holkins, John M. MD [facility] ~ APPROVED REPORT Study performed: 11/09/2019 10:55:07 EXAM: Comprehensive 2D, Doppler, and color-flow Echocardiogram Patient Location: In-Patient BSA: 2.24 HR: 77 bpm BP: 128/73 mmHg Other Information Study Quality: Fair Indications Syncope 2D Dimensions IVSd: 9.38 (7-11mm) LVOT Diam: 19.60 (18-24mm) LVDd: 49.43 mm PWd: 11.42 (7-11mm) Ascending Ao: 28.59 (22-36mm) LVDs: 27.12 (25-40mm) Aortic Root: 29.84 mm Volumes Left Atrial Volume (Systole) LA ESV Index: 15.20 mL/m2 Aortic Valve AoV Peak Kenyon.: 0.87 m/s AO Peak Gr.: 3.05 mmHg LVOT Max P.71 mmHg AO Mean Gr.: 1.84 mmHg LVOT Mean P.68 mmHg LVOT Max V: 0.65 m/s AO V2 VTI: 16.61 cm LVOT Mean V: 0.37 m/s COREY (VTI): 1.60 cm2 LVOT V1 VTI: 8.80 cm Mitral Valve E/A Ratio: 0.74 [place] [address] 2 D/M-MODE ECHOCARDIOGRAM Name: DESTINY MENDES Room: [address] .R.#: [id number] Admission: 11/07/19 Attend Phys: Vivienne Marquez, Discharge: Date of : 48 Date of Service: 11/09/19 1344 Report #: [id number] MV Decel. Time: 234.13 ms MV E Max Kenyon.: 0.40 m/s MV PHT: 67.90 ms MVA (PHT): 3.24 cm2 TDI E/Lateral E': 5.71 E/Medial E': 6.67 Medial E' Kenyon.: 0.06 m/s Lateral E' Kenyon.: 0.07 m/s Pulmonary Valve PV Peak Kenyon.: 0.82 m/s PV Peak Gr.: 2.67 mmHg Tricuspid Valve RAP Estimate: 5.00 mmHg TR Peak Gr.: 17.19 mmHg RVSP: 22.19 mmHg PA Pressure: 22.19 mmHg Left Ventricle The left ventricle is normal size. There is normal LV segmental wall motion. There is normal left ventricular wall thickness. The left ventricular systolic function is normal. The left ventricular ejection fraction is within the normal range. LVEF is 55%. Grade I - abnormal relaxation pattern. Right Ventricle The right ventricle is normal size. The right ventricular systolic function is normal. Atria The left atrium size is normal. Interatrial septum not well visualized. The right atrium size is normal. Aortic Valve The aortic valve is normal in structure. No aortic regurgitation is present. There is no aortic valvular stenosis. Mitral Valve The mitral valve is normal in structure. There is no mitral valve regurgitation noted. No evidence of mitral valve stenosis. Tricuspid Valve The tricuspid valve is normal in structure. Trace tricuspid regurgitation[place] [address] 2 D/M-MODE ECHOCARDIOGRAM Name: DESTINY MENDES Room: [address]#: [id number] Admission: 11/07/19 Attend Phys: Vivienne Marquez, Discharge: Date of : 48 Date of Service: 11/09/19 1344 Report #: [id number] The pulmonary valve is normal in structure. There is no pulmonic valvular regurgitation. Great Vessels The aortic root is normal in size. IVC is not well visualized. Pericardium There is no pericardial effusion. <Conclusion> The left ventricle is normal size. There is normal left ventricular wall thickness. The left ventricular systolic function is normal. The left ventricular ejection fraction is within the normal range. LVEF is 55%. Grade I - abnormal relaxation pattern. The right ventricle is normal size. The left atrium size is normal. The aortic valve is normal in structure. The mitral valve is normal in structure. The tricuspid valve is normal in structure. There is normal LV segmental wall motion. <ELECTRONICALLY SIGNED> By: Leif Ruiz MD, FACC 11/09/19 1344 1344 1344 Leif Ruiz MD, FACC /INF
[2019-11-09 16:00] VITALS: BP 145/71
--- NOTE | 2019-11-09 16:00 | NUR ---
PT.ALERT AND ORIENTED. LIVES WITH HIS . NO USE OF DME OR HX OF HH. SAID HE IS INDEPENDENT AT HOME BUT HAS BEEN PASSING OUT THE PAST MONTH. HE DOES NOT FEEL HE WILL HAVE DISCHARGE NEEDS.
[2019-11-09 19:50] VITALS: BP 138/82
[2019-11-10 00:26] VITALS: BP 135/74
[2019-11-10 04:00] VITALS: BP 123/70
--- NOTE | 2019-11-10 06:04 | NUR ---
PT ALERT AND ORIENTED. VSS ON RA. MEDS GIVEN PER EMAR. PT SLEPT WELL THIS SHIFT. DENIES N/V, PAIN. FALL PRECAUTION IN PLACE. CALL LIGHT WITHIN REACH. HOURLY ROUNDINGS MADE. WILL CONTINUE TO MONITOR.
[2019-11-10 08:30] VITALS: BP 119/59
[2019-11-10 08:32] VITALS: BP 107/55
[2019-11-10 08:35] VITALS: BP 132/73
[2019-11-10] MEDS ORDERED: MIDODRINE HCL 55 M1 PO (10:27)
[2019-11-10] MEDS ORDERED: SINEMET 10-1001 EAC1 PO (10:27)
[2019-11-10 11:14] VITALS: BP 132/73
--- NOTE | 2019-11-10 12:00 | NUR ---
PT.TO DISCHARGE HOME WITH HH TODAY. HE DID NOT HAVE A PREFERENCE ON HH AGENCIES. ALBERT FAXED REFERRAL INFORMATION AND DISCHARGE SUMMARY TO [facility] AT [phone]. YASSINE FROM [facility] CALLED AND SAID THEY RECEIVED ORDERS AND WOULD ACCEPT PT.ON SERVICE. THEY WILL CALL AND SEE HIM TOMORROW.
--- NOTE | 2019-11-11 12:39 | CON ---
[address] [address] CONSULTATION Name: DESTINY MENDES Room: [address] IN M.R.#: [id number] Admission: 11/07/19 Attend Phys: Vivienne Marquez MD Discharge: 11/10/19 Date of : 48 Report #: [id number] THIS REPORT FOR: //name// cc: Nemo Patrick MD, Susan A. MD ~ THIS REPORT FOR: //name// CC: Vivienne Patrick DATE OF SERVICE: 11/06/2019 HISTORY OF PRESENT ILLNESS: This is a 69-year-old male patient who was evaluated by me for any neurological etiology for the patient's syncope. He has a longstanding problem with syncope. He has a known postural hypotension. He looks very depressed and he cries easily. He also has a tremor, which is resting tremor. He has a history of migraine. Also, he has multiple problems. REVIEW OF SYSTEMS: Positive for syncope, postural hypotension, which is pretty pronounced, congestive heart failure, posttraumatic stress disorder, knee replacement, cholecystectomy, anxiety and panic attack, tracheostomy after being on vent, C-spine perfusion, bleeding ulcer, AFib with pacemaker, migraine headache. This is a relevant 14-point review of system. PAST MEDICAL HISTORY: Positive for multiple episodes of syncope and pretty significant psychiatric problem. FAMILY HISTORY: Unremarkable. SOCIAL HISTORY: He does not smoke or drink any alcohol. PHYSICAL EXAMINATION: Indicate he is alert, crying. His speech looks intact. His memory is at his baseline. Cranial nerve examinations appear noncontributory. He moves all 4 extremities, looks like his position sense is intact. I could not look at the fundus. His cardiac examination is unremarkable. His blood pressure still drops when he stand up all the episode he ever had happened when he is upright. It never happens when he is lying down. His BUN is 46. He has no respiratory difficulty or rhonchi. His white count is 8.8. IMPRESSION AND PLAN: It is unlikely that there is any neurological etiology for the patient's symptom. It is most likely because of his postural hypotension. Question is whether he has [place] [address] CONSULTATION Name: DESTINY MENDES Room: [address]#: [id number] Admission: 11/07/19 Attend Phys: Vivienne Marquez MD Discharge: 11/10/19 Date of : 48 Report #: [id number]. It is difficult to tell at this time, but that question can be addressed as an outpatient. Thank you very much for this referral. <ELECTRONICALLY SIGNED> By: Hardik Abdullahi MD 11/11/19 1239 1845 [id number] Abdullahi MD /brittney
--- NOTE | 2019-11-11 12:39 | EEG ---
[address] [address] EEG STUDY REPORT Name: DESTINY MENDES Room: [address] IN M.R.#: [id number] Admission: 11/07/19 Attend Phys: Vivienne Marquez MD Discharge: 11/10/19 Date of : 48 Report #: [id number] THIS REPORT FOR: //name// CC: Vivienne Patrick This patient is being evaluated for episodes of syncope. EEG was done by placing the electrode by standard 10-20 system of electrode placement. Both referential and sequential montages were used for recording. Background activity in this patient's EEG is about 7-8 Hz and 30 microvolt. The patient went to sleep and that is associated with bilateral slowing and vertex sharp waves. Photic stimulation is unremarkable. No active epileptiform activity was noticed. IMPRESSION: This patient's EEG is intermixed with theta range slowing on both sides. That is a nonspecific abnormality, which can occur with dementia, encephalopathy, effect of psychotropic medication, etc. Clinical correlation recommended. <ELECTRONICALLY SIGNED> By: Hardik Abdullahi MD 11/11/19 1239 1343 [id number] Abdullahi MD /nt
== END 2019-11-10 13:53 | disposition home or self-care (01) | DRG 312 ==
LOC: M.ERS 11:17 → M.TBA-ER 12:32 → M.2W 12:32 → M.TBA 12:32 → M.TBA-ER 14:00 → M.2W 14:25
PROVIDERS: Family Medicine; ADMIT Internal Medicine; ATTEND Internal Medicine
DX: I95.1 Orthostatic hypotension (principal); I50.32 Chronic diastolic (congestive) heart failure; I13.0 Hypertensive heart and chronic kidney disease with heart failure and stage 1 through stage 4 chronic kidney disease, or unspecified chronic kidney disease; N18.2 Chronic kidney disease, stage 2 (mild); K21.9 Gastro-esophageal reflux disease without esophagitis; F41.9 Anxiety disorder, unspecified; I48.91 Unspecified atrial fibrillation; S00.03XA Contusion of scalp, initial encounter; S10.93XA Contusion of unspecified part of neck, initial encounter; W18.39XA Other fall on same level, initial encounter; S00.93XA Contusion of unspecified part of head, initial encounter; I49.5 Sick sinus syndrome; I25.10 Atherosclerotic heart disease of native coronary artery without angina pectoris; G47.39 Other sleep apnea; G25.2 Other specified forms of tremor; F43.10 Post-traumatic stress disorder, unspecified; E11.22 Type 2 diabetes mellitus with diabetic chronic kidney disease; Z43.0 Encounter for attention to tracheostomy; Y99.8 Other external cause status; Y92.89 Other specified places as the place of occurrence of the external cause; Z79.01 Long term (current) use of anticoagulants; Z95.0 Presence of cardiac pacemaker; Z87.01 Personal history of pneumonia (recurrent); Z79.891 Long term (current) use of opiate analgesic; Z79.899 Other long term (current) drug therapy; Z91.040 Latex allergy status; Z90.49 Acquired absence of other specified parts of digestive tract; Z98.84 Bariatric surgery status; Z91.048 Other nonmedicinal substance allergy status; Y93.89 Activity, other specified; Z98.1 Arthrodesis status; Z68.38 Body mass index [BMI] 38.0-38.9, adult; Z87.11 Personal history of peptic ulcer disease

== ENCOUNTER → 2020-07-25 | Outpatient (CLI) | payer BC, MEDICARE ==
[~2020-07-25] MED LIST changes: +CIPROFLOXACIN1 EACH EA. EYE; +DEPAKOTE ER500 M1 PO; +FLOMAX0.4 MG PO; +LAMOTRIGINE250 MG PO; +SINEMET 10-1001 EAC1 PO; +TOPROL XL25 MG PO; +XANAX2 MG PO
--- NOTE | 2020-07-25 17:24 | CARDNUC ---
[place] [address] CARDIAC NUCLEAR IMAGING REPORT Name: DESTINY MENDES Room: [facility]#: [id number] Admission: 07/25/20 Attend Phys: Denny Hodge, Discharge: Date of : 48 Date of Service: 07/25/20 1723 Report #: [id number] THIS REPORT FOR: cc: iSlke Rodriguez NP, Jessica NP Liston, Michael J. MD [facility] ~ APPROVED REPORT Study performed: 07/25/2020 10:04:59 Exam: Nuclear Stress Test Indication: Chest pain, Dyspnea, ABN Tilt Table Patient Location: Out-Patient Stress Tech: Cora Bender Stress Nurse: FERNY AVALOS Ht: 5 ft 10 in Wt: 180 lbs BSA: 2.00 m2 BMI: 25.82 Medical History Medical History: Carotid artery disease, Chest pain, dyspnea, ABN Tilt table, SSS, orthostatic hypotension, PAT, LINDY, Parkinson's/Tremors, increased fatigue, Low BS, Dizziness/Lightheadedness, Pacemaker, HTN, AFIB, past smoker, cervical vertebral fusion, DJD, Cane/wheelchair user. Medications: METOPROLOL SUCCINATE, MIDORINE, FLORINEF. Allergies: OXYCODONE, TAPE Cardiac Risk Factors: Age, HTN, SOB, Past Smoker, PAT, SSS. Previous Cardiac Procedures: PPM Pretest Chest Pain Characteristics: No chest pain Exercise History: Sedentary Physical Disabilities: Parkinson's/ wheelchair/cane user, pacemaker, HX AFib. Meds Held (24 hrs): Metoprolol succinate Stress Test Details Stress Test: Pharmacologic stress testing performed using 0.4 mg of regadenoson per 5 mL given IV over 10 seconds. HR Resting HR: 89 bpm Max Heart Rate (APMHR): 149 bpm Max HR Achieved: 110 bpm Target HR (85% APMHR): 126 bpm % of APMHR: 73 Recovery HR: 82 [place] [address] CARDIAC NUCLEAR IMAGING REPORT Name: DESTINY MENDES Room: [facility]#: [id number] Admission: 07/25/20 Attend Phys: Denny Hodge, Discharge: Date of : 48 Date of Service: 07/25/20 1723 Report #: [id number] Resting BP: 159/73 mmHg Max BP: 93/74 mmHg ECG Resting ECG: Atrial flutter with variable AV conduction and right bundle branch block with intermittent ventricular pacing Stress ECG: Atrial flutter with variable AV conduction and right bundle branch block with intermittent ventricular pacing ST Change: None Recovery ECG: Atrial flutter with variable AV conduction and right bundle branch block with intermittent ventricular pacing Recovery ST Change: None Clinical Reason for Termination: Completed protocol Stress Symptoms: Dyspnea, Left arm ache, headache, nausea, Chest pain 5/10, artifact influenced test. Exercise duration: 00 min 00 sec Exercise capacity: 1.00 METs The patient had chest discomfort with Lexiscan infusion rated 5 out of 10. Nurse Comments A 70 year old male presented for a sitting Lexiscan. Test well tolerated. Recovery unremarkable but included IV 60 mg caffeine to help resolve test symptoms, effective. Patient was stable and stated he felt good when escorted to Nuclear Medicine for imaging. Stress ECG Conclusion The baseline twelve-lead EKG showed atrial flutter with variable AV conduction and a right bundle branch block. There was intermittent ventricular pacing. EKGs obtained during NM EXAM: Myocardial Perfusion REST/STRESS Imaging Protocol: Rest Tc-99m/Stress Tc-99m 1 day Resting Data Rest SPECT myocardial perfusion imaging was performed in supine position 30 minutes following the intravenous injection of 11.0 mCi of Tc-99m Sestamibi. Time of rest injection: 08:15 The images were gated to evaluate regional wall motion and calculate left [place] [address] CARDIAC NUCLEAR IMAGING REPORT Name: DESTINY MENDES Room: [facility] [place]#: [id number] Admission: 07/25/20 Attend Phys: Denny Hodge, Discharge: Date of : 48 Date of Service: 07/25/20 1723 Report #: [id number] Administration Route: IV Administration Site: Right Arm Pharmacologic Stress Pharmacologic stress test was performed by injecting Regadenoson 0.4 mg IV push followed by the intravenous injection of 31.8 mCi of Tc-99m Sestamibi. Time of stress injection: 10:05 Administration Route: IV Administration Site: Right Arm Heart Rate at time of stress injection: 103 bpm. Gated Stress SPECT was performed 45 minutes after stress injection. The images were gated to evaluate regional wall motion and calculate left ventricular ejection fraction. Prone imaging was performed. Study Quality Study: Good Artifact: Mild Diaphragmatic artifact Study Data At rest, the left ventricular ejection fraction was 63%.. Post stress, the left ventricular ejection was 51%.. TID = 1.10. Perfusion Perfusion images obtained in the supine position show photopenia of the basal to mid inferior wall that appears to be due to diaphragmatic attenuation artifact. There is a reversible defect that is small in size and moderate in intensity involving the distal inferior and inferoapical wall. Wall Motion Global LV systolic function appears preserved. There is apical wall motion abnormality. Nuclear Conclusion ECG Findings: non-diagnostic Clinical Findings: positive for ischemia Nuclear Findings: positive for ischemia Exercise Capacity: not assessed Left Ventricular Function: Preserved Risk Study: moderate Perfusion images suggest a focal region of ischemia involving the distal inferior and inferoapical wall. [place] [address] CARDIAC NUCLEAR IMAGING REPORT Name: DESTINY MENDES [id number] Admission: 07/25/20 Attend Phys: Denny Hodge, Discharge: Date of : 48 Date of Service: 07/25/20 1723 Report #: [id number] is preserved. This is a moderate risk study. <Conclusion> The baseline twelve-lead EKG showed atrial flutter with variable AV conduction and a right bundle branch block. There was intermittent ventricular pacing. EKGs obtained during <ELECTRONICALLY SIGNED> By: Denny Hodge MD, FAC 07/25/201722 22 22 Denny Hodge MD, FACC /INF
== END ==
LOC: M.NUC 06-15 16:35
PROVIDERS: ATTEND Internal Medicine Cardiovascular Disease
DX: I25.10 Atherosclerotic heart disease of native coronary artery without angina pectoris (principal)

== ENCOUNTER → 2020-08-11 | Outpatient (CLI) | payer BC, MEDICARE ==
[2020-08-11] VITALS (9 sets, daily range): BP systolic 113–142; BP diastolic 51–74
[~2020-08-11] MED LIST changes: +CILOXAN5 ML EA. EYE; +DESYREL150 MG PO; +HYDROXYZINE HCL50 MG PO; +LAMOTRIGINE50 MG PO; +NEURONTIN300 MG PO
[2020-08-11 10:30] LABS: HEMATOCRIT 41.8 % (42.0-52.0); HEMOGLOBIN 14.3 gm/dL (14.0-18.0); MCHC 34.2 g/dL (28.0-37.0); MCV 96.4 fL (80.0-100.0); MPV 6.8 fl. (7.2-11.1); RBC 4.34 mil/uL (4.50-6.00); RDW-CV 16.3 % (10.5-14.5); WBC 6.7 thou/uL (4.0-11.0)
[2020-08-11 10:39] LABS: ANION GAP 8 mmol/L (7-16); BUN 17 mg/dL (7-18); CALCIUM 9.8 mg/dL (8.5-10.1); CHLORIDE 105 mmol/L (98-107); CHOLESTEROL 125 mg/dL (<200); CO2 31 mmol/L (21-32); GLUCOSE 88 mg/dL (70-99); HDL CHOLESTEROL 47 mg/dL (>40); LDL CHOLESTEROL 66 mg/dL (<100); SERUM ASSESSMENT Clear; SODIUM 144 mmol/L (136-145); TC:HDL 2.7 Ratio (Not establshd); TRIGLYCERIDE 63 mg/dL (<150); VLDL 13 mg/dL (<40)
[2020-08-11 10:49] LABS: APTT 25.6 Seconds (25.0-31.3)
--- NOTE | 2020-08-11 12:32 | CARD ---
[address] [address] CARDIAC CATH REPORT Name: DESTINY MENDES Room: [address] MErma#: [id number] Admission: 08/11/20 Attend Phys: Denny Hodge MD Discharge: Date of : 48 Report #: [id number] THIS REPORT FOR: cc: Silke Rodriguez NP, Jessica NP ~ Denny Hodge MD [facility] APPROVED REPORT Study performed: 08/11/2020 10:54:54 Patient Details Patient Status: Out-Patient Room #: The patient is a 70 year-old male Event Personnel Santos Miles Reeves, Adam RTR Monitor, Denny Hodge Ruling Technician, Jackeline Tena RN studio engineer Performed Left Heart Cath w/or w/o Coronaries [id number] [facility] Hemostasis w/ Mynx Admission/Lab Medications/Medications given during procedure Fentanyl IV 25 mcg, Midazolam (Versed) IV 1 mg, Lidocaine Subcut 20 ml Procedure Narrative The patient was brought electively to the Cardiac Catheterization Laboratory and was prepped and draped in a sterile manner. The right femoral was infiltrated with 2% Lidocaine subcutaneous anesthesia. A [place] 6 FR sheath was inserted into the right femoral artery. Coronary angiography was performed using coronary diagnostic catheters. The right coronary system was accessed and visualized with a Diagnostic JR4 6Fr catheter. The left coronary system was accessed and visualized with a Diagnostic JL4 6Fr catheter. The left ventricle was accessed and visualized with a Diagnostic Pigtail 6Fr catheter. Closure device was deployed with a 6 Fr Mynx. The patient tolerated the procedure well and there were no complications associated with the procedure. There was no hematoma. Intraoperative Conscious Sedation Sedation start time: 1125 Case end Time: 114 Fentanyl 25 mcg Versed 1 [place] [address] CARDIAC CATH REPORT Name: DESTINY MENDES ANDRZEJ Room: [address] M.R.#: [id number] Admission: 08/11/20 Attend Phys: Denny Hodge MD Discharge: Date of : 48 Report #: [id number] Fluoro Time: 1.6 minutes Dose: DAP 77260 cGycm2 875.98 mGy Contrast Type and Amount: Omnipaque 100 ml Coronary Angiography The patient's coronary anatomy is right dominant. Diagnostic Cath Left Main The left main coronary artery is calcified without hemodynamically significant stenosis. The left main bifurcates into a left anterior descending and circumflex coronary artery. LAD The left into descending coronary artery is heavily calcified proximally. There is a 50% proximal and 50% mid LAD stenosis. The distal vessel is moderately plaque without hemodynamically significant stenosis. Diagonal 1 A large first diagonal branch is free of significant disease. Diagonal 2 A small second diagonal branch is free of significant disease. Circumflex The ostial/proximal circumflex is heavily calcified with an eccentric plaque and felt to be 60% narrowed. The mid and distal vessel are free of significant disease. OM1 A very high rising small in size first obtuse marginal branch is free of significant disease. OM2 A moderate sized second obtuse marginal branch is free of significant disease. OM3 A small third obtuse marginal branch is free of significant disease. Right Coronary The right coronary artery is minimally plaque proximally. There is approximately 40% narrowing in the distal portion. R PDA A moderate-sized PDA is free of significant disease. RPLV A small branched posterior lateral LV branch is free of significant disease. Left Ventriculography The left ventricle is normal in size with normal contractility. The left ventricular ejection fraction is estimated to be 55 to 60%. Hemodynamics The aortic pressure is 133/65 mmHg with a mean of 90 mmHg. The left ventricular pressure is 132/3 mmHg with a mean of mmHg. The left ventricular end diastolic pressure is 11 [place] [address] CARDIAC CATH REPORT Name: DESTINY MENDES Room: [address] M.R.#: [id number] Admission: 08/11/20 Attend Phys: Denny Hodge MD Discharge: Date of : 48 Report #: [id number] Conclusion 1. Moderate nonocclusive coronary artery disease as outlined above. 2. Normal left ventricular end-diastolic pressure. 3. Normal left ventricular systolic function. Recommendations 1. Continue aggressive risk factor modification and medical management. <ELECTRONICALLY SIGNED> By: Denny Hodge MD, FACC 08/11/20 1232 1232 1232Micalfredo Hodge MD, FACC /INF
--- NOTE | 2020-08-11 15:12 | EKG ---
[place] [address] ELECTROCARDIOGRAM REPORT Name: VAUGHNDESTINYMAIRA DONNELLY Room: [address] M.R.#: [id number] Admission: 08/11/20 Attend Phys: Denny Hodge, Discharge: Date of : 48 Date of Service: 08/11/20 1034 Report #: [id number] THIS REPORT FOR: //name// [facility] Test Date: 2020-08-11 Test Time: 10:34:44 Pat Name: DESTINY MENDES Department: Room: [place] [address] Gender: M Authors Motivational: JUANITO : 1950 Requested By: Denny Hodge Order Number: [id number] Reading MD: Denny Hodge Measurements Intervals [place] Rate: 69 P: IA: QRS: -75 QRSD: 171 T: 91 QT: 473 QTc: 507 Interpretive Statements Afib/flutter and ventricular-paced rhythm No further analysis attempted due to paced rhythm Compared to ECG 11/06/2019 11:35:07 No significant changes Electronically Signed On 08-11-2020 15:12:08 CDT by Denny Hodeg [email or web address] <ELECTRONICALLY SIGNED> By: Denny Hodge MD, FAC 08/11/20 1512 1034 1034 Denny Hodge MD, [facility] /EPI
== END | disposition home or self-care (01) ==
LOC: M.CL 09:41 → M.TBA-CV 10:08 → M.CL 10:08 → M.TBA-CV 10:08 → M.CL 11:00
PROVIDERS: ATTEND Internal Medicine Cardiovascular Disease
DX: I25.10 Atherosclerotic heart disease of native coronary artery without angina pectoris (principal); I48.91 Unspecified atrial fibrillation; I50.9 Heart failure, unspecified; G43.909 Migraine, unspecified, not intractable, without status migrainosus; K21.9 Gastro-esophageal reflux disease without esophagitis; Z98.890 Other specified postprocedural states; Z79.899 Other long term (current) drug therapy; Z87.19 Personal history of other diseases of the digestive system; Z87.891 Personal history of nicotine dependence; Z96.651 Presence of right artificial knee joint; Z79.01 Long term (current) use of anticoagulants; Z95.0 Presence of cardiac pacemaker; Z98.0 Intestinal bypass and anastomosis status; Z90.49 Acquired absence of other specified parts of digestive tract; Z98.84 Bariatric surgery status